=== PATIENT | male | born 1945 | race Caucasian/White ===

== ENCOUNTER → 2017-11-27 | Outpatient (CLI) | payer OTHER ==
[~2017-11-27] MED LIST: ATOR40TA71 PO; DOXA8TAB81 PO; HYDR12.54 PO; LISI10TA7 PO; POTA99TA4 PO; RIVA20TA PO; TRAM50TA4 PO; TURM500C9 PO; TYL3 PO
== END | disposition home or self-care (01) ==
LOC: SHCH 15:48
PROVIDERS: ATTEND Internal Medicine Cardiovascular Disease
DX: I87.2 Venous insufficiency (chronic) (peripheral) (principal)
CPT/HCPCS: 93970

== ENCOUNTER → 2018-01-30 | Outpatient (CLI) | payer OTHER | END | disposition home or self-care (01) | LOC: SHCH 09:05 | PROVIDERS: ATTEND Internal Medicine Cardiovascular Disease | DX: R60.9 Edema, unspecified (principal); I10 Essential (primary) hypertension; I48.91 Unspecified atrial fibrillation; E78.00 Pure hypercholesterolemia, unspecified | CPT/HCPCS: 93306 ==

== ENCOUNTER 2018-04-04 06:23 | Day surgery (SDC) | payer OTHER ==
[2018-04-03 15:43] VITALS: BP 153/56
[2018-04-03 15:47] LABS: BASOPHILS % (AUTO) 1.4 % (0.0-5.0); EOSINOPHILS % (AUTO) 1.7 % (0.0-8.0); HEMATOCRIT 38.2 % (42-54); LYMPHOCYTES % (AUTO) 15.9 % (21.0-51.0); MEAN CORPUSCULAR HEMOGLOBIN 30.3 pg (27.0-33.0); MEAN CORPUSCULAR HGB CONC 33.7 g/dL (32.0-36.0); MONOCYTES % (AUTO) 9.3 % (3.0-13.0); NEUTROPHILS % (AUTO) 71.7 % (40.0-77.0); NUCLEATED RED BLOOD CELLS 0.1 % (0.0-0.19); PLATELET COUNT (AUTO) 347 K/uL (130-400); RED BLOOD CELL COUNT(AUTO) 4.24 MIL/uL (4.50-6.20); RED CELL DISTRIBUTION WIDTH 13.5 % (11.0-15.5); WHITE BLOOD COUNT (AUTO) 8.9 K/uL (4.8-10.8)
[2018-04-03 15:56] LABS: CREATININE 1.3 mg/dL (0.5-1.5); POTASSIUM 4.2 mmol/L (3.5-5.1)
[2018-04-04] VITALS (13 sets, daily range): BP systolic 113–139; BP diastolic 40–67
[~2018-04-04] VITALS: Ht 177.8 cm; Wt 122.6 kg
[2018-04-04] MEDS: CEFAZOLIN SODIUM 1 GM VIAL IVP SCH ×2 (06:00→08:20)
[~2018-04-04 06:23] MED LIST changes: -POTA99TA4 PO; -TRAM50TA4 PO; -TYL3 PO
[2018-04-04] MEDS ORDERED: CEFAZOLIN SODIUM 1 GM VIAL ONE (07:17)
[2018-04-04] MEDS ORDERED: LACTATED RINGERS 1000ML 1,000 ML IV ONE (07:17)
[2018-04-04] MEDS ORDERED: DEXAMETHASONE SOD PHOSPHATE 10MG/ML 1ML VIAL ONE (08:10)
[2018-04-04] MEDS ORDERED: LIDOCAINE PF 2% 5ML ABBOJECT ONE (08:10)
[2018-04-04] MEDS ORDERED: ONDANSETRON HCL 4 MG/2 ML VIAL ONE (08:10)
[2018-04-04] MEDS ORDERED: GLYCOPYRROLATE 0.2 MG/ML 5 ML VIAL ONE (08:10)
[2018-04-04] MEDS ORDERED: MIDAZOLAM HCL 1 MG/ML 2ML VIAL ONE (08:11)
[2018-04-04] MEDS ORDERED: FENTANYL CITRATE PF 50 MCG/1 ML 2ML VIAL ONE (08:11)
[2018-04-04] MEDS ORDERED: PROPOFOL 10 MG/ML 20ML VIAL IV ONE (08:11)
[2018-04-04] MEDS ORDERED: POTA99TA4 PO (08:56)
[2018-04-04] MEDS ORDERED: TRAM50TA4 PO ×2 (08:56)
[2018-04-04] MEDS ORDERED: TYL3 PO (09:00)
[2018-04-04] MEDS ORDERED: MEPERIDINE-PF 25 MG/ML SYG ONE (09:21)
== END 2018-04-04 10:50 | disposition home or self-care (01) ==
LOC: DAH 06:23
PROVIDERS: ATTEND Orthopaedic Surgery
DX: S52.532A Colles' fracture of left radius, initial encounter for closed fracture (principal); X58.XXXA Exposure to other specified factors, initial encounter; Y93.9 Activity, unspecified; Y92.89 Other specified places as the place of occurrence of the external cause; Y99.9 Unspecified external cause status; I10 Essential (primary) hypertension; Z86.73 Personal history of transient ischemic attack (TIA), and cerebral infarction without residual deficits; Z98.890 Other specified postprocedural states; Z98.41 Cataract extraction status, right eye; Z68.42 Body mass index [BMI] 45.0-49.9, adult; Z68.37 Body mass index [BMI] 37.0-37.9, adult; E66.01 Morbid (severe) obesity due to excess calories; Z82.49 Family history of ischemic heart disease and other diseases of the circulatory system
CPT/HCPCS: 25606; 36415; 76000; 80048; 85025; 93005; A4218; A4649 ×2; A4930; A6223; C1713; J0690; J1100; J2001; J2175; J2250; J2405; J2704; J3010; J3490; J7120; Q4051

== ENCOUNTER → 2018-04-17 | Outpatient (CLI) | payer OTHER ==
[~2018-04-17] MED LIST changes: +POTA99TA4 PO; +TRAM50TA4 PO; +TYL3 PO
== END | disposition home or self-care (01) ==
LOC: SHCH 13:57
PROVIDERS: ATTEND Internal Medicine Cardiovascular Disease
DX: I87.2 Venous insufficiency (chronic) (peripheral) (principal)
CPT/HCPCS: 93970

== ENCOUNTER → 2019-12-10 | Outpatient (CLI) | payer OTHER | END | disposition home or self-care (01) | LOC: SHCH 11:10 | PROVIDERS: ATTEND Internal Medicine Cardiovascular Disease | DX: I87.2 Venous insufficiency (chronic) (peripheral) (principal) | CPT/HCPCS: 93970 ==

== ENCOUNTER → 2020-07-08 | Outpatient (CLI) | payer OTHER | END | disposition home or self-care (01) | LOC: SHCH 13:40 | PROVIDERS: ATTEND Internal Medicine Cardiovascular Disease | DX: I51.7 Cardiomegaly (principal); R07.9 Chest pain, unspecified; R06.09 Other forms of dyspnea; I73.9 Peripheral vascular disease, unspecified | CPT/HCPCS: 93306; 93356; 93925 ==

== ENCOUNTER → 2021-04-19 | Outpatient (CLI) | payer OTHER ==
[~2021-04-19] MED LIST changes: +LISI10TA24 PO; -LISI10TA7 PO
== END | disposition home or self-care (01) ==
LOC: SHCH 12:59
PROVIDERS: ATTEND Internal Medicine Cardiovascular Disease
DX: I87.2 Venous insufficiency (chronic) (peripheral) (principal); I83.893 Varicose veins of bilateral lower extremities with other complications
CPT/HCPCS: 93970

== ENCOUNTER → 2022-01-17 | Outpatient (CLI) | payer OTHER | END | disposition home or self-care (01) | LOC: SHCH 12:39 | PROVIDERS: ATTEND Internal Medicine Cardiovascular Disease | DX: I87.2 Venous insufficiency (chronic) (peripheral) (principal); Z95.828 Presence of other vascular implants and grafts | CPT/HCPCS: 93970 ==

== ENCOUNTER → 2022-02-21 | Outpatient (CLI) | payer OTHER ==
[2022-02-21 12:23] LABS: BASOPHILS % (AUTO) 0.9 % (0.0-5.0); EOSINOPHILS % (AUTO) 1.4 % (0.0-8.0); LYMPHOCYTES % (AUTO) 18.7 % (21.0-51.0); MEAN CORPUSCULAR HEMOGLOBIN 27.7 pg (27.0-33.0); MEAN CORPUSCULAR VOLUME 92.4 fL (79-99); MONOCYTES % (AUTO) 8.7 % (3.0-13.0); NEUTROPHILS % (AUTO) 69.7 % (40.0-77.0); PLATELET COUNT (AUTO) 532 K/uL (130-400); RED BLOOD CELL COUNT(AUTO) 3.68 MIL/uL (4.50-6.20); RED CELL DISTRIBUTION WIDTH 14.5 % (11.0-15.5); WHITE BLOOD COUNT (AUTO) 12.4 K/uL (4.8-10.8)
[2022-02-21 12:34] LABS: INR 1.38 (0.85-1.15); PROTHROMBIN TIME 14.6 SEC (9.6-11.6)
[2022-02-21 12:35] LABS: PARTIAL THROMBOPLASTIN TIME 40.4 SEC (26.3-35.5)
[2022-02-21 12:42] LABS: CREATININE 1.3 mg/dL (0.5-1.5); POTASSIUM 4.5 mmol/L (3.5-5.1)
== END | disposition home or self-care (01) ==
LOC: LAB 10:27
PROVIDERS: ATTEND Internal Medicine Cardiovascular Disease
DX: I48.91 Unspecified atrial fibrillation (principal); I87.1 Compression of vein; I87.2 Venous insufficiency (chronic) (peripheral)
CPT/HCPCS: 36415; 80048; 85025; 85610; 85730

== ENCOUNTER → 2022-05-09 | Outpatient (CLI) | payer OTHER | END | disposition home or self-care (01) | LOC: RAH 13:00 | PROVIDERS: ATTEND Family Medicine | DX: I82.601 Acute embolism and thrombosis of unspecified veins of right upper extremity (principal); R60.9 Edema, unspecified; G45.8 Other transient cerebral ischemic attacks and related syndromes | CPT/HCPCS: 93971 ==

== ENCOUNTER → 2022-08-08 | Outpatient (CLI) | payer OTHER | END | disposition home or self-care (01) | LOC: SHCH 14:28 | PROVIDERS: ATTEND Internal Medicine Cardiovascular Disease | DX: I48.0 Paroxysmal atrial fibrillation (principal); E78.5 Hyperlipidemia, unspecified; I48.20 Chronic atrial fibrillation, unspecified | CPT/HCPCS: 93306 ==

== ENCOUNTER → 2023-08-12 | Outpatient (CLI) | payer OTHER ==
[2023-08-12 16:14] LABS: BASOPHILS # (AUTO) 0.13 K/uL (0.00-0.20); BASOPHILS % (AUTO) 1.3 % (0.0-5.0); EOSINOPHILS # (AUTO) 0.38 K/uL (0.00-0.70); EOSINOPHILS % (AUTO) 3.9 % (0.0-8.0); HEMATOCRIT 35.2 % (42-54); IMMATURE GRANULOCYTE ABSOLUTE 0.03 K/uL (0-1); LYMPHOCYTES # (AUTO) 1.3 K/uL (1.0-4.8); LYMPHOCYTES % (AUTO) 13.9 % (21.0-51.0); MEAN CORPUSCULAR HGB CONC 30.7 g/dL (32.0-36.0); MEAN CORPUSCULAR VOLUME 94.4 fL (79-99); MONOCYTES # (AUTO) 0.9 K/uL (0.1-1.0); MONOCYTES % (AUTO) 8.8 % (3.0-13.0); NEUTROPHILS # (AUTO) 6.9 K/uL (1.8-7.7); NEUTROPHILS % (AUTO) 71.8 % (40.0-77.0); PLATELET COUNT (AUTO) 426 K/uL (130-400); RED BLOOD CELL COUNT(AUTO) 3.73 MIL/uL (4.50-6.20); RED CELL DISTRIBUTION WIDTH 16.3 % (11.0-15.5); WHITE BLOOD COUNT (AUTO) 9.7 K/uL (4.8-10.8)
[2023-08-12 16:21] LABS: CREATININE 1.6 mg/dL (0.5-1.5); POTASSIUM 4.4 mmol/L (3.5-5.1)
[2023-08-12 16:26] LABS: INR 1.14 (0.85-1.15); PROTHROMBIN TIME 13.1 SEC (9.6-11.6)
[2023-08-12 16:28] LABS: PARTIAL THROMBOPLASTIN TIME 38.6 SEC (26.3-35.5)
== END | disposition home or self-care (01) ==
LOC: LAB 14:27
PROVIDERS: ATTEND Internal Medicine Cardiovascular Disease
DX: I87.2 Venous insufficiency (chronic) (peripheral) (principal); I87.1 Compression of vein; I89.0 Lymphedema, not elsewhere classified; I10 Essential (primary) hypertension; E78.5 Hyperlipidemia, unspecified; M79.89 Other specified soft tissue disorders; E66.01 Morbid (severe) obesity due to excess calories; Z68.41 Body mass index [BMI] 40.0-44.9, adult; Z95.820 Peripheral vascular angioplasty status with implants and grafts; Z79.899 Other long term (current) drug therapy
CPT/HCPCS: 36415; 80048; 85025; 85610; 85730

== ENCOUNTER 2024-09-05 16:22 | Inpatient (IN) | payer OTHER ==
[~2024-09-05] VITALS: Ht 180.3 cm; Wt 135.6 kg
[2024-09-05] MEDS: ketOROlac 15MG/ML VIAL (15MG/ML) IV ONE (16:49)
[2024-09-05] MEDS: 0.9%NACL 1000ML 1,000 ML IV ONE (16:50)
--- NOTE | 2024-09-05 16:50 | ERN ---
General Chief Complaint: Weakness Stated Complaint: GBW Time Seen by MD: 16:24 History of Present Illness Initial Comments 79M BIB EMS from home for watery diarrhea & weakness x 2 days. Patient reports multiple episodes of watery diarrhea, non bloody, for past 2 days. Mild abdominal discomfort. No n/v. Decreased PO intake. No cough or congestion. Patient reports feeling quite weak. Hx: lymphedema to legs PCP: Yao Allergies: Coded Allergies: No Known Drug Allergies (Unverified Allergy, Unknown, 04/03/18) Home Meds Active Scripts Acetaminophen with Codeine (Tylenol with Codeine #3) 1 Tab Tab, 1-2 TAB PO Q6H for PAIN LEVEL 6-10, #60 TAB 1 Refill Prov:JAN JARRETT MD 04/04/18 Reported Medications Tramadol Hcl (Tramadol HCl) 50 Mg Tablet, 50 MG PO Q4H PRN for PAIN LEVEL 1 TO 5, TAB 04/04/18 Potassium (Potassium) 99 Mg Tablet, 99 MG PO AM, TAB 04/04/18 Doxazosin Mesylate (Doxazosin Mesylate) 8 Mg Tablet, 8 MG PO HS, TAB 04/03/18 Turmeric Root Extract (Turmeric) 500 Mg Capsule, 500 MG PO BID, CAP 04/03/18 Atorvastatin Calcium (Atorvastatin Calcium) 40 Mg Tablet, 20 MG PO DAILY, TAB 04/03/18 Hydrochlorothiazide (Hydrochlorothiazide) 12.5 Mg Tablet, 25 MG PO DAILY, TAB 04/03/18 Rivaroxaban (Xarelto) 20 Mg Tablet, 20 MG PO HS, TAB 04/03/18 Lisinopril (Lisinopril) 10 Mg Tablet, 10 MG PO DAILY, TAB 04/03/18 Past Medical History Past Medical History: Heart Disease Medical History Other: LYMPH EDEMA Past Surgical History: Other Surgical History Other: BILAT LEG STENTS ROS Dictation CONSTITUTIONAL: Weakness HEAD/FACE: No signs of trauma. EENT: No eye pain, no blurred vision, no tearing, no double vision, no ear pain, no ear discharge, no nose pain, no nasal congestion, no throat pain, no throat swelling, no mouth pain. RESPIRATORY: No cough, no orthopnea, no SOB, no stridor, no wheezing. CARDIOVASCULAR: No chest pain, no edema, no palpitations, no syncope. GASTROINTESTINAL/ABDOMINAL: Diarrhea GENITOURINARY: No abnormal discharge, no dysuria, no frequent urination, no hematuria. No complaints of pain in the genitals. MUSCULOSKELETAL: No back pain, no gout, no joint pain, no joint swelling, no muscle pain, no muscle stiffness, no neck pain. INTEGUMENTARY: No change in color, no change in hair/nails, no dryness, no lesion, no lumps, no rash. NEUROLOGICAL/PSYCH: No anxiety, not depressed, no emotional problem, no headache, no numbness, no pre-existing deficit, no history of seizures, no tremors, no weakness. HEMATOLOGIC/LYMPHATIC: Not anemic, no history of blood clots, no apparent bleeding, no bruising, glands not swollen. All Systems Negative, Except as Noted. Physical Exam Physical Exam Dictation VITAL SIGNS: Reviewed. GENERAL APPEARANCE: Alert, oriented x3, no acute distress, obese. HEAD AND FACE: Non-traumatic. EYES: PERRL, pink conjunctivas, eyelid no trauma, anterior chamber clear. EARS: Pinnas intact and no signs of trauma or erythema. Ear canals clear and no discharge. TMs no erythema. NOSE: No discharge, no bleeding. OROPHARYNX: Mouth normal, teeth no caries, tongue pink. Pharynx clear, no erythema. Tonsils no exudates, no abscesses noted. Mucous membrane moist. NECK: Supple, non-tender, no thyromegaly, no masses, no JVD, no bruits. BREAST: Deferred. CHEST: No tenderness, no crepitus, no paradoxical movement, no retractions. LUNGS: Clear, well-ventilated, symmetric, no rales, no wheezing, no rhonchi, no stridor, good breath sounds bilaterally. HEART: Regular rate, regular rhythm, no murmur, no gallops. VASCULAR: No peripheral edema. ABDOMEN: Soft, positive bowel sounds, nondistended, no guarding, nontender, no rebound, no masses no hepatomegaly, no splenomegaly, no Boyd's sign, no hernias. RECTAL: Deferred. GENITAL: Deferred. NEUROLOGICAL: Normal speech, gross motor function intact, gross sensory function intact. MUSCULOSKELETAL: Pedal edema bilateral legs chronic EXTREMITIES: Nontender, full range of motion. SKIN: Color pink, dry, no turgor, no rash, no lacerations, no abrasions, no contusions. LYMPHATICS: Deferred. Results Laboratory and Microbiology Lab and Micro Result Laboratory Tests Test 09/05/24 16:39 09/05/24 16:49 09/05/24 18:05 White Blood Count 18.1 K/uL (4.8-10.8) H Red Blood Count 3.61 MIL/uL (4.50-6.20) L Hemoglobin 9.3 g/dL (14.0-18.0) L Hematocrit 30.5 % (42-54) L Mean Corpuscular Volume 84.5 fL (79-99) Mean Corpuscular Hemoglobin 25.8 pg (27.0-33.0) L Mean Corpuscular Hemoglobin Concent 30.5 g/dL (32.0-36.0) L Red Cell Distribution Width 18.0 % (11.0-15.5) H Platelet Count 391 K/uL (130-400) Mean Platelet Volume 9.1 fL (7.5-10.5) Immature Granulocyte % (Auto) 1.7 % (0-1) H Neutrophils (%) (Auto) 91.0 % (40.0-77.0) H Lymphocytes (%) (Auto) 0.8 % (21.0-51.0) L Monocytes (%) (Auto) 5.5 % (3.0-13.0) Eosinophils (%) (Auto) 0.8 % (0.0-8.0) Basophils (%) (Auto) 0.2 % (0.0-5.0) Neutrophils # (Auto) 16.5 K/uL (1.8-7.7) H Lymphocytes # (Auto) 0.1 K/uL (1.0-4.8) L Monocytes # (Auto) 1.0 K/uL (0.1-1.0) Eosinophils # (Auto) 0.14 K/uL (0.00-0.70) Basophils # (Auto) 0.03 K/uL (0.00-0.20) Absolute Immature Granulocyte (auto 0.31 K/uL (0-1) Segmented Neutrophils % 77 % (40-70) H Band Neutrophils % 18 % (0-2) H Lymphocytes % (Manual) 1 % (22-44) L Monocytes % (Manual) 4 % (2-9) Nucleated Red Blood Cells 0.0 % (0.0-0.19) Differential Comment MANUAL DIFFERENTIAL White Cell Morphology Comment CONSISTENT W/DIFF Platelet Morphology Comment ADEQUATE Red Blood Cell Morphology See comments Sodium Level 133 mmol/L (136-145) L Potassium Level 3.8 mmol/L (3.5-5.1) Chloride Level 94 mmol/L (101-111) L Carbon Dioxide Level 35 mmol/L (21-32) H Blood Urea Nitrogen 43 mg/dL (7-18) H Creatinine 1.8 mg/dL (0.5-1.3) H Glomerular Filtration Rate Calc 38 mL/min (>90) Random Glucose 125 mg/dL (70-105) H Lactic Acid Level 3.3 mmol/L (0.8-2.5) H Total Calcium 8.0 mg/dL (8.5-10.1) L Total Bilirubin 1.1 mg/dL (0.2-1.0) H Direct Bilirubin 0.5 mg/dL (0.0-0.3) H Aspartate Amino Transf (AST/SGOT) 60 U/L (10-37) H Alanine Aminotransferase (ALT/SGPT) 18 U/L (12-78) Alkaline Phosphatase 90 U/L (50-136) Troponin I High Sensitivity 137 ng/L (4-75) *H Total Protein 5.9 g/dL (6.0-8.3) L Albumin 2.4 g/dL (3.5-5.0) L Lipase 8 U/L (16-77) L Procalcitonin 1.25 ng/mL (0.05-0.5) H Blood Gas Specimen Type Arterial Arterial Blood pH 7.450 (7.350-7.450) Arterial Blood Partial Pressure CO2 49 mmHg (35-48) H Arterial Blood Partial Pressure O2 45.7 mmHg (83.0-108.0) Arterial Blood HCO3 33.2 mmol/L (21.0-28.0) H Arterial Blood Oxygen Saturation 83.1 % (94.0-98.0) L Arterial Blood Base Excess 7.8 mmol/L (-2.0-3.0) H Blood Gas Temperature 37.0 CELSIUS (35.5-37.0) Blood Gas Vent Mode RA (ROOM AIR) FiO2 21.0 % Blood Gas Specimen Comment RBJUAN Urine Color YELLOW (YELLOW) Urine Appearance HAZY (CLEAR) Urine pH 5.0 (5.0-8.0) Urine Specific Jbphh 1.020 (1.001-1.031) Urine Protein 30 mg/dL (NEGATIVE) H Urine Glucose (UA) NEGATIVE mg/dL (NEGATIVE) Urine Ketones NEGATIVE mg/dL (NEGATIVE) Urine Occult Blood +- (TRACE) (NEGATIVE) H Urine Nitrate NEGATIVE (NEGATIVE) Urine Bilirubin NEGATIVE mg/dL (NEGATIVE) Urine Urobilinogen 3 mg/dL (0.2-1.0) H Urine Leukocyte Esterase 75 Haley/uL (NEGATIVE) H Urine RBC 6-10 /HPF (0-1) H Urine WBC 6-10 /HPF (0-1) H Urine Squamous Epithelial Cells RARE /HPF (0-2) Urine Bacteria FEW /HPF (None Seen) Urine Hyaline Casts 2-5 /LPF (0-1 /LPF) H MDM CC: Vomiting weakness diarrhea Historian: Patient Comorbidities: Lymphedema, obesity, advanced age Limitations by social determinants of health: None Differential diagnosis: Dehydration, gastroenteritis, electrolyte abnormality, sepsis, other. Vital signs: Afebrile, respiratory rate of 22, blood pressure stable. Patient did have episode of desaturation into the 80s, placed on 2 L nasal cannula. Labs show leukocytosis [id number] there is a left shift without bands. Normocytic anemia hemoglobin of 9.3. Blood gas shows normal pH, the pCO2 is 49 in the PaO2 his 45. Placed on 2 L oxygen. Chemistry shows dehydration sodium 133 chloride 94, the BUN is 43 and the creatinine is 1.8. Mild LY on CKD based on previous labs. Lactic acid is elevated 3.3. Patient's liver enzymes are relatively stable, lipase stable. Troponins mildly elevated 137, I suspect type 2 demand. Has not elevated pro count 1.25. Urinalysis shows some leuk esterase but is relatively unremarkable. CT abdomen and pelvis without contrast shows no free air or obvious abnormalities or surgical pathology per my independent interpretation. Radiology read the CT report which confirms no surgical pathology. Chest x-ray per my interpretation shows some vascular congestion and cardiomegaly. CT angio per my interpretation shows no obvious pulmonary embolism or saddle embolus. Lung chu are relatively clear. Here in the ER patient received IV Zosyn, Toradol, and 3 L of normal saline. On sepsis focused re-evaluation after the fluids and Zosyn, the patient has stable perfusion. We will admit for sepsis, respiratory failure with hypoxia, and others. ED Course Orders Procedure Category Date Status Time Cbc With Differential LAB 09/05/24 Complete 16:25 Troponin I High LAB 09/05/24 Complete Sensitivity 16:25 Urinalysis Profile LAB 09/05/24 Complete 16:25 0.9%Nacl 1000ml (Ns PHA 09/05/24 Complete 1000ml) 16:30 Ct Abdomen/Pelvis W/O CT 09/05/24 Resulted Contrast 16:25 Chest 1vw RAD 09/05/24 Resulted 16:25 Lipase LAB 09/05/24 Complete 16:25 Basic Metabolic Panel LAB 09/05/24 Complete 16:25 Hepatic Function Panel LAB 09/05/24 Complete 16:25 Procalcitonin LAB 09/05/24 Complete 16:25 Arterial Blood Gas RT 09/05/24 Transmitted 16:32 Lactic Acid LAB 09/05/24 Complete 16:39 Blood Cult MELONIE 09/05/24 In Process 16:39 Ketorolac PHA 09/05/24 Complete Tromethamine 15mg/Ml 17:00 Arterial Blood Gas LAB 09/05/24 Complete 16:49 Zosyn 3.375gm+Ns 50ml PHA 09/05/24 In Process (Zosyn 3.375gm+Ns 17:00 0.9%Nacl 1000ml (Ns PHA 09/05/24 Complete 1000ml) 17:00 Manual Differential LAB 09/05/24 Complete 16:39 Ct Chest Pe Protocol CT 09/05/24 Resulted Wwo Cont 17:32 Iohexol (Omnipaque) PHA 09/05/24 Complete 18:02 Culture Urine MELONIE 09/05/24 In Process 18:17 Current Medications Medications (Trade) Dose Ordered Sig/Coral Route PRN Reason Start Time Stop Time Status Last Admin Dose Admin Iohexol (Omnipaque) 35,000 mg STK-MED ONCE IV 09/05/24 18:02 09/05/24 18:05 DC Ketorolac Tromethamine (toRADol) 15 mg ONCE ONCE IV 09/05/24 17:00 09/05/24 17:01 DC 09/05/24 16:49 Piperacillin Sod/ Tazobactam Sod (Zosyn 3.375gm+NS 50ml) 3.375 gm Q8H IV 09/05/24 17:00 09/15/24 16:59 09/05/24 18:30 Sodium Chloride 1,000 ml @ 0 mls/hr ONCE ONCE IV 09/05/24 16:30 09/05/24 16:31 DC 09/05/24 16:50 Sodium Chloride 2,000 ml @ 0 mls/hr ONCE ONCE IV 09/05/24 17:00 09/05/24 17:02 DC 09/05/24 17:15 Vital Signs Date Time Temp Pulse Resp B/P (MAP) Pulse Ox O2 Delivery O2 Flow Rate FiO2 09/05/24 18:33 99.0 74 22 120/74 95 Nasal Cannula* 2 28 09/05/24 16:24 99.1 90 18 125/56 DX & DISP Disposition: Inpatient Departure Impression: Primary Impression: Sepsis Additional Impressions: Respiratory failure with hypoxia, Normocytic anemia, LY (acute kidney injury), Elevated troponin, UTI (urinary tract infection), Community acquired pneumonia Critical Time: 30 minutes (Critical Care Procedure NoteAuthorized and Performed by: meTotal critical care time: Approximately 36 minutesDue to a high probability of clinically significant, life threatening deterioration, the patient required my highest level of preparedness to intervene emergently and I personally spent this critical care time directly and personally managing the patient. This critical care time included obtaining a history; examining the patient; pulse oximetry; ordering and review of studies; arranging urgent treatment with development of a management plan; evaluation of patient's response to treatment; frequent reassessment; and, discussions with other providers.This critical care time was performed to assess and manage the high probability of imminent, life-threatening deterioration that could result in multi-organ failure. It was exclusive of separately billable procedures and treating other patients and teaching time.Please see MDM section and the rest of the note for further information on patient assessment and treatment.) Condition: Stable Referrals: KITTY NOVA MD (PCP) ALEXIS AZEVEDO DO Sep 05, 2024 16:50
[2024-09-05 16:51] LABS: ABG BASE EXCESS 7.8 mmol/L (-2.0-3.0); ABG HCO3 33.2 mmol/L (21.0-28.0); ABG OXYGEN SATURATION 83.1 % (94.0-98.0); ABG PCO2 49 mmHg (35-48); DEVICE COMMENT RBJUAN; PO2, ARTERIAL BG 45.7 mmHg (83.0-108.0); VENT MODE, BG RA (ROOM AIR)
[2024-09-05 16:55] LABS: BASOPHILS # (AUTO) 0.03 K/uL (0.00-0.20); BASOPHILS % (AUTO) 0.2 % (0.0-5.0); EOSINOPHILS # (AUTO) 0.14 K/uL (0.00-0.70); EOSINOPHILS % (AUTO) 0.8 % (0.0-8.0); HEMATOCRIT 30.5 % (42-54); IMMATURE GRANULOCYTE ABSOLUTE 0.31 K/uL (0-1); LYMPHOCYTES # (AUTO) 0.1 K/uL (1.0-4.8); LYMPHOCYTES % (AUTO) 0.8 % (21.0-51.0); MEAN CORPUSCULAR HEMOGLOBIN 25.8 pg (27.0-33.0); MEAN CORPUSCULAR HGB CONC 30.5 g/dL (32.0-36.0); MEAN CORPUSCULAR VOLUME 84.5 fL (79-99); MONOCYTES % (AUTO) 5.5 % (3.0-13.0); NEUTROPHILS # (AUTO) 16.5 K/uL (1.8-7.7); PLATELET COUNT (AUTO) 391 K/uL (130-400); RED BLOOD CELL COUNT(AUTO) 3.61 MIL/uL (4.50-6.20); WHITE BLOOD COUNT (AUTO) 18.1 K/uL (4.8-10.8)
[2024-09-05 17:06] LABS: CREATININE 1.8 mg/dL (0.5-1.3); POTASSIUM 3.8 mmol/L (3.5-5.1)
[2024-09-05 17:11] LABS: ALBUMIN 2.4 g/dL (3.5-5.0); BILIRUBIN,DIRECT 0.5 mg/dL (0.0-0.3); BILIRUBIN,TOTAL 1.1 mg/dL (0.2-1.0); TOTAL PROTEIN, SERUM 5.9 g/dL (6.0-8.3)
[2024-09-05] MEDS: 0.9%NACL 1000ML 2,000 ML IV ONE (17:15)
--- NOTE | 2024-09-05 17:27 | HMCIMG ---
INDICATION: vomiting TECHNIQUE: CHEST 1VW COMPARISON: 06/21/2015 FINDINGS/IMPRESSION: Bilateral airspace consolidation suggesting vascular congestion/edema versus pneumonia. Cardiomegaly is seen Mild degenerative changes of the spine. The visualized upper abdomen appears unremarkable.
--- NOTE | 2024-09-05 17:31 | HMCIMG ---
CT ABDOMEN/PELVIS W/O CONTRAST INDICATION: ABD PAIN TECHNIQUE: CT ABDOMEN/PELVIS W/O CONTRAST. Oral contrast was not given. Coronal and sagittal reformats were performed. CT was performed with one or more of the following dose reduction techniques: Automated exposure control, adjustment of the mA and/or kV according to the patient's size, or use of the iterative reconstruction technique. Comparison: None. FINDINGS: The noncontrast nature this study limits evaluation of abdominal viscera. Mild atelectatic changes are seen in the lung bases. Small right pleural effusion is seen. The heart is dilated. There is hepatic steatosis. Cholecystectomy changes are noted. The spleen, pancreas, and adrenal glands are within normal limits. No hydronephrosis. The urinary bladder is partially collapsed. Heterogeneous prostate. Study is degraded due to patient's large body habitus. Diverticulosis coli without evidence of acute diverticulitis. There is mild constipation. Normal appendix. No bowel obstruction is seen. Diffuse soft tissue anasarca is noted. Atherosclerotic changes of the aorta with calcified plaques. Degenerative changes of the spine are seen. Bilateral iliac vein stents are seen. IMPRESSION: 1. Study is degraded due to patient's large body habitus. Diverticulosis coli without evidence of acute diverticulitis. There is mild constipation. Normal appendix. No bowel obstruction is seen. 2. Diffuse soft tissue anasarca is noted.
[2024-09-05 17:35] LABS: BAND NEUTROPHILS % (MANUAL) 18 % (0-2); LYMPHOCYTES % (MANUAL) 1 % (22-44); MAN.DIFF COMMENT-IMPRESSION MANUAL DIFFERENTIAL; MONOCYTES % (MANUAL) 4 % (2-9); PLATELET MORPHOLOGY COMMENT ADEQUATE; SEGMENTED NEUTROPHILS % 77 % (40-70); TOTAL CELLS COUNTED 100; WBC MORPHOLOGY CONSISTENT W/DIFF
[2024-09-05] MEDS ORDERED: IOHEXOL 350 MG/ML 100ML INFUS..BTL IV ONE (18:02)
[2024-09-05 18:17] LABS: ADD UA MICROSCOPIC YES; APPEARANCE,URINE HAZY (CLEAR); BILIRUBIN,URINE NEGATIVE (NEGATIVE); COLOR,URINE YELLOW (YELLOW); GLUCOSE, URINE (UA) NEGATIVE (NEGATIVE); KETONES,URINE NEGATIVE (NEGATIVE); LEUKOCYTE ESTERASE ,URINE 75 Leu/uL (NEGATIVE); NITRATE,URINE NEGATIVE (NEGATIVE); PROTEIN,URINE 30 mg/dL (NEGATIVE); UROBILINOGEN,URINE 3 mg/dL (0.2-1.0)
[2024-09-05 18:24] LABS: BACTERIA,URINE FEW /HPF (None Seen); MUCUS,URINE RARE LPF (None Seen); SQUAMOUS EPITHELIAL CELL,UR RARE /HPF (0-2)
[2024-09-05] MEDS: ZOSYN 3.375GM +NS 50ML IV SCH (18:30)
--- NOTE | 2024-09-05 18:47 | HMCIMG ---
CT CHEST PE PROTOCOL O CONT HISTORY: dyspnea TECHNIQUE: CT CHEST PE PROTOCOL WWO CONT. Omnipaque contrast was given.. Coronal, sagittal and MIP reformats were obtained. CT was performed with one or more of the following dose reduction techniques: Automated exposure control, adjustment of the mA and/or kV according to the patient's size, or use of the iterative reconstruction technique. FINDINGS: Small right pleural effusion is seen. Mild bilateral groundglass opacities which may may represent hypoventilatory changes versus early edema/infection. Correlate clinically. The heart is dilated. No pulmonary embolus is identified. There is no pericardial effusion. Aorta is normal in caliber. There is no acute findings in the visualized upper abdomen. Degenerative changes of the spine are noted. IMPRESSION: 1. Small right pleural effusion is seen. Mild bilateral groundglass opacities which may may represent hypoventilatory changes versus early edema/infection. Correlate clinically. The heart is dilated. 2. No pulmonary embolus is identified.
[2024-09-05] MEDS ORDERED: acetaMINOPHEN 650 MG SUPPOSITORY RC PRN (20:30)
[2024-09-05] MEDS ORDERED: ondanSETRON 4MG INJ IVP PRN (20:30)
[2024-09-05] MEDS ORDERED: LAbetaLOL 20MG SYG IV PRN (20:30)
[2024-09-05] MEDS ORDERED: hydrALAZine 20MG/ML VIAL IV PRN (20:30)
[2024-09-05] MEDS ORDERED: ZOSYN 3.375GM +NS 50ML IV SCH (20:30)
[2024-09-05] MEDS: INSULIN humuLIN R 100 UNIT/ML 3ML SQ SCH (21:00)
[2024-09-05] MEDS: HEParin 5,000 UNIT VIAL SQ SCH (21:33)
--- NOTE | 2024-09-05 21:41 | HP ---
[facility] HISTORY & PHYSICAL Date Patient Seen: Sep 05, 2024 Time of Visit: 21:40 Supervising Physician: Dr Colby Thomas Primary Care Physician: Dr. Weinberg Outpatient Specialists: [ ] Inpatient Consults: [ ] PROBLEM LIST: Acute hypoxic respiratory failure, POA Possible community-acquired pneumonia, POA Acute kidney injury, initial creatinine level of 1.8, POA Chronic lymphedema, POA Severe sepsis, etiology unclear at this time Urinary tract infection, POA Bilateral lower extremity cellulitis, POA Hyponatremia, POA NSTEMI, POA Morbid obesity, POA Acute diarrhea, POA PLAN: Admit to medical-surgical floor with telemetry VS per unit protocol Wound care consult in a.m. Avoid nephrotoxic agents Renally dose all medications Insert Corona catheter Continue antibiotics Treat fever aggressively Monitor temperature curve Continue O2 therapy Keep head of bed above 30 Incentive spirometry DuoNeb q.6 hours Mucomyst b.i.d. We will obtain 2D echo CBC, CMP, magnesium level daily HPI: 79-year-old male with past medical history of chronic lymphedema, bilateral lower extremity venous insufficiency, morbid obesity who presented to ED via EMS with complaint of diarrhea x2 days with associated generalized body weakness and found to have NSTEMI, LY, possible community-acquired pneumonia, severe sepsis, urinary tract infection, and possible bilateral lower extremity cellulitis, with chronic lymphedema. Patient was seen and examined in ED with present at bedside. According to the patient has been having lots of diarrhea for the past days however today patient is unable to get up on his own that is why she activated EMS to bring patient here for medical evaluation. In ED CBC was done and showed WBC [place] [id number], hemoglobin of 9.3, hematocrit of 30.5, and platelet of 391. His chemistry is notable for creatinine level of 1.8, BUN 42, sodium of 133, initial lactic acid of 2.2 Up to 3.3. UA was obtain and showed positive leuko esterase and nitrites. Chest x-ray was obtained and showed small pleural effusion with ground-glass opacities bilaterally, CT of the chest was also done and showed no acute embolism, and redemonstration of ground-glass opacities. CT of the abdomen did not reveal any acute intra-abdominal process however there is mild constipation with anasarca. Initial evaluation in ED patient was found to be hypoxic requiring O2 therapy, currently on nasal cannula with 97% O2 saturation on the monitor. Patient was also initiated on sepsis protocol and started on Zosyn IV. At present patient is currently hemodynamically stable, not in acute respiratory distress, normal sinus rhythm on the monitor. Patient denies any confusion, headache, chest pain, however he is complaining of abdominal distention, generalized body weakness, and poor appetite. On initial evaluation there is bilateral lower extremity edema, with elastic bandage bilateral lower extremity with dried drainage. Patient denies any smoking, illicit drug use and drinks occasionally. Patient is vaccinated against COVID virus and his flu shot is up-to-date. PAST MEDICAL HX: see above PAST SURGICAL HX: noncontributory SOCIAL HISTORY: No tobacco, ETOH, or illicit drug use Coded Allergies: No Known Drug Allergies (Unverified Allergy, Unknown, 04/03/18) REVIEW OF SYSTEMS: 12 point ROS reviewed with patient. Pertinent positives mentioned above. Otherwise negative. PHYSICAL EXAM: GENERAL: alert, weak, awake oriented x 3 HEENT: EOMI, Sclera non icteric, moist mucosa NECK: Supple, no JVD, trachea midline LUNGS: Diminished bibasilar area HEART: Regular rate and rhythm. Normal S1 and S2, without murmurs ABD: Distended abdomen with audible bowel sounds EXT: Edematous bilateral lower extremity with elastic bandage on bilateral lower extremity with dry drainage noted NEURO: Alert and oriented to person, follows commands Vital Signs (last 8hr) Date Time Temp Pulse Resp B/P (MAP) Pulse Ox O2 Delivery O2 Flow Rate FiO2 09/05/24 20:00 76 18 118/48 9 Nasal Cannula* 2 28 09/05/24 18:33 99.0 74 22 120/74 95 Nasal Cannula* 2 28 09/05/24 16:24 99.1 90 18 125/56 LABS: Hematology Labs: Test 09/05/24 16:39 Range/Units White Blood Count 18.1 H 4.8-10.8 K/uL Red Blood Count 3.61 L 4.50-6.20 MIL/uL Hemoglobin 9.3 L 14.0-18.0 g/dL Hematocrit 30.5 L 42-54 % Mean Corpuscular Volume 84.5 79-99 fL Mean Corpuscular Hemoglobin 25.8 L 27.0-33.0 pg Mean Corpuscular Hemoglobin Concent 30.5 L 32.0-36.0 g/dL Red Cell Distribution Width 18.0 H 11.0-15.5 % Platelet Count 391 130-400 K/uL Mean Platelet Volume 9.1 7.5-10.5 fL Immature Granulocyte % (Auto) 1.7 H 0-1 % Neutrophils (%) (Auto) 91.0 H 40.0-77.0 % Lymphocytes (%) (Auto) 0.8 L 21.0-51.0 % Monocytes (%) (Auto) 5.5 3.0-13.0 % Eosinophils (%) (Auto) 0.8 0.0-8.0 % Basophils (%) (Auto) 0.2 0.0-5.0 % Neutrophils # (Auto) 16.5 H 1.8-7.7 K/uL Lymphocytes # (Auto) 0.1 L 1.0-4.8 K/uL Monocytes # (Auto) 1.0 0.1-1.0 K/uL Eosinophils # (Auto) 0.14 0.00-0.70 K/uL Basophils # (Auto) 0.03 0.00-0.20 K/uL Absolute Immature Granulocyte (auto 0.31 0-1 K/uL Segmented Neutrophils % 77 H 40-70 % Band Neutrophils % 18 H 0-2 % Lymphocytes % (Manual) 1 L 22-44 % Monocytes % (Manual) 4 2-9 % Nucleated Red Blood Cells 0.0 0.0-0.19 % Differential Comment MANUAL DIFFERENTIAL White Cell Morphology Comment CONSISTENT W/DIFF Platelet Morphology Comment ADEQUATE Red Blood Cell Morphology See comments Chemistry Labs: Test 09/05/24 20:50 09/05/24 16:39 Range/Units Lactic Acid Level 2.2 0.8-2.5 mmol/L Sodium Level 133 L 136-145 mmol/L Potassium Level 3.8 3.5-5.1 mmol/L Chloride Level 94 L 101-111 mmol/L Carbon Dioxide Level 35 H 21-32 mmol/L Blood Urea Nitrogen 43 H 7-18 mg/dL Creatinine 1.8 H 0.5-1.3 mg/dL Glomerular Filtration Rate Calc 38 >90 mL/min Random Glucose 125 H 70-105 mg/dL Total Calcium 8.0 L 8.5-10.1 mg/dL Total Bilirubin 1.1 H 0.2-1.0 mg/dL Direct Bilirubin 0.5 H 0.0-0.3 mg/dL Aspartate Amino Transf (AST/SGOT) 60 H 10-37 U/L Alanine Aminotransferase (ALT/SGPT) 18 12-78 U/L Alkaline Phosphatase 90 50-136 U/L Troponin I High Sensitivity 137 *H 4-75 ng/L Total Protein 5.9 L 6.0-8.3 g/dL Albumin 2.4 L 3.5-5.0 g/dL Lipase 8 L 16-77 U/L Procalcitonin 1.25 H 0.05-0.5 ng/mL DIAGNOSTICS / RADIOLOGY RESULTS: CT CHEST PE PROTOCOL WWO CONT HISTORY: dyspnea TECHNIQUE: CT CHEST PE PROTOCOL WWO CONT. Omnipaque contrast was given.. Coronal, sagittal and MIP reformats were obtained. CT was performed with one or more of the following dose reduction techniques: Automated exposure control, adjustment of the mA and/or kV according to the patient's size, or use of the iterative reconstruction technique. FINDINGS: Small right pleural effusion is seen. Mild bilateral groundglass opacities which may may represent hypoventilatory changes versus early edema/infection. Correlate clinically. The heart is dilated. No pulmonary embolus is identified. There is no pericardial effusion. Aorta is normal in caliber. There is no acute findings in the visualized upper abdomen. Degenerative changes of the spine are noted. IMPRESSION: 1. Small right pleural effusion is seen. Mild bilateral groundglass opacities which may may represent hypoventilatory changes versus early edema/infection. Correlate clinically. The heart is dilated. 2. No pulmonary embolus is identified. CT ABDOMEN/PELVIS W/O CONTRAST INDICATION: ABD PAIN TECHNIQUE: CT ABDOMEN/PELVIS W/O CONTRAST. Oral contrast was not given. Coronal and sagittal reformats were performed. CT was performed with one or more of the following dose reduction techniques: Automated exposure control, adjustment of the mA and/or kV according to the patient's size, or use of the iterative reconstruction technique. Comparison: None. FINDINGS: The noncontrast nature this study limits evaluation of abdominal viscera. Mild atelectatic changes are seen in the lung bases. Small right pleural effusion is seen. The heart is dilated. There is hepatic steatosis. Cholecystectomy changes are noted. The spleen, pancreas, and adrenal glands are within normal limits. No hydronephrosis. The urinary bladder is partially collapsed. Heterogeneous prostate. Study is degraded due to patient's large body habitus. Diverticulosis coli without evidence of acute diverticulitis. There is mild constipation. Normal appendix. No bowel obstruction is seen. Diffuse soft tissue anasarca is noted. Atherosclerotic changes of the aorta with calcified plaques. Degenerative changes of the spine are seen. Bilateral iliac vein stents are seen. IMPRESSION: 1. Study is degraded due to patient's large body habitus. Diverticulosis coli without evidence of acute diverticulitis. There is mild constipation. Normal appendix. No bowel obstruction is seen. 2. Diffuse soft tissue anasarca is noted. INDICATION: vomiting TECHNIQUE: CHEST 1VW COMPARISON: 06/21/2015 FINDINGS/IMPRESSION: Bilateral airspace consolidation suggesting vascular congestion/edema versus pneumonia. Cardiomegaly is seen Mild degenerative changes of the spine. The visualized upper abdomen appears unremarkable. PLAN NEURO: Minimize central acting medications as possible. Maintain fall precautions, adequate lighting during the day PULMONARY: Supplemental 02 as needed. Maintain aspiration precautions at all times CARDIOVASCULAR: Follow hemodynamics. Vital signs per facility protocol GI & NUTRITION: Continue with nutritional support. Continue stool softeners and laxatives as needed. KIDNEYS & ELECTROLYTES: Strict monitoring of intake, output and overall fluid balance. Avoid nephrotoxic medications to the extent possible. Medications to be dosed according to renal function. Monitor electrolytes and replace as needed ENDOCRINE: Maintain blood glucose between 100-180 at all times. Hypoglycemia protocol in place INFECTIOUS DISEASE: Trend temperature, WBC and procalcitonin level Follow cultures, deescalate antibiotics as soon as possible. Panculture if new onset fever ONCOLOGY/HEMATOLOGY/COAGULATION: Monitor for s/s of bleeding Monitor hemoglobin, coagulation studies as needed SKIN: Pressure ulcer prevention per facility protocol Specialty mattress ORTHO/REHAB: Continue PT/OT Prophylaxis: Continue GI and DVT prophylaxis Code Status: Full Resuscitation Disposition: TBD Other: Total patient care time exceeds 35 minutes excluding all procedures. Supervising Physician; NAVA Howe AGACNP Sep 05, 2024 21:41
[2024-09-05] MEDS ORDERED: VANCOMYCIN PROTOCOL PER PHARMACY IV SCH (23:00)
[2024-09-05] MEDS: ceFEPime HCL 1 GM VIAL IVPB SCH (23:20)
[2024-09-06] VITALS (8 sets, daily range): BP systolic 102–124; BP diastolic 48–85; PULSE 66–74; RESP 16–20; TEMP 98.3–99; O2SAT 99
[2024-09-06] MEDS: VANCOMYCIN 2GM/500 ML BAG 500 ML IV ONE (00:12)
[2024-09-06 00:17] LABS: SARS-CoV-2, RNA, NAAT NEGATIVE SARS CoV-2 (NEGATIVE)
[2024-09-06 00:20] LABS: INFLUENZA TYPE A Negative For Type A (NEGATIVE); INFLUENZA TYPE B Negative For Type B (NEGATIVE)
--- NOTE | 2024-09-06 01:05 | HMCIMG ---
US RENAL SONOGRAM HISTORY: Acute renal insufficiency COMPARISON: None TECHNIQUE: Renal and bladder ultrasound study was performed. FINDINGS: The right kidney measures 11 x 5.5 x 5.9 cm. The left kidney measures 11.3 x 6.3 x 5.5 cm. No evidence of hydronephrosis is seen of either kidney. Both kidneys are echogenic consistent with medical renal disease. Bladder is moderately distended. . The study is limited due to patient's underlying condition and overlying bowel gas. IMPRESSION: 1. No hydronephrosis is seen.
[2024-09-06] MEDS ORDERED: DIPH-1150 PO (03:30)
[2024-09-06] MEDS ORDERED: METO10TA8 PO (03:30)
[2024-09-06] MEDS ORDERED: LISI5TAB21 PO (03:30)
[2024-09-06] MEDS ORDERED: TORS20TA4 PO (03:30)
[2024-09-06] MEDS ORDERED: ACET-2743 PO (03:30)
[2024-09-06 06:02] LABS: BASOPHILS # (AUTO) 0.04 K/uL (0.00-0.20); BASOPHILS % (AUTO) 0.2 % (0.0-5.0); EOSINOPHILS # (AUTO) 0.01 K/uL (0.00-0.70); EOSINOPHILS % (AUTO) 0.1 % (0.0-8.0); HEMATOCRIT 31.7 % (42-54); IMMATURE GRANULOCYTE ABSOLUTE 0.18 K/uL (0-1); LYMPHOCYTES # (AUTO) 0.4 K/uL (1.0-4.8); LYMPHOCYTES % (AUTO) 2.3 % (21.0-51.0); MEAN CORPUSCULAR HEMOGLOBIN 25.9 pg (27.0-33.0); MEAN CORPUSCULAR HGB CONC 28.7 g/dL (32.0-36.0); MEAN CORPUSCULAR VOLUME 90.3 fL (79-99); MONOCYTES # (AUTO) 0.8 K/uL (0.1-1.0); MONOCYTES % (AUTO) 4.1 % (3.0-13.0); NEUTROPHILS # (AUTO) 16.9 K/uL (1.8-7.7); NEUTROPHILS % (AUTO) 92.3 % (40.0-77.0); PLATELET COUNT (AUTO) 331 K/uL (130-400); RED BLOOD CELL COUNT(AUTO) 3.51 MIL/uL (4.50-6.20); WHITE BLOOD COUNT (AUTO) 18.3 K/uL (4.8-10.8)
[2024-09-06 06:16] LABS: CREATININE 1.9 mg/dL (0.5-1.3); MAGNESIUM 2.4 mg/dL (1.80-2.40); PHOSPHORUS 4.6 mg/dL (2.5-4.9); POTASSIUM 4.3 mmol/L (3.5-5.1)
[2024-09-06] MEDS: polyETHYLene GLYCol 3350 17 GM POWD.PACK PO SCH (09:00)
[2024-09-06] MEDS: ASCORBIC ACID 500 MG TAB PO SCH (09:08)
[2024-09-06] MEDS: FERROUS SULFATE 325 MG TABLET.DR PO SCH (09:08)
[2024-09-06] MEDS: PANTOPrazole 40 MG TAB DR PO SCH (09:08)
--- NOTE | 2024-09-06 10:01 | PN ---
[facility] PROGRESS NOTE Date Patient Seen: Sep 06, 2024 Time of Visit: 09:45 Supervising Physician: [Dr. Tierney] Primary Care Physician: Dr. Weinberg Outpatient Specialists: [ ] Inpatient Consults: [ ] PROBLEM LIST: Severe sepsis without septic shock, POA Acute hypoxic respiratory failure, POA Community-acquired pneumonia, POA Gram positive bacteremia, pending final blood culture Acute gastroenteritis, POA Acute complicated cystitis, pending urine culture, POA Acute kidney injury, likely prerenal 2/2 hypovolemia, creatinine level of 1.8 on admission Chronic lymphedema, POA Bilateral lower extremity cellulitis, POA Hyponatremia, POA NSTEMI, POA Morbid obesity, POA PLAN: Start vancomycin per pharmacy protocol Obtain stool studies Repeat blood culture Follow final urine culture result Order TSH, BNP Repeat labs in AM Wound care consult Order venous doppler Pending echocardiogram Wound care consult in a.m. Avoid nephrotoxic agents Renally dose all medications Insert Corona catheter Continue antibiotics Treat fever aggressively Monitor temperature curve Continue O2 therapy Keep head of bed above 30 Incentive spirometry DuoNeb q.6 hours Mucomyst b.i.d. We will obtain 2D echo INTERVAL HISTORY: [This is a 79-year-old male with a history of chronic bilateral lymphedema who presented to the ED for evaluation of watery diarrhea and weakness associated with mild abdominal discomfort x2 days prior to arrival. Also reported decreased appetite, no nausea or vomiting on admission. He was treated with Zosyn, vancomycin, IV fluids with 3L NS, and Toradol. His labs on admission revealed leukocytosis with WBC of , hyponatremia at 133, elevated creatinine of 1.8 As well as elevated lactic acid at 3.3. Had mildly elevated liver enzymes, otherwise unremarkable with a bilirubin of 1.1. His CXR revealed bilateral pulmonary infiltrates. His CTA of the chest reveals mild bilateral ground-glass opacities with minimal right-sided pleural effusion as well as trivial left- sided pleural effusion. Negative for pulmonary embolism. His CT of the abdomen and pelvis revealed diverticulosis without diverticulitis, mild constipation and diffuse soft tissue anasarca. Blood pressure today is 115/85 with a heart rate of 74, afebrile. Patient continues with supplemental oxygen at 2 L NC. He did have low-grade temperature at 99 F last night, no fever. WBC today remain elevated at 18.3, electrolyte derangement improved, creatinine remains elevated at 1.1. Lactic acid is improved to 2.2. Patient also had mildly elevated troponin at 1:37 a.m., consistent with NSTEMI. His blood cultures are showing Gram-positive cocci in chains, pending final results. His urine cultures growing 10-50 K CFUs, pending final report. Procalcitonin was elevated at 1.25, ABG shows hypoxia with PO2 of 45. He is pending an echocardiogram.] REVIEW OF SYSTEMS: 12 point ROS reviewed with patient. Pertinent positives mentioned above. Otherwise negative. PHYSICAL EXAM: GENERAL: alert, weak, awake oriented x 3 HEENT: EOMI, Sclera non icteric, moist mucosa NECK: Supple, no JVD, trachea midline LUNGS: Diminished bibasilar area HEART: Regular rate and rhythm. Normal S1 and S2, without murmurs ABD: Distended abdomen with audible bowel sounds EXT: Edematous bilateral lower extremity with elastic bandage on bilateral lower extremity with dry drainage noted NEURO: Alert and oriented to person, follows commands Vital Signs (last 8hr) Date Time Temp Pulse Resp B/P (MAP) Pulse Ox O2 Delivery O2 Flow Rate FiO2 09/06/24 08:26 98.4 74 19 115/85 98 09/06/24 04:08 99 Nasal Cannula* 2 28 09/06/24 04:00 98.2 74 16 116/55 92 Nasal Cannula 3.5 09/06/24 04:00 98.2 74 16 116/55 92 Nasal Cannula 3.5 LABS: Hematology Labs: Test 09/06/24 05:59 09/05/24 16:39 Range/Units White Blood Count 18.3 H 4.8-10.8 K/uL Red Blood Count 3.51 L 4.50-6.20 MIL/uL Hemoglobin 9.1 L 14.0-18.0 g/dL Hematocrit 31.7 L 42-54 % Mean Corpuscular Volume 90.3 79-99 fL Mean Corpuscular Hemoglobin 25.9 L 27.0-33.0 pg Mean Corpuscular Hemoglobin Concent 28.7 L 32.0-36.0 g/dL Red Cell Distribution Width 18.0 H 11.0-15.5 % Platelet Count 331 130-400 K/uL Mean Platelet Volume 8.9 7.5-10.5 fL Immature Granulocyte % (Auto) 1.0 0-1 % Neutrophils (%) (Auto) 92.3 H 40.0-77.0 % Lymphocytes (%) (Auto) 2.3 L 21.0-51.0 % Monocytes (%) (Auto) 4.1 3.0-13.0 % Eosinophils (%) (Auto) 0.1 0.0-8.0 % Basophils (%) (Auto) 0.2 0.0-5.0 % Neutrophils # (Auto) 16.9 H 1.8-7.7 K/uL Lymphocytes # (Auto) 0.4 L 1.0-4.8 K/uL Monocytes # (Auto) 0.8 0.1-1.0 K/uL Eosinophils # (Auto) 0.01 0.00-0.70 K/uL Basophils # (Auto) 0.04 0.00-0.20 K/uL Absolute Immature Granulocyte (auto 0.18 0-1 K/uL Nucleated Red Blood Cells 0.0 0.0-0.19 % Segmented Neutrophils % 77 H 40-70 % Band Neutrophils % 18 H 0-2 % Lymphocytes % (Manual) 1 L 22-44 % Monocytes % (Manual) 4 2-9 % Differential Comment MANUAL DIFFERENTIAL White Cell Morphology Comment CONSISTENT W/DIFF Platelet Morphology Comment ADEQUATE Red Blood Cell Morphology See comments Chemistry Labs: Test 09/06/24 05:59 09/06/24 05:16 09/05/24 20:50 09/05/24 16:39 Range/Units Sodium Level 140 136-145 mmol/L Potassium Level 4.3 3.5-5.1 mmol/L Chloride Level 101 101-111 mmol/L Carbon Dioxide Level 35 H 21-32 mmol/L Blood Urea Nitrogen 45 H 7-18 mg/dL Creatinine 1.9 H 0.5-1.3 mg/dL Glomerular Filtration Rate Calc 35 >90 mL/min Random Glucose 146 H 70-105 mg/dL Total Calcium 7.8 L 8.5-10.1 mg/dL Phosphorus Level 4.6 2.5-4.9 mg/dL Magnesium Level 2.40 1.80-2.40 mg/dL Whole Blood Glucose 155 H 70-110 MG/DL Lactic Acid Level 2.2 0.8-2.5 mmol/L Total Bilirubin 1.1 H 0.2-1.0 mg/dL Direct Bilirubin 0.5 H 0.0-0.3 mg/dL Aspartate Amino Transf (AST/SGOT) 60 H 10-37 U/L Alanine Aminotransferase (ALT/SGPT) 18 12-78 U/L Alkaline Phosphatase 90 50-136 U/L Troponin I High Sensitivity 137 *H 4-75 ng/L Total Protein 5.9 L 6.0-8.3 g/dL Albumin 2.4 L 3.5-5.0 g/dL Lipase 8 L 16-77 U/L Procalcitonin 1.25 H 0.05-0.5 ng/mL DIAGNOSTICS / RADIOLOGY RESULTS: US RENAL SONOGRAM HISTORY: Acute renal insufficiency COMPARISON: None TECHNIQUE: Renal and bladder ultrasound study was performed. FINDINGS: The right kidney measures 11 x 5.5 x 5.9 cm. The left kidney measures 11.3 x 6.3 x 5.5 cm. No evidence of hydronephrosis is seen of either kidney. Both kidneys are echogenic consistent with medical renal disease. Bladder is moderately distended. . The study is limited due to patient's underlying condition and overlying bowel gas. IMPRESSION: 1. No hydronephrosis is seen. INDICATION: vomiting TECHNIQUE: CHEST 1VW COMPARISON: 06/21/2015 FINDINGS/IMPRESSION: Bilateral airspace consolidation suggesting vascular congestion/edema versus pneumonia. Cardiomegaly is seen Mild degenerative changes of the spine. The visualized upper abdomen appears unremarkable. CT CHEST PE PROTOCOL WWO CONT HISTORY: dyspnea TECHNIQUE: CT CHEST PE PROTOCOL WWO CONT. Omnipaque contrast was given.. Coronal, sagittal and MIP reformats were obtained. CT was performed with one or more of the following dose reduction techniques: Automated exposure control, adjustment of the mA and/or kV according to the patient's size, or use of the iterative reconstruction technique. FINDINGS: Small right pleural effusion is seen. Mild bilateral groundglass opacities which may may represent hypoventilatory changes versus early edema/infection. Correlate clinically. The heart is dilated. No pulmonary embolus is identified. There is no pericardial effusion. Aorta is normal in caliber. There is no acute findings in the visualized upper abdomen. Degenerative changes of the spine are noted. IMPRESSION: 1. Small right pleural effusion is seen. Mild bilateral groundglass opacities which may may represent hypoventilatory changes versus early edema/infection. Correlate clinically. The heart is dilated. 2. No pulmonary embolus is identified. US RENAL SONOGRAM HISTORY: Acute renal insufficiency COMPARISON: None TECHNIQUE: Renal and bladder ultrasound study was performed. FINDINGS: The right kidney measures 11 x 5.5 x 5.9 cm. The left kidney measures 11.3 x 6.3 x 5.5 cm. No evidence of hydronephrosis is seen of either kidney. Both kidneys are echogenic consistent with medical renal disease. Bladder is moderately distended. . The study is limited due to patient's underlying condition and overlying bowel gas. IMPRESSION: 1. No hydronephrosis is seen. PLAN NEURO: Minimize central acting medications as possible. Maintain fall precautions, adequate lighting during the day PULMONARY: Supplemental 02 as needed. Maintain aspiration precautions at all times CARDIOVASCULAR: Follow hemodynamics. Vital signs per facility protocol GI & NUTRITION: Continue with nutritional support. Continue stool softeners and laxatives as needed. KIDNEYS & ELECTROLYTES: Strict monitoring of intake, output and overall fluid balance. Avoid nephrotoxic medications to the extent possible. Medications to be dosed according to renal function. Monitor electrolytes and replace as needed ENDOCRINE: Maintain blood glucose between 100-180 at all times. Hypoglycemia protocol in place INFECTIOUS DISEASE: Trend temperature, WBC and procalcitonin level Follow cultures, deescalate antibiotics as soon as possible. Panculture if new onset fever ONCOLOGY/HEMATOLOGY/COAGULATION: Monitor for s/s of bleeding Monitor hemoglobin, coagulation studies as needed SKIN: Pressure ulcer prevention per facility protocol Specialty mattress ORTHO/REHAB: Continue PT/OT Prophylaxis: Continue GI and DVT prophylaxis Code Status: Full Resuscitation Disposition: TBD Other: Total patient care time exceeds 35 minutes excluding all procedures. MACRINA CHANDLER Sep 06, 2024 10:01
[2024-09-06] MEDS: RENAL DOSE IV ONE (10:17)
--- NOTE | 2024-09-06 14:34 | HMCSR ---
APPROVED REPORT EXAM: Two-dimensional and M-mode echocardiogram with Doppler and color Doppler. Study Details: Hx: Heart Disease INDICATION ICD: Cardiomegaly I51.7 2D Dimensions RVDd5.5 cmLVEF(%)43.8 (>50%)LVED Vol(simp.)160.0 mL IVSd0.8 (0.7-1.1cm)FS(%)22 %LVES Vol(simp.)67.1 mL LVDd5.9 (3.8-5.6cm)LA (2D)6.0 (1.6-4.0cm)LVEF(%, simp.)58 % PWd1.2 (0.7-1.1cm)Ao Root(2D)3.3 (2.0-3.7cm)LA ESV INDEX (4CH)50.40 mL/m2 IVSs1.3 cmLVOT diam2.3 (1.8-2.4cm)LA ESV INDEX (2CH)50.00 mL/m2 LVDs4.6 (2.5-4.0cm)LA ESV INDEX (BP)51.60 mL/m2 PWs1.5 cm Deformation Strain Apical 416.0 % Apical 216.0 % Apical 317.0 % Global Yjtzty70.0 % M-Mode Dimensions EPSS1.2 cm LA (MM)5.0 (1.6-4.0cm) Ao Root(MM)3.7 (2.0-3.7cm) Aortic Valve AoV VTI0.6 mAo Mean GR21.0 mmHgLVOT VTI0.23 m JELLY (VMAX)1.6 cm2Al P1/2T347 msAVA (VTI) 1.6 cm2 Mitral Valve MV E Dicl061.5 cm/sDECEL Scpc277 ms MR Max PG92 mmHgP 1/2 T85 ms MVA (PHT)2.6 cm2 TDI E/E' Pwsdcx24.4E/E' Zjigmde24.1 Medial E' Peak V6.00 cm/sLateral E' Peak V9.10 cm/s Pulmonary Valve PV VTI0.25 mPV Mean GR3 mmHg Tricuspid Valve TR Vmax2.7 m/sRAP (EST) 15 pkBfVMOR57.9 mmHg TR Peak GR29.9 mmHg Left Ventricle The left ventricle is borderline dilated. GLS -16.0%. There is normal left ventricular wall thickness . LVEF is 55-60%. Stage II, diastolic dysfunction. Right Ventricle The right ventricle is severely dilated. Right ventricular systolic function is borderline reduced. Atria The left atrium is severely dilated. LASVI 52mL/m. The right atrium is severely dilated. Aortic Valve Aortic valve is trileaflet and sclerotic. Mild aortic regurgitation is present. There is no aortic va lvular stenosis. Mitral Valve Mitral valve leaflets appear normal. There is mild mitral valve regurgitation noted. There is no mitr al valve stenosis. Tricuspid Valve The tricuspid valve leaflets appear normal. There is trace of tricuspid valve regurgitation noted. Pulmonic Valve The pulmonary valve is normal in structure and function. There is no pulmonic valvular regurgitation. Great Vessels The aortic root is normal in size. IVC is dilated and collapses <50% with inspiration. Pericardium No pericardial effusion. Other Information Quality : Good Conclusion LVEF is 55-60%. Stage II, diastolic dysfunction. GLS -16.0%. Mild aortic regurgitation is present. There is mild mitral valve regurgitation noted.
--- NOTE | 2024-09-06 17:19 | NUR ---
Discharge Planning: Pt. states he lives with his spouse Monik Estrella. Contact number is . PCP is Dr. Brary Weinberg, an [facility]. Pt. states he is independent with ADL's. No home health or provider services. Uses a walker to ambulate. DCP is for home. No d/c needs at present time. Addendum: 09/06/24 at 1722 by LOYDA CHEEMA RN CM Amended: Links added.
[2024-09-06] MEDS: acetaMINOPHEN 325 MG TAB PO PRN (18:14)
--- NOTE | 2024-09-06 19:03 | HMCIMG ---
US VENOUS DOPPLER BILATERAL HISTORY: DVT COMPARISON: None TECHNIQUE: Bilateral lower extremity venous Doppler ultrasound study was performed. FINDINGS: Bandages are seen in the bilateral lower extremities limiting evaluation. Posterior tibial veins, anterior tibial veins and peroneal veins are not seen. Right superficial femoral vein is not seen and cannot be evaluated. The common femoral, femoral, popliteal veins are visualized. Normal flow with compressibilities are demonstrated the visualized portion. The greater saphenous veins are also seen and grossly patent. IMPRESSION: 1. Very limited study due to overlying bandages. No evidence of deep venous thrombosis is seen in the visualized portion in this limited study.
--- NOTE | 2024-09-06 19:39 | NUR ---
NOTE TELEMETRY MONITORING REPORTED O THIS WRITTER @[id number] THAT PATIENT RHYTHM ABNORMAL ATRIAL FIBRILLATION 75 BPM, PAGED LINE CONSTRUCTION ENGINEER BENCHMARK TO REPORT FINDING, 12 LEAD EKG WAS ORDERED, REPORTED EKG FINDINGS TO LINE CONSTRUCTION ENGINEER BENCHMARK COMMERCIAL HVAC TECHNICIAN, NO NEW ORDERS
[2024-09-06] MEDS: RIVAROXABAN 20 MG TABLET PO SCH (21:24)
[2024-09-06] MEDS: metoLAZONE 2.5 MG TABLET PO SCH (21:25)
[2024-09-06] MEDS: DOXAZOSIN MESYLATE 2 MG TABLET PO SCH (21:25)
[2024-09-06] MEDS: ceFEPime HCL 1 GM VIAL IVPB SCH (22:39)
[2024-09-06] MEDS: VANCOMYCIN 1.25 GM/250 ML BAG 250 ML IV SCH (23:32)
[2024-09-07] VITALS (9 sets, daily range): BP systolic 117–152; BP diastolic 52–71; PULSE 70–76; RESP 17–24; TEMP 97.5–98.9; O2SAT 99
[2024-09-07 05:15] LABS: BASOPHILS # (AUTO) 0.02 K/uL (0.00-0.20); BASOPHILS % (AUTO) 0.2 % (0.0-5.0); EOSINOPHILS # (AUTO) 0.08 K/uL (0.00-0.70); EOSINOPHILS % (AUTO) 0.6 % (0.0-8.0); IMMATURE GRANULOCYTE ABSOLUTE 0.08 K/uL (0-1); LYMPHOCYTES # (AUTO) 0.5 K/uL (1.0-4.8); LYMPHOCYTES % (AUTO) 3.9 % (21.0-51.0); MEAN CORPUSCULAR HEMOGLOBIN 25.8 pg (27.0-33.0); MEAN CORPUSCULAR HGB CONC 29.7 g/dL (32.0-36.0); MEAN CORPUSCULAR VOLUME 87.1 fL (79-99); MONOCYTES # (AUTO) 1.1 K/uL (0.1-1.0); MONOCYTES % (AUTO) 8.5 % (3.0-13.0); NEUTROPHILS # (AUTO) 11.4 K/uL (1.8-7.7); NEUTROPHILS % (AUTO) 86.2 % (40.0-77.0); PLATELET COUNT (AUTO) 374 K/uL (130-400); RED BLOOD CELL COUNT(AUTO) 3.33 MIL/uL (4.50-6.20); RED CELL DISTRIBUTION WIDTH 17.8 % (11.0-15.5); WHITE BLOOD COUNT (AUTO) 13.2 K/uL (4.8-10.8)
[2024-09-07 05:41] LABS: ALBUMIN 2.1 g/dL (3.5-5.0); BILIRUBIN,TOTAL 0.7 mg/dL (0.2-1.0); CREATININE 1.9 mg/dL (0.5-1.3); POTASSIUM 3.7 mmol/L (3.5-5.1); TOTAL PROTEIN, SERUM 5.6 g/dL (6.0-8.3)
--- NOTE | 2024-09-07 08:38 | EKG ---
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: jamal masters : [id number] Requested By: DISHA RIVAS Order Number: [id number] Reading MD: Mayito Longoria Measurements Intervals [place] Rate: 75 P: 0 HI: 0 QRS: -18 QRSD: 134 T: -4 QT: 402 QTc: 448 Interpretive Statements Atrial fibrillation with premature ventricular or aberrantly conducted complexes Right bundle branch block Compared to ECG 04/03/2018 15:37:43 Ventricular premature complex(es) now present Right bundle-branch block now present Sinus rhythm no longer present Left ventricular hypertrophy no longer present Electronically Signed On 09-10-2024 18:37:30 CLINICAL TRAINING SPECIALIST by Mayito Longoria Please click the below link to view image of tracing.
[2024-09-07] MEDS: TORSEMIDE 20 MG TAB PO SCH (08:49)
--- NOTE | 2024-09-07 11:59 | PN ---
[facility] PROGRESS NOTE Date Patient Seen: Sep 07, 2024 Time of Visit: 11:49 Supervising Physician: [Dr. Austin] Primary Care Physician: Dr. Weinberg Outpatient Specialists: [ ] Inpatient Consults: [ ] PROBLEM LIST: Severe sepsis without septic shock, POA Acute hypoxic respiratory failure, POA Community-acquired pneumonia, POA Acute on chronic diastolic heart failure, EF of 55-60% Gram positive bacteremia, pending final blood culture Acute gastroenteritis, pending stool studies POA Acute complicated cystitis, pending urine culture, POA Acute kidney injury, likely prerenal 2/2 hypovolemia, creatinine level of 1.8 on admission Chronic lymphedema, POA Bilateral lower extremity cellulitis, POA Hyponatremia, POA NSTEMI, POA Morbid obesity, POA PLAN: Continue vancomycin per pharmacy protocol Pending stool studies One time dose of lasix 40mg IV Monitor volume status and creatinine Repeat blood culture negative Follow final urine culture result Repeat labs in AM Wound care consult Venous doppler negative Echocardiogram reviewed Avoid nephrotoxic agents Renally dose all medications Monitor I&O Continue O2 therapy as needed, wean off as tolerated Keep head of bed above 30 Incentive spirometry DuoNeb q.6 hours Mucomyst b.i.d. INTERVAL HISTORY: [This is a 79-year-old male with a history of chronic bilateral lymphedema who presented to the ED for evaluation of watery diarrhea and weakness associated with mild abdominal discomfort x2 days prior to arrival. Also reported decreased appetite, no nausea or vomiting on admission. He was treated with Zosyn, vancomycin, IV fluids with 3L NS, and Toradol. His labs on admission revealed leukocytosis with WBC of , hyponatremia at 133, elevated creatinine of 1.8 As well as elevated lactic acid at 3.3. Had mildly elevated liver enzymes, otherwise unremarkable with a bilirubin of 1.1. His CXR revealed bilateral pulmonary infiltrates. His CTA of the chest reveals mild bilateral ground-glass opacities with minimal right-sided pleural effusion as well as trivial left- sided pleural effusion. Negative for pulmonary embolism. His CT of the abdomen and pelvis revealed diverticulosis without diverticulitis, mild constipation and diffuse soft tissue anasarca. Blood pressure today is 115/85 with a heart rate of 74, afebrile. Patient continues with supplemental oxygen at 2 L NC. He did have low-grade temperature at 99 F last night, no fever. WBC today remain elevated at 18.3, electrolyte derangement improved, creatinine remains elevated at 1.1. Lactic acid is improved to 2.2. Patient also had mildly elevated troponin at 1:37 a.m., consistent with NSTEMI. His blood cultures are showing Gram-positive cocci in chains, pending final results. His urine cultures growing 10-50 K CFUs, pending final report. Procalcitonin was elevated at 1.25, ABG shows hypoxia with PO2 of 45. He is pending an echocardiogram.] 09/07 blood pressure is 152/65 with a heart rate of 72, afebrile. Patient remains hypoxic on 3 L NC. He has 500 mL documented urine output overnight. Continues on torsemide and metolazone. CBC shows improved WBC to 13, hemoglobin 8.6, platelets 374. BNP shows hyponatremia at 133, persistently elevated creatinine of 1.9, has not worsened. COVID and flu were negative. Initial blood cultures are positive 2/2 Gram-positive cocci in chains, pending susceptibility. Repeat blood cultures are negative. His urine culture is positive for Gram-negative rods, pending sensitivity. BNP is 526 and TSH is 1.96. He had an episode of atrial fibrillation with a heart rate of 75 overnight. An EKG was ordered, and confirmed atrial fibrillation with PVCs versus aberrancy, and a right bundle-branch block. No prior EKG available for comparison. His echocardiogram shows an EF of 55-60%, stage II diastolic dy sfunction and mild aortic and mitral valve regurgitation. Venous Doppler was negative for DVT bilaterally. Pending wound care eval. His diarrhea has resolved, no bowel movement today. REVIEW OF SYSTEMS: 12 point ROS reviewed with patient. Pertinent positives mentioned above. Otherwise negative. PHYSICAL EXAM: GENERAL: alert, weak, awake oriented x 3 HEENT: EOMI, Sclera non icteric, moist mucosa NECK: Supple, no JVD, trachea midline LUNGS: Diminished bibasilar area HEART: Regular rate and rhythm. Normal S1 and S2, without murmurs ABD: Distended abdomen with audible bowel sounds EXT: Edematous bilateral lower extremity with elastic bandage on bilateral lower extremity with dry drainage noted NEURO: Alert and oriented to person, follows commands Vital Signs (last 8hr) Date Time Temp Pulse Resp B/P (MAP) Pulse Ox O2 Delivery O2 Flow Rate FiO2 09/07/24 08:21 98.1 72 20 152/65 98 Nasal Cannula 3.0 09/07/24 04:00 99.0 75 20 125/58 99 Nasal Cannula 3.5 LABS: Hematology Labs: Test 09/07/24 04:56 09/05/24 16:39 Range/Units White Blood Count 13.2 #H 4.8-10.8 K/uL Red Blood Count 3.33 L 4.50-6.20 MIL/uL Hemoglobin 8.6 L 14.0-18.0 g/dL Hematocrit 29.0 L 42-54 % Mean Corpuscular Volume 87.1 79-99 fL Mean Corpuscular Hemoglobin 25.8 L 27.0-33.0 pg Mean Corpuscular Hemoglobin Concent 29.7 L 32.0-36.0 g/dL Red Cell Distribution Width 17.8 H 11.0-15.5 % Platelet Count 374 130-400 K/uL Mean Platelet Volume 9.2 7.5-10.5 fL Immature Granulocyte % (Auto) 0.6 0-1 % Neutrophils (%) (Auto) 86.2 H 40.0-77.0 % Lymphocytes (%) (Auto) 3.9 L 21.0-51.0 % Monocytes (%) (Auto) 8.5 3.0-13.0 % Eosinophils (%) (Auto) 0.6 0.0-8.0 % Basophils (%) (Auto) 0.2 0.0-5.0 % Neutrophils # (Auto) 11.4 H 1.8-7.7 K/uL Lymphocytes # (Auto) 0.5 L 1.0-4.8 K/uL Monocytes # (Auto) 1.1 H 0.1-1.0 K/uL Eosinophils # (Auto) 0.08 0.00-0.70 K/uL Basophils # (Auto) 0.02 0.00-0.20 K/uL Absolute Immature Granulocyte (auto 0.08 0-1 K/uL Nucleated Red Blood Cells 0.0 0.0-0.19 % Segmented Neutrophils % 77 H 40-70 % Band Neutrophils % 18 H 0-2 % Lymphocytes % (Manual) 1 L 22-44 % Monocytes % (Manual) 4 2-9 % Differential Comment MANUAL DIFFERENTIAL White Cell Morphology Comment CONSISTENT W/DIFF Platelet Morphology Comment ADEQUATE Red Blood Cell Morphology See comments Chemistry Labs: Test 09/07/24 11:10 09/07/24 04:56 09/06/24 05:59 09/05/24 20:50 Range/Units Whole Blood Glucose 122 H 70-110 MG/DL Sodium Level 133 L 136-145 mmol/L Potassium Level 3.7 3.5-5.1 mmol/L Chloride Level 94 L 101-111 mmol/L Carbon Dioxide Level 35 H 21-32 mmol/L Blood Urea Nitrogen 54 H 7-18 mg/dL Creatinine 1.9 H 0.5-1.3 mg/dL Glomerular Filtration Rate Calc 35 >90 mL/min Random Glucose 113 H 70-105 mg/dL Total Calcium 7.8 L 8.5-10.1 mg/dL Total Bilirubin 0.7 0.2-1.0 mg/dL Aspartate Amino Transf (AST/SGOT) 34 10-37 U/L Alanine Aminotransferase (ALT/SGPT) 23 12-78 U/L Alkaline Phosphatase 93 50-136 U/L Total Protein 5.6 L 6.0-8.3 g/dL Albumin 2.1 L 3.5-5.0 g/dL Phosphorus Level 4.6 2.5-4.9 mg/dL Magnesium Level 2.40 1.80-2.40 mg/dL B-Type Natriuretic Peptide 526 H 0-100 pg/mL Thyroid Stimulating Hormone (TSH) 1.96 0.36-3.74 uIU/mL Lactic Acid Level 2.2 0.8-2.5 mmol/L Test 09/05/24 16:39 Range/Units Direct Bilirubin 0.5 H 0.0-0.3 mg/dL Troponin I High Sensitivity 137 *H 4-75 ng/L Lipase 8 L 16-77 U/L Procalcitonin 1.25 H 0.05-0.5 ng/mL DIAGNOSTICS / RADIOLOGY RESULTS: Echo Conclusion LVEF is 55-60%. Stage II, diastolic dysfunction. GLS -16.0%. Mild aortic regurgitation is present. There is mild mitral valve regurgitation noted. US VENOUS DOPPLER BILATERAL HISTORY: DVT COMPARISON: None TECHNIQUE: Bilateral lower extremity venous Doppler ultrasound study was performed. FINDINGS: Bandages are seen in the bilateral lower extremities limiting evaluation. Posterior tibial veins, anterior tibial veins and peroneal veins are not seen. Right superficial femoral vein is not seen and cannot be evaluated. The common femoral, femoral, popliteal veins are visualized. Normal flow with compressibilities are demonstrated the visualized portion. The greater saphenous veins are also seen and grossly patent. IMPRESSION: 1. Very limited study due to overlying bandages. No evidence of deep venous thrombosis is seen in the visualized portion in this limited study. PLAN NEURO: Minimize central acting medications as possible. Maintain fall precautions, adequate lighting during the day PULMONARY: Supplemental 02 as needed. Maintain aspiration precautions at all times CARDIOVASCULAR: Follow hemodynamics. Vital signs per facility protocol GI & NUTRITION: Continue with nutritional support. Continue stool softeners and laxatives as needed. KIDNEYS & ELECTROLYTES: Strict monitoring of intake, output and overall fluid balance. Avoid nephrotoxic medications to the extent possible. Medications to be dosed according to renal function. Monitor electrolytes and replace as needed ENDOCRINE: Maintain blood glucose between 100-180 at all times. Hypoglycemia protocol in place INFECTIOUS DISEASE: Trend temperature, WBC and procalcitonin level Follow cultures, deescalate antibiotics as soon as possible. Panculture if new onset fever ONCOLOGY/HEMATOLOGY/COAGULATION: Monitor for s/s of bleeding Monitor hemoglobin, coagulation studies as needed SKIN: Pressure ulcer prevention per facility protocol Specialty mattress ORTHO/REHAB: Continue PT/OT Prophylaxis: Continue GI and DVT prophylaxis Code Status: Full Resuscitation Disposition: TBD Other: Total patient care time exceeds 55 minutes excluding all procedures. MACRINA CHANDLER Sep 07, 2024 11:59
[2024-09-07] MEDS: furoSEMIDE 40MG VIAL IV ONE (14:53)
[2024-09-07] MEDS: HYDROcodone/acetaMINOPHEN 10/325 MG TAB PO PRN (15:02)
--- NOTE | 2024-09-07 16:23 | NUR ---
[facility] Consult: Patient assessed by wound healing team. See wound assessment. Assessment and recommendations provided to primary nurse. Education provided. Wound care done. Addendum: 09/08/24 at 1532 by PAUL COHEN RN RN/ Amended: Links added.
[2024-09-08 04:00] VITALS: BP 109/48; PULSE 80; RESP 17; TEMP 98.7
[2024-09-08 05:29] LABS: BASOPHILS # (AUTO) 0.02 K/uL (0.00-0.20); BASOPHILS % (AUTO) 0.1 % (0.0-5.0); EOSINOPHILS # (AUTO) 0.05 K/uL (0.00-0.70); EOSINOPHILS % (AUTO) 0.4 % (0.0-8.0); HEMATOCRIT 29.2 % (42-54); IMMATURE GRANULOCYTE ABSOLUTE 0.13 K/uL (0-1); LYMPHOCYTES # (AUTO) 0.5 K/uL (1.0-4.8); LYMPHOCYTES % (AUTO) 3.8 % (21.0-51.0); MEAN CORPUSCULAR HEMOGLOBIN 25.6 pg (27.0-33.0); MEAN CORPUSCULAR HGB CONC 29.5 g/dL (32.0-36.0); MEAN CORPUSCULAR VOLUME 86.9 fL (79-99); MONOCYTES % (AUTO) 6.9 % (3.0-13.0); NEUTROPHILS # (AUTO) 12.3 K/uL (1.8-7.7); NEUTROPHILS % (AUTO) 87.9 % (40.0-77.0); NUCLEATED RED BLOOD CELLS 0.1 % (0.0-0.19); PLATELET COUNT (AUTO) 403 K/uL (130-400); RED BLOOD CELL COUNT(AUTO) 3.36 MIL/uL (4.50-6.20); RED CELL DISTRIBUTION WIDTH 17.8 % (11.0-15.5)
[2024-09-08 05:33] LABS: CREATININE 1.9 mg/dL (0.5-1.3)
[2024-09-08 08:00] VITALS: BP 111/50; PULSE 75; RESP 20; TEMP 97.6; O2SAT 98
--- NOTE | 2024-09-08 09:54 | HMCIMG ---
CHEST 1VW REASON: CHF COMPARISON: 09/05/2024 FINDINGS: There is myocardial megaly. There is no pulmonary vascular congestion. Lungs are clear. The Steinmann and bony thorax appear unremarkable. IMPRESSION: 1. Mild cardiac megaly, no acute finding.
[2024-09-08 12:00] VITALS: BP 135/56; PULSE 72; RESP 20; TEMP 97.6
--- NOTE | 2024-09-08 15:30 | PN ---
[facility] PROGRESS NOTE Date Patient Seen: Sep 08, 2024 Time of Visit: 15:07 Supervising Physician: [Dr. Austin] Primary Care Physician: Dr. Weinberg Outpatient Specialists: [ ] Inpatient Consults: [ ] PROBLEM LIST: Severe sepsis without septic shock, POA Acute hypoxic respiratory failure, POA Community-acquired pneumonia, POA Acute on chronic diastolic heart failure, EF of 55-60% Gram positive bacteremia, pending final blood culture Acute gastroenteritis, pending stool studies POA Acute complicated cystitis, pending urine culture, POA Acute kidney injury, likely prerenal 2/2 hypovolemia, creatinine level of 1.8 on admission Chronic lymphedema, POA Bilateral lower extremity cellulitis, POA Hyponatremia, POA NSTEMI, POA Morbid obesity, POA PLAN: DC vanco and cefepime Start Zyvox and complete X 14 days Pending stool studies Monitor volume status and creatinine Repeat blood culture negative Follow final urine culture result Repeat labs in AM Wound care consult Venous doppler negative Echocardiogram reviewed Avoid nephrotoxic agents Renally dose all medications Monitor I&O Continue O2 therapy as needed, wean off as tolerated Keep head of bed above 30 Incentive spirometry DuoNeb q.6 hours Mucomyst b.i.d. Start PT Start CPAP INTERVAL HISTORY: [This is a 79-year-old male with a history of chronic bilateral lymphedema who presented to the ED for evaluation of watery diarrhea and weakness associated with mild abdominal discomfort x2 days prior to arrival. Also reported decreased appetite, no nausea or vomiting on admission. He was treated with Zosyn, vancomycin, IV fluids with 3L NS, and Toradol. His labs on admission revealed leukocytosis with WBC of , hyponatremia at 133, elevated creatinine of 1.8 As well as elevated lactic acid at 3.3. Had mildly elevated liver enzymes, otherwise unremarkable with a bilirubin of 1.1. His CXR revealed bilateral pulmonary infiltrates. His CTA of the chest reveals mild bilateral ground-glass opacities with minimal right-sided pleural effusion as well as trivial left-si ded pleural effusion. Negative for pulmonary embolism. His CT of the abdomen and pelvis revealed diverticulosis without diverticulitis, mild constipation and diffuse soft tissue anasarca. Blood pressure today is 115/85 with a heart rate of 74, afebrile. Patient continues with supplemental oxygen at 2 L NC. He did have low-grade temperature at 99 F last night, no fever. WBC today remain elevated at 18.3, electrolyte derangement improved, creatinine remains elevated at 1.1. Lactic acid is improved to 2.2. Patient also had mildly elevated troponin at 1:37 a.m., consistent with NSTEMI. His blood cultures are showing Gram-positive cocci in chains, pending final results. His urine cultures growing 10-50 K CFUs, pending final report. Procalcitonin was elevated at 1.25, ABG shows hypoxia with PO2 of 45. He is pending an echocardiogram.] 09/07 blood pressure is 152/65 with a heart rate of 72, afebrile. Patient remains hypoxic on 3 L NC. He has 500 mL documented urine output overnight. Continues on torsemide and metolazone. CBC shows improved WBC to 13, hemoglobin 8.6, platelets 374. BNP shows hyponatremia at 133, persistently elevated creatinine of 1.9, has not worsened. COVID and flu were negative. Initial blood cultures are positive 2/2 Gram-positive cocci in chains, pending susceptibility. Repeat blood cultures are negative. His urine culture is positive for Gram-negative rods, pending sensitivity. BNP is 526 and TSH is 1.96. He had an episode of atrial fibrillation with a heart rate of 75 overnight. An EKG was ordered, and confirmed atrial fibrillation with PVCs versus aberrancy, and a right bundle-branch block. No prior EKG available for comparison. His echocardiogram shows an EF of 55-60%, stage II diastolic dysfunction and mild aortic and mitral valve regurgitation. Venous Doppler was negative for DVT bilaterally. Pending wound care eval. His diarrhea has resolved, no bowel movement today. 09/08 Patient is growing strep agalactiae group B on blood culture. Repeat blood culture is negative. He has about 700ml of urine output overnight. Creatinine stable at 1.9. Patient is recommended for home health for continued IV antibiotics. He is weak and continues with mild respiratory distress. Will order PT for ambulation and CPAP at night. CXR today is unremarkable. REVIEW OF SYSTEMS: 12 point ROS reviewed with patient. Pertinent positives mentioned above. Otherwise negative. PHYSICAL EXAM: GENERAL: alert, weak, awake oriented x 3 HEENT: EOMI, Sclera non icteric, moist mucosa NECK: Supple, no JVD, trachea midline LUNGS: Diminished bibasilar area HEART: Regular rate and rhythm. Normal S1 and S2, without murmurs ABD: Distended abdomen with audible bowel sounds EXT: Edematous bilateral lower extremity with elastic bandage on bilateral lower extremity with dry drainage noted NEURO: Alert and oriented to person, follows commands Vital Signs (last 8hr) Date Time Temp Pulse Resp B/P (MAP) Pulse Ox O2 Delivery O2 Flow Rate FiO2 09/08/24 12:00 97.5 72 20 135/56 97 Room Air 21 09/08/24 08:00 97.5 75 20 111/50 98 Room Air 98 LABS: Hematology Labs: Test 09/08/24 04:40 Range/Units White Blood Count 14.0 H 4.8-10.8 K/uL Red Blood Count 3.36 L 4.50-6.20 MIL/uL Hemoglobin 8.6 L 14.0-18.0 g/dL Hematocrit 29.2 L 42-54 % Mean Corpuscular Volume 86.9 79-99 fL Mean Corpuscular Hemoglobin 25.6 L 27.0-33.0 pg Mean Corpuscular Hemoglobin Concent 29.5 L 32.0-36.0 g/dL Red Cell Distribution Width 17.8 H 11.0-15.5 % Platelet Count 403 H 130-400 K/uL Mean Platelet Volume 9.6 7.5-10.5 fL Immature Granulocyte % (Auto) 0.9 0-1 % Neutrophils (%) (Auto) 87.9 H 40.0-77.0 % Lymphocytes (%) (Auto) 3.8 L 21.0-51.0 % Monocytes (%) (Auto) 6.9 3.0-13.0 % Eosinophils (%) (Auto) 0.4 0.0-8.0 % Basophils (%) (Auto) 0.1 0.0-5.0 % Neutrophils # (Auto) 12.3 H 1.8-7.7 K/uL Lymphocytes # (Auto) 0.5 L 1.0-4.8 K/uL Monocytes # (Auto) 1.0 0.1-1.0 K/uL Eosinophils # (Auto) 0.05 0.00-0.70 K/uL Basophils # (Auto) 0.02 0.00-0.20 K/uL Absolute Immature Granulocyte (auto 0.13 0-1 K/uL Nucleated Red Blood Cells 0.1 0.0-0.19 % Chemistry Labs: Test 09/08/24 11:31 09/08/24 04:40 09/07/24 04:56 Range/Units Whole Blood Glucose 136 H 70-110 MG/DL Sodium Level 138 136-145 mmol/L Potassium Level 4.0 3.5-5.1 mmol/L Chloride Level 99 L 101-111 mmol/L Carbon Dioxide Level 33 H 21-32 mmol/L Blood Urea Nitrogen 61 H 7-18 mg/dL Creatinine 1.9 H 0.5-1.3 mg/dL Glomerular Filtration Rate Calc 35 >90 mL/min Random Glucose 138 H 70-105 mg/dL Total Calcium 7.8 L 8.5-10.1 mg/dL Total Bilirubin 0.7 0.2-1.0 mg/dL Aspartate Amino Transf (AST/SGOT) 34 10-37 U/L Alanine Aminotransferase (ALT/SGPT) 23 12-78 U/L Alkaline Phosphatase 93 50-136 U/L Total Protein 5.6 L 6.0-8.3 g/dL Albumin 2.1 L 3.5-5.0 g/dL DIAGNOSTICS / RADIOLOGY RESULTS: CHEST 1VW REASON: CHF COMPARISON: 09/05/2024 FINDINGS: There is myocardial megaly. There is no pulmonary vascular congestion. Lungs are clear. The Steinmann and bony thorax appear unremarkable. IMPRESSION: 1. Mild cardiac megaly, no acute finding. PLAN NEURO: Minimize central acting medications as possible. Maintain fall precautions, adequate lighting during the day PULMONARY: Supplemental 02 as needed. Maintain aspiration precautions at all times CARDIOVASCULAR: Follow hemodynamics. Vital signs per facility protocol GI & NUTRITION: Continue with nutritional support. Continue stool softeners and laxatives as needed. KIDNEYS & ELECTROLYTES: Strict monitoring of intake, output and overall fluid balance. Avoid nephrotoxic medications to the extent possible. Medications to be dosed according to renal function. Monitor electrolytes and replace as needed ENDOCRINE: Maintain blood glucose between 100-180 at all times. Hypoglycemia protocol in place INFECTIOUS DISEASE: Trend temperature, WBC and procalcitonin level Follow cultures, deescalate antibiotics as soon as possible. Panculture if new onset fever ONCOLOGY/HEMATOLOGY/COAGULATION: Monitor for s/s of bleeding Monitor hemoglobin, coagulation studies as needed SKIN: Pressure ulcer prevention per facility protocol Specialty mattress ORTHO/REHAB: Continue PT/OT Prophylaxis: Continue GI and DVT prophylaxis Code Status: Full Resuscitation Disposition: TBD Other: Total patient care time exceeds 55 minutes excluding all procedures. MACRINA CHANDLER Sep 08, 2024 15:30
[2024-09-08] MEDS: LINEZOLID 600 MG/ISO-OSM 300 ML IV SCH (15:48)
[2024-09-08 16:00] VITALS: BP 123/62; PULSE 72; RESP 18; TEMP 98.5
--- NOTE | 2024-09-08 16:27 | NUR ---
Discharge Update: As per KEY Faye, disregard the prompt for home health for iv abx. Still pending culture results and possible iv abx adjustment.
[2024-09-08 19:55] VITALS: O2SAT 97
[2024-09-08 20:00] VITALS: BP 127/58; PULSE 76; RESP 18; TEMP 97.8
--- NOTE | 2024-09-08 20:10 | NUR ---
SACRAL ULCER ASSESSED PATIENTS SACRUM AND FOUND STAGE 3 OPEN ULCER, I TOOK PICTURES OF IT ON IPAD AND APPLIED PADS THAT AT BEDSIDE BROUGHT FROM HOME,SHE STATED THAT SHE WOULD APPLY THESE WHEN HE WOULD CHANGE THE DRESSINGS AT HOME AND APPLIED PUREWICK ON PATIENT WELL AND GOT 250 ML PATIENT RESTING IN BED, CALL LIGHT IN REACH
[2024-09-09] VITALS (7 sets, daily range): BP systolic 118–138; BP diastolic 45–70; PULSE 69–85; RESP 16–22; TEMP 97.4–98.5; O2SAT 92–97
[2024-09-09] MEDS: CEFTRIAXONE 2GM VIAL IVPB SCH (00:10)
[2024-09-09] MEDS: BACITRACIN 28.4 GM OINT TP ONE (08:54)
--- NOTE | 2024-09-09 12:00 | NUR ---
Order received and patient seen. Patient noted to be 313# with less than 3/5 strength, unable to assist with rolling or offloading. Recommend bariatric bed as patient already has sacra ulcers. Informed AMINA Martinez.
--- NOTE | 2024-09-09 12:50 | NUR ---
note wound care done by this writter as per recommendations, venalex ointment, alieve foam to sacrum, bratricin ointment and kerlex to right medial leg
--- NOTE | 2024-09-09 15:21 | PN ---
[facility] PROGRESS NOTE Date Patient Seen: Sep 09, 2024 Time of Visit: 15:14 Supervising Physician: [Dr. Vergara] Primary Care Physician: Dr. Weinberg Outpatient Specialists: [ ] Inpatient Consults: [ ] PROBLEM LIST: Severe sepsis without septic shock, POA Acute hypoxic respiratory failure, POA Community-acquired pneumonia, POA Acute on chronic diastolic heart failure, EF of 55-60% Gram positive bacteremia, pending final blood culture Acute gastroenteritis, pending stool studies POA Acute complicated cystitis, pending urine culture, POA Acute kidney injury, likely prerenal 2/2 hypovolemia, creatinine level of 1.8 on admission Chronic lymphedema, POA Bilateral lower extremity cellulitis, POA Hyponatremia, POA NSTEMI, POA Morbid obesity, POA PLAN: DC vanco and cefepime Continue rocephin to complete X 14 days Pending stool studies Monitor volume status and creatinine Repeat blood culture negative Follow final urine culture result Repeat labs in AM Wound care consult Venous doppler negative Echocardiogram reviewed Avoid nephrotoxic agents Renally dose all medications Monitor I&O Continue O2 therapy as needed, wean off as tolerated Keep head of bed above 30 Incentive spirometry DuoNeb q.6 hours Mucomyst b.i.d. Start PT Start CPAP INTERVAL HISTORY: [This is a 79-year-old male with a history of chronic bilateral lymphedema who presented to the ED for evaluation of watery diarrhea and weakness associated with mild abdominal discomfort x2 days prior to arrival. Also reported decreased appetite, no nausea or vomiting on admission. He was treated with Zosyn, vancomycin, IV fluids with 3L NS, and Toradol. His labs on admission revealed leukocytosis with WBC of , hyponatremia at 133, elevated creatinine of 1.8 As well as elevated lactic acid at 3.3. Had mildly elevated liver enzymes, otherwise unremarkable with a bilirubin of 1.1. His CXR revealed bilateral pulmonary infiltrates. His CTA of the chest reveals mild bilateral ground-glass opacities with minimal right-sided pleural effusion as well as trivial left- sided pleural effusion. Negative for pulmonary embolism. His CT of the abdomen and pelvis revealed diverticulosis without diverticulitis, mild constipation and diffuse soft tissue anasarca. Blood pressure today is 115/85 with a heart rate of 74, afebrile. Patient continues with supplemental oxygen at 2 L NC. He did have low-grade temperature at 99 F last night, no fever. WBC today remain elevated at 18.3, electrolyte derangement improved, creatinine remains elevated at 1.1. Lactic acid is improved to 2.2. Patient also had mildly elevated troponin at 1:37 a.m., consistent with NSTEMI. His blood cultures are showing Gram-positive cocci in chains, pending final results. His urine cultures growing 10-50 K CFUs, pending final report. Procalcitonin was elevated at 1.25, ABG shows hypoxia with PO2 of 45. He is pending an echocardiogram.] 09/07 blood pressure is 152/65 with a heart rate of 72, afebrile. Patient remains hypoxic on 3 L NC. He has 500 mL documented urine output overnight. Co ntinues on torsemide and metolazone. CBC shows improved WBC to 13, hemoglobin 8.6, platelets 374. BNP shows hyponatremia at 133, persistently elevated creatinine of 1.9, has not worsened. COVID and flu were negative. Initial blood cultures are positive 2/2 Gram-positive cocci in chains, pending susceptibility. Repeat blood cultures are negative. His urine culture is positive for Gram-negative rods, pending sensitivity. BNP is 526 and TSH is 1.96. He had an episode of atrial fibrillation with a heart rate of 75 overnight. An EKG was ordered, and confirmed atrial fibrillation with PVCs versus aberrancy, and a right bundle-branch block. No prior EKG available for comparison. His echocardiogram shows an EF of 55-60%, stage II diastolic dysfunction and mild aortic and mitral valve regurgitation. Venous Doppler was negative for DVT bilaterally. Pending wound care eval. His diarrhea has resolved, no bowel movement today. 09/08 Patient is growing strep agalactiae group B on blood culture. Repeat blood culture is negative. He has about 700ml of urine output overnight. Creatinine stable at 1.9. Patient is recommended for home health for continued IV antibiotics. He is weak and continues with mild respiratory distress. Will order PT for ambulation and CPAP at night. CXR today is unremarkable. 09/09 blood pressure is 123/70 with a heart rate of 75, afebrile. Patient continues on supplemental oxygen at 3 L NC. Has diuresed very little with 250 mL overnight. Continues with significant bilateral lower extremity swelling which is chronic lymphedema. Patient will need outpatient IV antibiotics to treat bacteremia and UTI. He has a sacral ulcer, pending wound care for eval as well as wound to bilateral lower extremities. He continues on metolazone 10 mg b.i.d. and torsemide 20 mg daily. Patient is growing Proteus vulgaris on urine culture which is sensitive to Rocephin. Repeat CXR is unremarkable. Patient and are agreeable to SNF. He refused to use CPAP at night. REVIEW OF SYSTEMS: 12 point ROS reviewed with patient. Pertinent positives mentioned above. Otherwise negative. PHYSICAL EXAM: GENERAL: alert, weak, awake oriented x 3 HEENT: EOMI, Sclera non icteric, moist mucosa NECK: Supple, no JVD, trachea midline LUNGS: Diminished bibasilar area HEART: Regular rate and rhythm. Normal S1 and S2, without murmurs ABD: Distended abdomen with audible bowel sounds EXT: Edematous bilateral lower extremity with elastic bandage on bilateral lower extremity with dry drainage noted NEURO: Alert and oriented to person, follows commands LABS: Hematology Labs: Test 09/08/24 04:40 Range/Units White Blood Count 14.0 H 4.8-10.8 K/uL Red Blood Count 3.36 L 4.50-6.20 MIL/uL Hemoglobin 8.6 L 14.0-18.0 g/dL Hematocrit 29.2 L 42-54 % Mean Corpuscular Volume 86.9 79-99 fL Mean Corpuscular Hemoglobin 25.6 L 27.0-33.0 pg Mean Corpuscular Hemoglobin Concent 29.5 L 32.0-36.0 g/dL Red Cell Distribution Width 17.8 H 11.0-15.5 % Platelet Count 403 H 130-400 K/uL Mean Platelet Volume 9.6 7.5-10.5 fL Immature Granulocyte % (Auto) 0.9 0-1 % Neutrophils (%) (Auto) 87.9 H 40.0-77.0 % Lymphocytes (%) (Auto) 3.8 L 21.0-51.0 % Monocytes (%) (Auto) 6.9 3.0-13.0 % Eosinophils (%) (Auto) 0.4 0.0-8.0 % Basophils (%) (Auto) 0.1 0.0-5.0 % Neutrophils # (Auto) 12.3 H 1.8-7.7 K/uL Lymphocytes # (Auto) 0.5 L 1.0-4.8 K/uL Monocytes # (Auto) 1.0 0.1-1.0 K/uL Eosinophils # (Auto) 0.05 0.00-0.70 K/uL Basophils # (Auto) 0.02 0.00-0.20 K/uL Absolute Immature Granulocyte (auto 0.13 0-1 K/uL Nucleated Red Blood Cells 0.1 0.0-0.19 % Chemistry Labs: Test 09/09/24 05:36 09/08/24 04:40 Range/Units Whole Blood Glucose 156 H 70-110 MG/DL Sodium Level 138 136-145 mmol/L Potassium Level 4.0 3.5-5.1 mmol/L Chloride Level 99 L 101-111 mmol/L Carbon Dioxide Level 33 H 21-32 mmol/L Blood Urea Nitrogen 61 H 7-18 mg/dL Creatinine 1.9 H 0.5-1.3 mg/dL Glomerular Filtration Rate Calc 35 >90 mL/min Random Glucose 138 H 70-105 mg/dL Total Calcium 7.8 L 8.5-10.1 mg/dL DIAGNOSTICS / RADIOLOGY RESULTS: CHEST 1VW REASON: CHF COMPARISON: 09/05/2024 FINDINGS: There is myocardial megaly. There is no pulmonary vascular congestion. Lungs are clear. The Steinmann and bony thorax appear unremarkable. IMPRESSION: 1. Mild cardiac megaly, no acute finding. PLAN NEURO: Minimize central acting medications as possible. Maintain fall precautions, adequate lighting during the day PULMONARY: Supplemental 02 as needed. Maintain aspiration precautions at all times CARDIOVASCULAR: Follow hemodynamics. Vital signs per facility protocol GI & NUTRITION: Continue with nutritional support. Continue stool softeners and laxatives as needed. KIDNEYS & ELECTROLYTES: Strict monitoring of intake, output and overall fluid balance. Avoid nephrotoxic medications to the extent possible. Medications to be dosed according to renal function. Monitor electrolytes and replace as needed ENDOCRINE: Maintain blood glucose between 100-180 at all times. Hypoglycemia protocol in place INFECTIOUS DISEASE: Trend temperature, WBC and procalcitonin level Follow cultures, deescalate antibiotics as soon as possible. Panculture if new onset fever ONCOLOGY/HEMATOLOGY/COAGULATION: Monitor for s/s of bleeding Monitor hemoglobin, coagulation studies as needed SKIN: Pressure ulcer prevention per facility protocol Specialty mattress ORTHO/REHAB: Continue PT/OT Prophylaxis: Continue GI and DVT prophylaxis Code Status: Full Resuscitation Disposition: TBD Other: Total patient care time exceeds 55 minutes excluding all procedures. MACRINA CHANDLER Sep 09, 2024 15:21
[2024-09-09] MEDS: HYDROcodone/APAP 5/325 1 TAB TABLET PO PRN (15:49)
[2024-09-09] MEDS: BALSAM PERU/CASTOR OIL 60 GM TUBE TP SCH (21:39)
[2024-09-10 03:36] VITALS: BP 139/50; PULSE 81; RESP 18; TEMP 98.5
[2024-09-10 05:08] LABS: HEMATOCRIT 26.2 % (42-54); MEAN CORPUSCULAR HEMOGLOBIN 25.3 pg (27.0-33.0); MEAN CORPUSCULAR HGB CONC 30.9 g/dL (32.0-36.0); MEAN CORPUSCULAR VOLUME 81.9 fL (79-99); NUCLEATED RED BLOOD CELLS 0.2 % (0.0-0.19); RED BLOOD CELL COUNT(AUTO) 3.2 MIL/uL (4.50-6.20); RED CELL DISTRIBUTION WIDTH 17.5 % (11.0-15.5); WHITE BLOOD COUNT (AUTO) 14.6 K/uL (4.8-10.8)
[2024-09-10 05:19] LABS: ALBUMIN 1.6 g/dL (3.5-5.0); BILIRUBIN,TOTAL 0.7 mg/dL (0.2-1.0); CREATININE 1.8 mg/dL (0.5-1.3); POTASSIUM 3.5 mmol/L (3.5-5.1); TOTAL PROTEIN, SERUM 5.3 g/dL (6.0-8.3)
[2024-09-10 08:00] VITALS: BP 139/53; PULSE 79; RESP 20; TEMP 98.2; O2SAT 97
--- NOTE | 2024-09-10 14:50 | NUR ---
note requested bariatric bed for patient, spoke to clinical supervisor lead burning Lele, bed was ordered
[2024-09-10 16:00] VITALS: BP 128/49; PULSE 73; RESP 22; TEMP 99
--- NOTE | 2024-09-10 16:51 | NUR ---
note 09/10/24 @3506 wound care performed using aseptic technique, sacral wound clensed with ns, venelex applied as per wound care recommendations, alieve foam pad applied, dressing clean and dry
--- NOTE | 2024-09-10 19:27 | PN ---
[facility] PROGRESS NOTE Date Patient Seen: Sep 10, 2024 Time of Visit: 19:14 Supervising Physician: [Dr. Vergara] Primary Care Physician: Dr. Weinberg Outpatient Specialists: [ ] Inpatient Consults: [ ] PROBLEM LIST: Severe sepsis without septic shock, improved POA Acute hypoxic respiratory failure, secondary to below POA Acute on chronic diastolic heart failure, EF of 55-60% Gram positive bacteremia, strep agalactiae group B positive on blood culture Acute gastroenteritis, pending stool studies POA Acute complicated cystitis, proteus vulgaris, POA Acute kidney injury, likely prerenal 2/2 hypovolemia, creatinine level of 1.8 on admission Chronic lymphedema, POA Bilateral lower extremity cellulitis, wound care following POA Hyponatremia, POA NSTEMI, POA Morbid obesity, POA PLAN: DC zyvox and rocephin Continue cefazolin to complete X 14 days Pending stool studies Monitor volume status and creatinine Repeat blood culture negative Repeat labs in AM Wound care consult Venous doppler negative Echocardiogram reviewed Avoid nephrotoxic agents Renally dose all medications Monitor I&O Continue O2 therapy as needed, wean off as tolerated Keep head of bed above 30 Incentive spirometry DuoNeb q.6 hours Mucomyst b.i.d. Start PT Start CPAP, patient refused INTERVAL HISTORY: [This is a 79-year-old male with a history of chronic bilateral lymphedema who presented to the ED for evaluation of watery diarrhea and weakness associated with mild abdominal discomfort x2 days prior to arrival. Also reported decreased appetite, no nausea or vomiting on admission. He was treated with Zosyn, vancomycin, IV fluids with 3L NS, and Toradol. His labs on admission revealed leukocytosis with WBC of , hyponatremia at 133, elevated creatinine of 1.8 As well as elevated lactic acid at 3.3. Had mildly elevated liver enzymes, otherwise unremarkable with a bilirubin of 1.1. His CXR revealed bilateral pulmonary infiltrates. His CTA of the chest reveals mild bilateral ground-glass opacities with minimal right-sided pleural effusion as well as trivial left- sided pleural effusion. Negative for pulmonary embolism. His CT of the abdomen and pelvis revealed diverticulosis without diverticulitis, mild constipation and diffuse soft tissue anasarca. Blood pressure today is 115/85 with a heart rate of 74, afebrile. Patient continues with supplemental oxygen at 2 L NC. He did have low-grade temperature at 99 F last night, no fever. WBC today remain elevated at 18.3, electrolyte derangement improved, creatinine remains elevated at 1.1. Lactic acid is improved to 2.2. Patient also had mildly elevated troponin at 1:37 a.m., consistent with NSTEMI. His blood cultures are showing Gram-positive cocci in chains, pending final results. His urine cultures growing 10-50 K CFUs, pending final report. Procalcitonin was elevated at 1.25, ABG shows hypoxia with PO2 of 45. He is pending an echocardiogram.] 09/07 blood pressure is 152/65 with a heart rate of 72, afebrile. Patient remains hypoxic on 3 L NC. He has 500 mL documented urine output overnight. Continues on torsemide and metolazone. CBC shows improved WBC to 13, hemoglobin 8.6, platelets 374. BNP shows hyponatremia at 133, persistently elevated creatinine of 1.9, has not worsened. COVID and flu were negative. Initial blood cultures are positive 2/2 Gram-positive cocci in chains, pending susceptibility. Repeat blood cultures are negative. His urine culture is positive for Gram-negative rods, pending sensitivity. BNP is 526 and TSH is 1.96. He had an episode of atrial fibrillation with a heart rate of 75 overnight. An EKG was ordered, and confirmed atrial fibrillation with PVCs versus aberrancy, and a right bundle-branch block. No prior EKG available for comparison. His echocardiogram shows an EF of 55-60%, stage II diastolic dysfunction and mild aortic and mitral valve regurgitation. Venous Doppler was negative for DVT bilaterally. Pending wound care eval. His diarrhea has resolved, no bowel movement today. 09/08 Patient is growing strep agalactiae group B on blood culture. Repeat blood culture is negative. He has about 700ml of urine output overnight. Creatinine stable at 1.9. Patient is recommended for home health for continued IV antibiotics. He is weak and continues with mild respiratory distress. Will order PT for ambulation and CPAP at night. CXR today is unremarkable. 09/09 blood pressure is 123/70 with a heart rate of 75, afebrile. Patient continues on supplemental oxygen at 3 L NC. Has diuresed very little with 250 mL overnight. Continues with significant bilateral lower extremity swelling which is chronic lymphedema. Patient will need outpatient IV antibiotics to treat bacteremia and UTI. He has a sacral ulcer, pending wound care for eval as well as wound to bilateral lower extremities. He continues on metolazone 10 mg b.i.d. and torsemide 20 mg daily. Patient is growing Proteus vulgaris on urine culture which is sensitive to Rocephin. Repeat CXR is unremarkable. Patient and are agreeable to SNF. He refused to use CPAP at night. 09/10 Patient has diuresed significantly with 3350ml of urine output overnight. He is documented on room air but is still using supplemental oxygen upon visit. He states his breathing is improved. He has been working with PT. Stool studies not resulted yet. WBCs remain elevated at 14. Will adjust antibiotics. Patient is pending SNF for IV antibiotics. REVIEW OF SYSTEMS: 12 point ROS reviewed with patient. Pertinent positives mentioned above. Otherwise negative. PHYSICAL EXAM: GENERAL: alert, weak, awake oriented x 3 HEENT: EOMI, Sclera non icteric, moist mucosa NECK: Supple, no JVD, trachea midline LUNGS: Diminished bibasilar area HEART: Regular rate and rhythm. Normal S1 and S2, without murmurs ABD: Distended abdomen with audible bowel sounds EXT: Edematous bilateral lower extremity with elastic bandage on bilateral lower extremity with dry drainage noted NEURO: Alert and oriented to person, follows commands Vital Signs (last 8hr) Date Time Temp Pulse Resp B/P (MAP) Pulse Ox O2 Delivery O2 Flow Rate FiO2 09/10/24 16:00 99.0 73 22 128/49 97 Room Air 21 LABS: Hematology Labs: Test 09/10/24 04:57 Range/Units White Blood Count 14.6 H 4.8-10.8 K/uL Red Blood Count 3.20 L 4.50-6.20 MIL/uL Hemoglobin 8.1 L 14.0-18.0 g/dL Hematocrit 26.2 L 42-54 % Mean Corpuscular Volume 81.9 79-99 fL Mean Corpuscular Hemoglobin 25.3 L 27.0-33.0 pg Mean Corpuscular Hemoglobin Concent 30.9 L 32.0-36.0 g/dL Red Cell Distribution Width 17.5 H 11.0-15.5 % Platelet Count 484 H 130-400 K/uL Mean Platelet Volume 9.4 7.5-10.5 fL Nucleated Red Blood Cells 0.2 H 0.0-0.19 % Chemistry Labs: Test 09/10/24 16:04 09/10/24 04:57 Range/Units Whole Blood Glucose 151 H 70-110 MG/DL Sodium Level 134 L 136-145 mmol/L Potassium Level 3.5 3.5-5.1 mmol/L Chloride Level 94 L 101-111 mmol/L Carbon Dioxide Level 34 H 21-32 mmol/L Blood Urea Nitrogen 68 H 7-18 mg/dL Creatinine 1.8 H 0.5-1.3 mg/dL Glomerular Filtration Rate Calc 38 >90 mL/min Random Glucose 142 H 70-105 mg/dL Total Calcium 7.8 L 8.5-10.1 mg/dL Total Bilirubin 0.7 0.2-1.0 mg/dL Aspartate Amino Transf (AST/SGOT) 21 10-37 U/L Alanine Aminotransferase (ALT/SGPT) 18 12-78 U/L Alkaline Phosphatase 138 H 50-136 U/L Total Protein 5.3 L 6.0-8.3 g/dL Albumin 1.6 L 3.5-5.0 g/dL DIAGNOSTICS / RADIOLOGY RESULTS: [Reviewed] PLAN NEURO: Minimize central acting medications as possible. Maintain fall precautions, adequate lighting during the day PULMONARY: Supplemental 02 as needed. Maintain aspiration precautions at all times CARDIOVASCULAR: Follow hemodynamics. Vital signs per facility protocol GI & NUTRITION: Continue with nutritional support. Continue stool softeners and laxatives as needed. KIDNEYS & ELECTROLYTES: Strict monitoring of intake, output and overall fluid balance. Avoid nephrotoxic medications to the extent possible. Medications to be dosed according to renal function. Monitor electrolytes and replace as needed ENDOCRINE: Maintain blood glucose between 100-180 at all times. Hypoglycemia protocol in place INFECTIOUS DISEASE: Trend temperature, WBC and procalcitonin level Follow cultures, deescalate antibiotics as soon as possible. Panculture if new onset fever ONCOLOGY/HEMATOLOGY/COAGULATION: Monitor for s/s of bleeding Monitor hemoglobin, coagulation studies as needed SKIN: Pressure ulcer prevention per facility protocol Specialty mattress ORTHO/REHAB: Continue PT/OT Prophylaxis: Continue GI and DVT prophylaxis Code Status: Full Resuscitation Disposition: TBD Other: Total patient care time exceeds 55 minutes excluding all procedures. MACRINA CHANDLER Sep 10, 2024 19:27
[2024-09-10 20:00] VITALS: BP 124/57; PULSE 70; RESP 18; TEMP 98
[2024-09-10] MEDS: ceFAZolin SODIUM 1 GM VIAL IVPB SCH (20:12)
[2024-09-10 20:15] VITALS: BP 134/87; PULSE 92; RESP 20; TEMP 98.3
[2024-09-11 05:44] LABS: BASOPHILS # (AUTO) 0.02 K/uL (0.00-0.20); BASOPHILS % (AUTO) 0.2 % (0.0-5.0); EOSINOPHILS # (AUTO) 0.14 K/uL (0.00-0.70); EOSINOPHILS % (AUTO) 1.1 % (0.0-8.0); HEMATOCRIT 27.5 % (42-54); LYMPHOCYTES # (AUTO) 0.6 K/uL (1.0-4.8); LYMPHOCYTES % (AUTO) 4.5 % (21.0-51.0); MEAN CORPUSCULAR HEMOGLOBIN 26.1 pg (27.0-33.0); MEAN CORPUSCULAR HGB CONC 31.3 g/dL (32.0-36.0); MEAN CORPUSCULAR VOLUME 83.6 fL (79-99); MONOCYTES # (AUTO) 1.1 K/uL (0.1-1.0); MONOCYTES % (AUTO) 8.7 % (3.0-13.0); NEUTROPHILS # (AUTO) 10.6 K/uL (1.8-7.7); NEUTROPHILS % (AUTO) 83.9 % (40.0-77.0); NUCLEATED RED BLOOD CELLS 0.2 % (0.0-0.19); PLATELET COUNT (AUTO) 524 K/uL (130-400); RED BLOOD CELL COUNT(AUTO) 3.29 MIL/uL (4.50-6.20); RED CELL DISTRIBUTION WIDTH 17.6 % (11.0-15.5); WHITE BLOOD COUNT (AUTO) 12.6 K/uL (4.8-10.8)
[2024-09-11 06:19] LABS: ALBUMIN 1.6 g/dL (3.5-5.0); BILIRUBIN,TOTAL 0.6 mg/dL (0.2-1.0); CREATININE 1.7 mg/dL (0.5-1.3); POTASSIUM 3.4 mmol/L (3.5-5.1); TOTAL PROTEIN, SERUM 5.4 g/dL (6.0-8.3)
[2024-09-11 08:00] VITALS: BP 125/42; PULSE 71; RESP 18; TEMP 97.6
[2024-09-11 08:53] VITALS: O2SAT 98
--- NOTE | 2024-09-11 10:56 | HMCIMG ---
ABD 1VW REASON: ABD PAIN FINDINGS: Single image of the abdomen was obtained. Exam is suboptimal due to patient's body habitus. Bowel gas pattern is normal. Bones and soft tissues appear unremarkable. There are no abnormal calcifications. There is no evidence of foreign body. IMPRESSION: 1. No acute finding.
[2024-09-11] MEDS: HYDROcodone/APAP 5/325 1 TAB TABLET PO PRN (13:21)
[2024-09-11] MEDS ORDERED: HYDROcodone/APAP 5/325 1 TAB TABLET PO PRN (15:30)
[2024-09-11 20:00] VITALS: BP 148/61; PULSE 71; RESP 18; TEMP 97.8; O2SAT 100
--- NOTE | 2024-09-11 20:04 | NUR ---
CM NOTE MET WITH PTS' AND discussed snf level of care orders for rehab and iv antibiotics, choice letter obtained for snf [facility]. referral sent to [facility] . pending evaluation.
[2024-09-11] MEDS: SPIRONOLACTONE 25 MG TAB PO SCH (20:11)
--- NOTE | 2024-09-11 20:11 | NUR ---
Pt. refused wound care to lower extremities @ this time, states is having pain and would like to get some rest.
--- NOTE | 2024-09-11 20:35 | PN ---
[facility] PROGRESS NOTE Date Patient Seen: Sep 11, 2024 Time of Visit: 20:35 Supervising Physician: [Dr. Vergara] Primary Care Physician: Dr. Weinberg Outpatient Specialists: [ ] Inpatient Consults: [ ] PROBLEM LIST: Severe sepsis without septic shock, improved POA Acute hypoxic respiratory failure, secondary to below POA Acute on chronic diastolic heart failure, EF of 55-60% Gram positive bacteremia, strep agalactiae group B positive on blood culture Acute gastroenteritis, pending stool studies POA Acute complicated cystitis, proteus vulgaris, POA Acute kidney injury, likely prerenal 2/2 hypovolemia, creatinine level of 1.8 on admission Chronic lymphedema, POA Bilateral lower extremity cellulitis, wound care following POA Hyponatremia, POA NSTEMI, POA Morbid obesity, POA PLAN: DC zyvox and rocephin Continue cefazolin to complete X 14 days Pending stool studies Monitor volume status and creatinine Repeat blood culture negative Repeat labs in AM Wound care consult Venous doppler negative Echocardiogram reviewed Avoid nephrotoxic agents Renally dose all medications Monitor I&O Continue O2 therapy as needed, wean off as tolerated Keep head of bed above 30 Incentive spirometry DuoNeb q.6 hours Mucomyst b.i.d. Start PT Start CPAP, patient refused INTERVAL HISTORY: [This is a 79-year-old male with a history of chronic bilateral lymphedema who presented to the ED for evaluation of watery diarrhea and weakness associated with mild abdominal discomfort x2 days prior to arrival. Also reported decreased appetite, no nausea or vomiting on admission. He was treated with Zosyn, vancomycin, IV fluids with 3L NS, and Toradol. His labs on admission revealed leukocytosis with WBC of , hyponatremia at 133, elevated creatinine of 1.8 As well as elevated lactic acid at 3.3. Had mildly elevated liver enzymes, otherwise unremarkable with a bilirubin of 1.1. His CXR revealed bilateral pulmonary infiltrates. His CTA of the chest reveals mild bilateral ground-glass opacities with minimal right-sided pleural effusion as well as trivial left- sided pleural effusion. Negative for pulmonary embolism. His CT of the abdomen and pelvis revealed diverticulosis without diverticulitis, mild constipation and diffuse soft tissue anasarca. Blood pressure today is 115/85 with a heart rate of 74, afebrile. Patient continues with supplemental oxygen at 2 L NC. He did have low-grade temperature at 99 F last night, no fever. WBC today remain elevated at 18.3, electrolyte derangement improved, creatinine remains elevated at 1.1. Lactic acid is improved to 2.2. Patient also had mildly elevated troponin at 1:37 a.m., consistent with NSTEMI. His blood cultures are showing Gram-positive cocci in chains, pending final results. His urine cultures growing 10-50 K CFUs, pending final report. Procalcitonin was elevated at 1.25, ABG shows hypoxia with PO2 of 45. He is pending an echocardiogram.] 09/07 blood pressure is 152/65 with a heart rate of 72, afebrile. Patient remains hypoxic on 3 L NC. He has 500 mL documented urine output overnight. Continues on torsemide and metolazone. CBC shows improved WBC to 13, hemoglobin 8.6, platelets 374. BNP shows hyponatremia at 133, persistently elevated creatinine of 1.9, has not worsened. COVID and flu were negative. Initial blood cultures are positive 2/2 Gram-positive cocci in chains, pending susceptibility. Repeat blood cultures are negative. His urine culture is positive for Gram-negative rods, pending sensitivity. BNP is 526 and TSH is 1.96. He had an episode of atrial fibrillation with a heart rate of 75 overnight. An EKG was ordered, and confirmed atrial fibrillation with PVCs versus aberrancy, and a right bundle-branch block. No prior EKG available for comparison. His echocardiogram shows an EF of 55-60%, stage II diastolic dysfunction and mild aortic and mitral valve regurgitation. Venous Doppler was negative for DVT bilaterally. Pending wound care eval. His diarrhea has resolved, no bowel movement today. 09/08 Patient is growing strep agalactiae group B on blood culture. Repeat blood culture is negative. He has about 700ml of urine output overnight. Creatinine stable at 1.9. Patient is recommended for home health for continued IV antibiotics. He is weak and continues with mild respiratory distress. Will order PT for ambulation and CPAP at night. CXR today is unremarkable. 09/09 blood pressure is 123/70 with a heart rate of 75, afebrile. Patient continues on supplemental oxygen at 3 L NC. Has diuresed very little with 250 mL overnight. Continues with significant bilateral lower extremity swelling which is chronic lymphedema. Patient will need outpatient IV antibiotics to treat bacteremia and UTI. He has a sacral ulcer, pending wound care for eval as well as wound to bilateral lower extremities. He continues on metolazone 10 mg b.i.d. and torsemide 20 mg daily. Patient is growing Proteus vulgaris on urine culture which is sensitive to Rocephin. Repeat CXR is unremarkable. Patient and are agreeable to SNF. He refused to use CPAP at night. 09/10 Patient has diuresed significantly with 3350ml of urine output overnight. He is documented on room air but is still using supplemental oxygen upon visit. He states his breathing is improved. He has been working with PT. Stool studies not resulted yet. WBCs remain elevated at 14. Will adjust antibiotics. Patient is pending SNF for IV antibiotics. 09/11 Patient continues with weakness. His KUB is unremarkable, has had a bowel movement. He has diuresed 500ml overnight. Creatinine is 1.7 today. He continues on supplemental oxygen with 3L. No fever. Has been working with physical therapy. Continues with wound care. Pending SNF for continued IV antibiotics. REVIEW OF SYSTEMS: 12 point ROS reviewed with patient. Pertinent positives mentioned above. Otherwise negative. PHYSICAL EXAM: GENERAL: alert, weak, awake oriented x 3 HEENT: EOMI, Sclera non icteric, moist mucosa NECK: Supple, no JVD, trachea midline LUNGS: Diminished bibasilar area HEART: Regular rate and rhythm. Normal S1 and S2, without murmurs ABD: Distended abdomen with audible bowel sounds EXT: Edematous bilateral lower extremity with elastic bandage on bilateral lower extremity with dry drainage noted NEURO: Alert and oriented to person, follows commands Vital Signs (last 8hr) Date Time Temp Pulse Resp B/P (MAP) Pulse Ox O2 Delivery O2 Flow Rate FiO2 09/11/24 20:00 97.9 71 18 148/61 100 Nasal Cannula 3.0 LABS: Hematology Labs: Test 09/11/24 05:20 Range/Units White Blood Count 12.6 H 4.8-10.8 K/uL Red Blood Count 3.29 L 4.50-6.20 MIL/uL Hemoglobin 8.6 L 14.0-18.0 g/dL Hematocrit 27.5 L 42-54 % Mean Corpuscular Volume 83.6 79-99 fL Mean Corpuscular Hemoglobin 26.1 L 27.0-33.0 pg Mean Corpuscular Hemoglobin Concent 31.3 L 32.0-36.0 g/dL Red Cell Distribution Width 17.6 H 11.0-15.5 % Platelet Count 524 H 130-400 K/uL Mean Platelet Volume 9.3 7.5-10.5 fL Immature Granulocyte % (Auto) 1.6 H 0-1 % Neutrophils (%) (Auto) 83.9 H 40.0-77.0 % Lymphocytes (%) (Auto) 4.5 L 21.0-51.0 % Monocytes (%) (Auto) 8.7 3.0-13.0 % Eosinophils (%) (Auto) 1.1 0.0-8.0 % Basophils (%) (Auto) 0.2 0.0-5.0 % Neutrophils # (Auto) 10.6 H 1.8-7.7 K/uL Lymphocytes # (Auto) 0.6 L 1.0-4.8 K/uL Monocytes # (Auto) 1.1 H 0.1-1.0 K/uL Eosinophils # (Auto) 0.14 0.00-0.70 K/uL Basophils # (Auto) 0.02 0.00-0.20 K/uL Absolute Immature Granulocyte (auto 0.20 0-1 K/uL Nucleated Red Blood Cells 0.2 H 0.0-0.19 % Chemistry Labs: Test 09/11/24 20:01 09/11/24 05:20 Range/Units Whole Blood Glucose 129 H 70-110 MG/DL Sodium Level 134 L 136-145 mmol/L Potassium Level 3.4 L 3.5-5.1 mmol/L Chloride Level 95 L 101-111 mmol/L Carbon Dioxide Level 34 H 21-32 mmol/L Blood Urea Nitrogen 70 H 7-18 mg/dL Creatinine 1.7 H 0.5-1.3 mg/dL Glomerular Filtration Rate Calc 41 >90 mL/min Random Glucose 121 H 70-105 mg/dL Total Calcium 8.0 L 8.5-10.1 mg/dL Total Bilirubin 0.6 0.2-1.0 mg/dL Aspartate Amino Transf (AST/SGOT) 20 10-37 U/L Alanine Aminotransferase (ALT/SGPT) 15 12-78 U/L Alkaline Phosphatase 141 H 50-136 U/L Total Protein 5.4 L 6.0-8.3 g/dL Albumin 1.6 L 3.5-5.0 g/dL DIAGNOSTICS / RADIOLOGY RESULTS: ABD 1VW REASON: ABD PAIN FINDINGS: Single image of the abdomen was obtained. Exam is suboptimal due to patient's body habitus. Bowel gas pattern is normal. Bones and soft tissues appear unremarkable. There are no abnormal calcifications. There is no evidence of foreign body. IMPRESSION: 1. No acute finding. PLAN NEURO: Minimize central acting medications as possible. Maintain fall precautions, adequate lighting during the day PULMONARY: Supplemental 02 as needed. Maintain aspiration precautions at all times CARDIOVASCULAR: Follow hemodynamics. Vital signs per facility protocol GI & NUTRITION: Continue with nutritional support. Continue stool softeners and laxatives as needed. KIDNEYS & ELECTROLYTES: Strict monitoring of intake, output and overall fluid balance. Avoid nephrotoxic medications to the extent possible. Medications to be dosed according to renal function. Monitor electrolytes and replace as needed ENDOCRINE: Maintain blood glucose between 100-180 at all times. Hypoglycemia protocol in place INFECTIOUS DISEASE: Trend temperature, WBC and procalcitonin level Follow cultures, deescalate antibiotics as soon as possible. Panculture if new onset fever ONCOLOGY/HEMATOLOGY/COAGULATION: Monitor for s/s of bleeding Monitor hemoglobin, coagulation studies as needed SKIN: Pressure ulcer prevention per facility protocol Specialty mattress ORTHO/REHAB: Continue PT/OT Prophylaxis: Continue GI and DVT prophylaxis Code Status: Full Resuscitation Disposition: TBD Other: Total patient care time exceeds 35 minutes excluding all procedures. MACRINA CHANDLER Sep 11, 2024 20:35
[2024-09-12] VITALS (7 sets, daily range): BP systolic 122–140; BP diastolic 59–62; PULSE 66–72; RESP 18–25; TEMP 97.8; O2SAT 95–98
--- NOTE | 2024-09-12 06:22 | NUR ---
Pt. refuses wound care @ this time; states is very tired and wants to keep on resting.
--- NOTE | 2024-09-12 09:27 | PN ---
[facility] PROGRESS NOTE Date Patient Seen: Sep 12, 2024 Time of Visit: 09:24 Supervising Physician: [Dr. Rosas] Primary Care Physician: Dr. Weinberg Outpatient Specialists: [ ] Inpatient Consults: [ ] PROBLEM LIST: Severe sepsis without septic shock, improved POA Acute hypoxic respiratory failure, secondary to below POA Acute on chronic diastolic heart failure, EF of 55-60% Gram positive bacteremia, strep agalactiae group B positive on blood culture Acute gastroenteritis, pending stool studies POA Acute complicated cystitis, proteus vulgaris, POA Acute kidney injury, likely prerenal 2/2 hypovolemia, creatinine level of 1.8 on admission Chronic lymphedema, POA Bilateral lower extremity cellulitis, wound care following POA Hyponatremia, POA NSTEMI, POA Morbid obesity, POA PLAN: DC zyvox and rocephin Continue cefazolin to complete X 14 days Pending stool studies Monitor volume status and creatinine Repeat blood culture negative Repeat labs in AM Wound care consult Venous doppler negative Echocardiogram reviewed Avoid nephrotoxic agents Renally dose all medications Monitor I&O Continue O2 therapy as needed, wean off as tolerated Keep head of bed above 30 Incentive spirometry DuoNeb q.6 hours Mucomyst b.i.d. Start PT Start CPAP, patient refused INTERVAL HISTORY: [This is a 79-year-old male with a history of chronic bilateral lymphedema who presented to the ED for evaluation of watery diarrhea and weakness associated with mild abdominal discomfort x2 days prior to arrival. Also reported decreased appetite, no nausea or vomiting on admission. He was treated with Zosyn, vancomycin, IV fluids with 3L NS, and Toradol. His labs on admission revealed leukocytosis with WBC of , hyponatremia at 133, elevated creatinine of 1.8 As well as elevated lactic acid at 3.3. Had mildly elevated liver enzymes, otherwise unremarkable with a bilirubin of 1.1. His CXR revealed bilateral pulmonary infiltrates. His CTA of the chest reveals mild bilateral ground-glass opacities with minimal right-sided pleural effusion as well as trivial left- sided pleural effusion. Negative for pulmonary embolism. His CT of the abdomen and pelvis revealed diverticulosis without diverticulitis, mild constipation and diffuse soft tissue anasarca. Blood pressure today is 115/85 with a heart rate of 74, afebrile. Patient continues with supplemental oxygen at 2 L NC. He did have low-grade temperature at 99 F last night, no fever. WBC today remain elevated at 18.3, electrolyte derangement improved, creatinine remains elevated at 1.1. Lactic acid is improved to 2.2. Patient also had mildly elevated troponin at 1:37 a.m., consistent with NSTEMI. His blood cultures are showing Gram-positive cocci in chains, pending final results. His urine cultures growing 10-50 K CFUs, pending final report. Procalcitonin was elevated at 1.25, ABG shows hypoxia with PO2 of 45. He is pending an echocardiogram.] 09/07 blood pressure is 152/65 with a heart rate of 72, afebrile. Patient remains hypoxic on 3 L NC. He has 500 mL documented urine output overnight. Continues on torsemide and metolazone. CBC shows improved WBC to 13, hemoglobin 8.6, platelets 374. BNP shows hyponatremia at 133, persistently elevated creatinine of 1.9, has not worsened. COVID and flu were negative. Initial blood cultures are positive 2/2 Gram-positive cocci in chains, pending susceptibility. Repeat blood cultures are negative. His urine culture is positive for Gram-negative rods, pending sensitivity. BNP is 526 and TSH is 1.96. He had an episode of atrial fibrillation with a heart rate of 75 overnight. An EKG was ordered, and confirmed atrial fibrillation with PVCs versus aberrancy, and a right bundle-branch block. No prior EKG available for comparison. His echocardiogram shows an EF of 55-60%, stage II diastolic dysfunction and mild aortic and mitral valve regurgitation. Venous Doppler was negative for DVT bilaterally. Pending wound care eval. His diarrhea has resolved, no bowel movement today. 09/08 Patient is growing strep agalactiae group B on blood culture. Repeat blood culture is negative. He has about 700ml of urine output overnight. Creatinine stable at 1.9. Patient is recommended for home health for continued IV antibiotics. He is weak and continues with mild respiratory distress. Will order PT for ambulation and CPAP at night. CXR today is unremarkable. 09/09 blood pressure is 123/70 with a heart rate of 75, afebrile. Patient continues on supplemental oxygen at 3 L NC. Has diuresed very little with 250 mL overnight. Continues with significant bilateral lower extremity swelling which is chronic lymphedema. Patient will need outpatient IV antibiotics to treat bacteremia and UTI. He has a sacral ulcer, pending wound care for eval as well as wound to bilateral lower extremities. He continues on metolazone 10 mg b.i.d. and torsemide 20 mg daily. Patient is growing Proteus vulgaris on urine culture which is sensitive to Rocephin. Repeat CXR is unremarkable. Patient and are agreeable to SNF. He refused to use CPAP at night. 09/10 Patient has diuresed significantly with 3350ml of urine output overnight. He is documented on room air but is still using supplemental oxygen upon visit. He states his breathing is improved. He has been working with PT. Stool studies not resulted yet. WBCs remain elevated at 14. Will adjust antibiotics. Patient is pending SNF for IV antibiotics. 09/11 Patient continues with weakness. His KUB is unremarkable, has had a bowel movement. He has diuresed 500ml overnight. Creatinine is 1.7 today. He continues on supplemental oxygen with 3L. No fever. Has been working with physical therapy. Continues with wound care. Pending SNF for continued IV antibiotics. 09/12 patient was initiated on spironolactone 25 mg b.i.d. yesterday, has diures ed about 2000 mL of urine output overnight. Per nursing note, patient has been refusing wound care due to feeling tired. WBCs most recently at two, creatinine at 1.7. Patient continues on cefazolin for bacteremia and acute complicated cystitis. Pending SNF for physical therapy and continued IV antibiotics. HE did work with physical therapy today as tolerated. An ABG was ordered and abnormal. His swelling to bilateral lower extremities is significantly decreased. REVIEW OF SYSTEMS: 12 point ROS reviewed with patient. Pertinent positives mentioned above. Otherwise negative. PHYSICAL EXAM: GENERAL: alert, weak, awake oriented x 3 HEENT: EOMI, Sclera non icteric, moist mucosa NECK: Supple, no JVD, trachea midline LUNGS: Diminished bibasilar area HEART: Regular rate and rhythm. Normal S1 and S2, without murmurs ABD: Distended abdomen with audible bowel sounds EXT: Edematous bilateral lower extremity with elastic bandage on bilateral lower extremity with dry drainage noted NEURO: Alert and oriented to person, follows commands LABS: Hematology Labs: Test 09/11/24 05:20 Range/Units White Blood Count 12.6 H 4.8-10.8 K/uL Red Blood Count 3.29 L 4.50-6.20 MIL/uL Hemoglobin 8.6 L 14.0-18.0 g/dL Hematocrit 27.5 L 42-54 % Mean Corpuscular Volume 83.6 79-99 fL Mean Corpuscular Hemoglobin 26.1 L 27.0-33.0 pg Mean Corpuscular Hemoglobin Concent 31.3 L 32.0-36.0 g/dL Red Cell Distribution Width 17.6 H 11.0-15.5 % Platelet Count 524 H 130-400 K/uL Mean Platelet Volume 9.3 7.5-10.5 fL Immature Granulocyte % (Auto) 1.6 H 0-1 % Neutrophils (%) (Auto) 83.9 H 40.0-77.0 % Lymphocytes (%) (Auto) 4.5 L 21.0-51.0 % Monocytes (%) (Auto) 8.7 3.0-13.0 % Eosinophils (%) (Auto) 1.1 0.0-8.0 % Basophils (%) (Auto) 0.2 0.0-5.0 % Neutrophils # (Auto) 10.6 H 1.8-7.7 K/uL Lymphocytes # (Auto) 0.6 L 1.0-4.8 K/uL Monocytes # (Auto) 1.1 H 0.1-1.0 K/uL Eosinophils # (Auto) 0.14 0.00-0.70 K/uL Basophils # (Auto) 0.02 0.00-0.20 K/uL Absolute Immature Granulocyte (auto 0.20 0-1 K/uL Nucleated Red Blood Cells 0.2 H 0.0-0.19 % Chemistry Labs: Test 09/12/24 07:41 09/11/24 05:20 Range/Units Whole Blood Glucose 114 H 70-110 MG/DL Sodium Level 134 L 136-145 mmol/L Potassium Level 3.4 L 3.5-5.1 mmol/L Chloride Level 95 L 101-111 mmol/L Carbon Dioxide Level 34 H 21-32 mmol/L Blood Urea Nitrogen 70 H 7-18 mg/dL Creatinine 1.7 H 0.5-1.3 mg/dL Glomerular Filtration Rate Calc 41 >90 mL/min Random Glucose 121 H 70-105 mg/dL Total Calcium 8.0 L 8.5-10.1 mg/dL Total Bilirubin 0.6 0.2-1.0 mg/dL Aspartate Amino Transf (AST/SGOT) 20 10-37 U/L Alanine Aminotransferase (ALT/SGPT) 15 12-78 U/L Alkaline Phosphatase 141 H 50-136 U/L Total Protein 5.4 L 6.0-8.3 g/dL Albumin 1.6 L 3.5-5.0 g/dL DIAGNOSTICS / RADIOLOGY RESULTS: [ ] PLAN NEURO: Minimize central acting medications as possible. Maintain fall precautions, adequate lighting during the day PULMONARY: Supplemental 02 as needed. Maintain aspiration precautions at all times CARDIOVASCULAR: Follow hemodynamics. Vital signs per facility protocol GI & NUTRITION: Continue with nutritional support. Continue stool softeners and laxatives as needed. KIDNEYS & ELECTROLYTES: Strict monitoring of intake, output and overall fluid balance. Avoid nephrotoxic medications to the extent possible. Medications to be dosed according to renal function. Monitor electrolytes and replace as needed ENDOCRINE: Maintain blood glucose between 100-180 at all times. Hypoglycemia protocol in place INFECTIOUS DISEASE: Trend temperature, WBC and procalcitonin level Follow cultures, deescalate antibiotics as soon as possible. Panculture if new onset fever ONCOLOGY/HEMATOLOGY/COAGULATION: Monitor for s/s of bleeding Monitor hemoglobin, coagulation studies as needed SKIN: Pressure ulcer prevention per facility protocol Specialty mattress ORTHO/REHAB: Continue PT/OT Prophylaxis: Continue GI and DVT prophylaxis Code Status: Full Resuscitation Disposition: TBD Other: Total patient care time exceeds 35 minutes excluding all procedures. MACRINA CHANDLER Sep 12, 2024 09:27
[2024-09-12 10:08] LABS: ABG BASE EXCESS 9.4 mmol/L (-2.0-3.0); ABG HCO3 36.8 mmol/L (21.0-28.0); ABG OXYGEN SATURATION 95.8 % (94.0-98.0); ABG PCO2 68 mmHg (35-48); ABG PH 7.351 (7.350-7.450); CARBON MONOXIDE 0.4 % (0.5-1.5); DEVICE COMMENT RR, MARY,RN; HHb 4.1; PO2, ARTERIAL BG 86.8 mmHg (83.0-108.0); VENT MODE, BG NC 3L (ROOM AIR)
[2024-09-12 12:51] LABS: INR 1.7 (0.85-1.15); PROTHROMBIN TIME 17.7 SEC (9.6-11.6)
--- NOTE | 2024-09-12 18:31 | NUR ---
WOUND CARE PATIENT REFUSED WOUND CARE TO HIS RIGHT CALF. I DID PERFORM WOUND CARE TO HIS LEFT CALF. WOUND CARE WAS PERFORMED TO THE SACRUM TWICE TODAY. PATIENT WAS TURNED TODAY USING THE WEDGE. SPECIALTY AIR MATTRESS WAS PLACED YESTERDAY.
--- NOTE | 2024-09-12 20:18 | NUR ---
Attempted to perform wound care to (R) Lower Extremity @ this time; both pt. & spouse refusing
[2024-09-13 01:10] VITALS: RESP 26; O2SAT 98
--- NOTE | 2024-09-13 03:00 | NUR ---
Pt. requesting for CPAP Machine to be turned off @ this time, refusing CPAP;states cannot sleep & would like to speak with M.D. regarding the need for CPAP.
[2024-09-13 03:11] VITALS: PULSE 86; RESP 22; O2SAT 98
[2024-09-13 04:16] LABS: BASOPHILS # (AUTO) 0.02 K/uL (0.00-0.20); BASOPHILS % (AUTO) 0.2 % (0.0-5.0); EOSINOPHILS # (AUTO) 0.18 K/uL (0.00-0.70); EOSINOPHILS % (AUTO) 1.6 % (0.0-8.0); HEMATOCRIT 28.4 % (42-54); IMMATURE GRANULOCYTE ABSOLUTE 0.12 K/uL (0-1); LYMPHOCYTES # (AUTO) 0.6 K/uL (1.0-4.8); LYMPHOCYTES % (AUTO) 5.1 % (21.0-51.0); MEAN CORPUSCULAR HEMOGLOBIN 25.4 pg (27.0-33.0); MEAN CORPUSCULAR HGB CONC 30.6 g/dL (32.0-36.0); MONOCYTES # (AUTO) 0.9 K/uL (0.1-1.0); MONOCYTES % (AUTO) 7.7 % (3.0-13.0); NEUTROPHILS # (AUTO) 9.7 K/uL (1.8-7.7); NEUTROPHILS % (AUTO) 84.4 % (40.0-77.0); NUCLEATED RED BLOOD CELLS 0.2 % (0.0-0.19); PLATELET COUNT (AUTO) 551 K/uL (130-400); RED BLOOD CELL COUNT(AUTO) 3.42 MIL/uL (4.50-6.20); RED CELL DISTRIBUTION WIDTH 17.9 % (11.0-15.5); WHITE BLOOD COUNT (AUTO) 11.5 K/uL (4.8-10.8)
[2024-09-13 04:26] LABS: CREATININE 1.5 mg/dL (0.5-1.3); POTASSIUM 3.2 mmol/L (3.5-5.1)
[2024-09-13 06:51] VITALS: PULSE 70; RESP 20; O2SAT 98
[2024-09-13 08:08] VITALS: BP 146/52; PULSE 70; RESP 22; TEMP 97.6
[2024-09-13 09:29] VITALS: O2SAT 98
--- NOTE | 2024-09-13 10:05 | PN ---
[facility] PROGRESS NOTE Date Patient Seen: Sep 13, 2024 Time of Visit: 10:01 Supervising Physician: [Dr. Rosas] Primary Care Physician: Dr. Weinberg Outpatient Specialists: [ ] Inpatient Consults: [ ] PROBLEM LIST: Severe sepsis without septic shock, improved POA Acute hypoxic respiratory failure, secondary to below POA Acute on chronic diastolic heart failure, EF of 55-60% Gram positive bacteremia, strep agalactiae group B positive on blood culture Acute gastroenteritis, pending stool studies POA Acute complicated cystitis, proteus vulgaris, POA Acute kidney injury, likely prerenal 2/2 hypovolemia, creatinine level of 1.8 on admission Metabolic alkalosis, likely contraction alkalosis Chronic lymphedema, POA Bilateral lower extremity cellulitis, wound care following POA Hyponatremia, POA NSTEMI, POA Morbid obesity, POA PLAN: DC zyvox and rocephin Continue cefazolin to complete X 14 days Pending stool studies Monitor volume status and creatinine Repeat blood culture negative Repeat labs in AM Wound care consult Venous doppler negative Echocardiogram reviewed Avoid nephrotoxic agents Renally dose all medications Monitor I&O Continue O2 therapy as needed, wean off as tolerated Keep head of bed above 30 Incentive spirometry DuoNeb q.6 hours Mucomyst b.i.d. Start PT Start CPAP, patient refused INTERVAL HISTORY: [This is a 79-year-old male with a history of chronic bilateral lymphedema who presented to the ED for evaluation of watery diarrhea and weakness associated with mild abdominal discomfort x2 days prior to arrival. Also reported decreased appetite, no nausea or vomiting on admission. He was treated with Zosyn, vancomycin, IV fluids with 3L NS, and Toradol. His labs on admission revealed leukocytosis with WBC of , hyponatremia at 133, elevated creatinine of 1.8 As well as elevated lactic acid at 3.3. Had mildly elevated liver enzymes, otherwise unremarkable with a bilirubin of 1.1. His CXR revealed bilateral pulmonary infiltrates. His CTA of the chest reveals mild bilateral ground-glass opacities with minimal right-sided pleural effusion as well as trivial left- sided pleural effusion. Negative for pulmonary embolism. His CT of the abdomen and pelvis revealed diverticulosis without diverticulitis, mild constipation and diffuse soft tissue anasarca. Blood pressure today is 115/85 with a heart rate of 74, afebrile. Patient continues with supplemental oxygen at 2 L NC. He did have low-grade temperature at 99 F last night, no fever. WBC today remain elevated at 18.3, electrolyte derangement improved, creatinine remains elevated at 1.1. Lactic acid is improved to 2.2. Patient also had mildly elevated troponin at 1:37 a.m., consistent with NSTEMI. His blood cultures are showing Gram-positive cocci in chains, pending final results. His urine cultures growing 10-50 K CFUs, pending final report. Procalcitonin was elevated at 1.25, ABG shows hypoxia with PO2 of 45. He is pending an echocardiogram.] 09/07 blood pressure is 152/65 with a heart rate of 72, afebrile. Patient remains hypoxic on 3 L NC. He has 500 mL documented urine output overnight. Continues on torsemide and metolazone. CBC shows improved WBC to 13, hemoglobin 8.6, platelets 374. BNP shows hyponatremia at 133, persistently elevated creatinine of 1.9, has not worsened. COVID and flu were negative. Initial blood cultures are positive 2/2 Gram-positive cocci in chains, pending susceptibility. Repeat blood cultures are negative. His urine culture is positive for Gram-negative rods, pending sensitivity. BNP is 526 and TSH is 1.96. He had an episode of atrial fibrillation with a heart rate of 75 overnight. An EKG was ordered, and confirmed atrial fibrillation with PVCs versus aberrancy, and a right bundle-branch block. No prior EKG available for comparison. His echocardiogram shows an EF of 55-60%, stage II diastolic dysfunction and mild aortic and mitral valve regurgitation. Venous Doppler was negative for DVT bilaterally. Pending wound care eval. His diarrhea has resolved, no bowel movement today. 09/08 Patient is growing strep agalactiae group B on blood culture. Repeat blood culture is negative. He has about 700ml of urine output overnight. Creatinine stable at 1.9. Patient is recommended for home health for continued IV antibiotics. He is weak and continues with mild respiratory distress. Will order PT for ambulation and CPAP at night. CXR today is unremarkable. 09/09 blood pressure is 123/70 with a heart rate of 75, afebrile. Patient continues on supplemental oxygen at 3 L NC. Has diuresed very little with 250 mL overnight. Continues with significant bilateral lower extremity swelling which is chronic lymphedema. Patient will need outpatient IV antibiotics to treat bacteremia and UTI. He has a sacral ulcer, pending wound care for eval as well as wound to bilateral lower extremities. He continues on metolazone 10 mg b.i.d. and torsemide 20 mg daily. Patient is growing Proteus vulgaris on urine culture which is sensitive to Rocephin. Repeat CXR is unremarkable. Patient and are agreeable to SNF. He refused to use CPAP at night. 09/10 Patient has diuresed significantly with 3350ml of urine output overnight. He is documented on room air but is still using supplemental oxygen upon visit. He states his breathing is improved. He has been working with PT. Stool studies not resulted yet. WBCs remain elevated at 14. Will adjust antibiotics. Patient is pending SNF for IV antibiotics. 09/11 Patient continues with weakness. His KUB is unremarkable, has had a bowel movement. He has diuresed 500ml overnight. Creatinine is 1.7 today. He continues on supplemental oxygen with 3L. No fever. Has been working with physical therapy. Continues with wound care. Pending SNF for continued IV antibiotics. 09/12 patient was initiated on spironolactone 25 mg b.i.d. yesterday, has diuresed about 2000 mL of urine output overnight. Per nursing note, patient has been refusing wound care due to feeling tired. WBCs most recently at two, creatinine at 1.7. Patient continues on cefazolin for bacteremia and acute complicated cystitis. Pending SNF for physical therapy and continued IV antibiotics. HE did work with physical therapy today as tolerated. An ABG was ordered and abnormal. His swelling to bilateral lower extremities is significantly decreased. 09/13 patient has significantly decreased swelling to bilateral lower extremities. Continues with diuresis with 3100 mL of urine output overnight. Labs today show a bicarb of43 and a serum, consistent with contraction alkalosis. Per nursing report, patient has been refusing wound care and CPAP. His CBC shows persistent leukocytosis currently at 11. His ABG yesterday shows hypercapnia with a CO2 of 68, patient has refused BiPAP. He continues on antibiotics for bacteremia and complicated cystitis. REVIEW OF SYSTEMS: 12 point ROS reviewed with patient. Pertinent positives mentioned above. Oth erwise negative. PHYSICAL EXAM: GENERAL: alert, weak, awake oriented x 3 HEENT: EOMI, Sclera non icteric, moist mucosa NECK: Supple, no JVD, trachea midline LUNGS: Diminished bibasilar area HEART: Regular rate and rhythm. Normal S1 and S2, without murmurs ABD: Distended abdomen with audible bowel sounds EXT: Edematous bilateral lower extremity with elastic bandage on bilateral lower extremity with dry drainage noted NEURO: Alert and oriented to person, follows commands Vital Signs (last 8hr) Date Time Temp Pulse Resp B/P (MAP) Pulse Ox O2 Delivery O2 Flow Rate FiO2 09/13/24 08:08 97.5 70 22 146/52 98 3.0 09/13/24 06:51 70 20 N/Cannula Low lpm 3.0 32 09/13/24 03:11 86 22 LABS: Hematology Labs: Test 09/13/24 04:07 Range/Units White Blood Count 11.5 H 4.8-10.8 K/uL Red Blood Count 3.42 L 4.50-6.20 MIL/uL Hemoglobin 8.7 L 14.0-18.0 g/dL Hematocrit 28.4 L 42-54 % Mean Corpuscular Volume 83.0 79-99 fL Mean Corpuscular Hemoglobin 25.4 L 27.0-33.0 pg Mean Corpuscular Hemoglobin Concent 30.6 L 32.0-36.0 g/dL Red Cell Distribution Width 17.9 H 11.0-15.5 % Platelet Count 551 H 130-400 K/uL Mean Platelet Volume 8.8 7.5-10.5 fL Immature Granulocyte % (Auto) 1.0 0-1 % Neutrophils (%) (Auto) 84.4 H 40.0-77.0 % Lymphocytes (%) (Auto) 5.1 L 21.0-51.0 % Monocytes (%) (Auto) 7.7 3.0-13.0 % Eosinophils (%) (Auto) 1.6 0.0-8.0 % Basophils (%) (Auto) 0.2 0.0-5.0 % Neutrophils # (Auto) 9.7 H 1.8-7.7 K/uL Lymphocytes # (Auto) 0.6 L 1.0-4.8 K/uL Monocytes # (Auto) 0.9 0.1-1.0 K/uL Eosinophils # (Auto) 0.18 0.00-0.70 K/uL Basophils # (Auto) 0.02 0.00-0.20 K/uL Absolute Immature Granulocyte (auto 0.12 0-1 K/uL Nucleated Red Blood Cells 0.2 H 0.0-0.19 % White Cell Morphology Comment See comments Red Blood Cell Morphology See comments Chemistry Labs: Test 09/13/24 08:00 09/13/24 04:07 Range/Units Whole Blood Glucose 113 H 70-110 MG/DL Sodium Level 139 136-145 mmol/L Potassium Level 3.2 L 3.5-5.1 mmol/L Chloride Level 94 L 101-111 mmol/L Carbon Dioxide Level 43 *H 21-32 mmol/L Blood Urea Nitrogen 67 H 7-18 mg/dL Creatinine 1.5 H 0.5-1.3 mg/dL Glomerular Filtration Rate Calc 47 >90 mL/min Random Glucose 107 H 70-105 mg/dL Total Calcium 8.1 L 8.5-10.1 mg/dL Coagulation Labs: Test 09/12/24 12:33 Range/Units Prothrombin Time 17.7 H 9.6-11.6 SEC Prothromb Time International Ratio 1.70 H 0.85-1.15 DIAGNOSTICS / RADIOLOGY RESULTS: [Reviewed] PLAN NEURO: Minimize central acting medications as possible. Maintain fall precautions, adequate lighting during the day PULMONARY: Supplemental 02 as needed. Maintain aspiration precautions at all times CARDIOVASCULAR: Follow hemodynamics. Vital signs per facility protocol GI & NUTRITION: Continue with nutritional support. Continue stool softeners and laxatives as needed. KIDNEYS & ELECTROLYTES: Strict monitoring of intake, output and overall fluid balance. Avoid nephrotoxic medications to the extent possible. Medications to be dosed according to renal function. Monitor electrolytes and replace as needed ENDOCRINE: Maintain blood glucose between 100-180 at all times. Hypoglycemia protocol in place INFECTIOUS DISEASE: Trend temperature, WBC and procalcitonin level Follow cultures, deescalate antibiotics as soon as possible. Panculture if new onset fever ONCOLOGY/HEMATOLOGY/COAGULATION: Monitor for s/s of bleeding Monitor hemoglobin, coagulation studies as needed SKIN: Pressure ulcer prevention per facility protocol Specialty mattress ORTHO/REHAB: Continue PT/OT Prophylaxis: Continue GI and DVT prophylaxis Code Status: Full Resuscitation Disposition: TBD Other: Total patient care time exceeds 35 minutes excluding all procedures. MACRINA CHANDLER Sep 13, 2024 10:05
[2024-09-13 20:00] VITALS: BP 149/50; PULSE 66; RESP 20; TEMP 97.6; O2SAT 95
[2024-09-14 06:29] LABS: CREATININE 1.4 mg/dL (0.5-1.3); POTASSIUM 3.1 mmol/L (3.5-5.1)
[2024-09-14 07:19] VITALS: RESP 20; O2SAT 98
[2024-09-14 08:45] VITALS: BP_SYST 127; BP_DIAS 60; BP_DIAS 90; PULSE 71; RESP 16; TEMP 97.9
[2024-09-14 10:31] VITALS: O2SAT 95
--- NOTE | 2024-09-14 11:18 | NUR ---
Discharge Planning: Pt. is still pending acceptance at [facility].
--- NOTE | 2024-09-14 11:30 | NUR ---
PATIENT REFUSES BLOOD GLUCOSE MONITORING. STATED HE DOES NOT WANT TO BE POKED. EDUCATED PATIENT ON THE IMPORTANCE OF MONITORING BLOOD GLUCOSE, SIGNS AND SYMPTOMS OF HYPOGLYCEMIA AND HYPERGLYCEMIA. PATIENT AND VERBALIZED UNDERSTANDING.
--- NOTE | 2024-09-14 13:17 | NUR ---
HOSPICE EDUCATION SW met with p and his and educated on hospice at home, hospice house and private [facility]. Pt not sure if he is wanting to follow thru with MD recommendation for SNF- 2wk or more of ABX or hospice. states she can not care for pt at, if he is not walking. Discussed private care givers to help her. Pt wants to think about it. Explained that hospice referral can be made at SNF or from home by contact PCP or Hospice directly. MADHURI Roque updated.
--- NOTE | 2024-09-14 15:00 | NUR ---
PERFORMED WOUND CARE TO SACRAL AREA AND BOTH LEGS FOLLOWING PHYSICIANS ORDERS. PATIENT TOLERATED WELL.
--- NOTE | 2024-09-14 15:45 | PN ---
[facility] PROGRESS NOTE Date Patient Seen: Sep 14, 2024 Time of Visit: 15:44 Supervising Physician: [Dr. Rosas] Primary Care Physician: Dr. Weinberg Outpatient Specialists: [ ] Inpatient Consults: [ ] PROBLEM LIST: Severe sepsis without septic shock, improved POA Acute hypoxic respiratory failure, secondary to below POA Acute on chronic diastolic heart failure, EF of 55-60% Gram positive bacteremia, strep agalactiae group B positive on blood culture Acute gastroenteritis, pending stool studies POA Acute complicated cystitis, proteus vulgaris, POA Acute kidney injury, likely prerenal 2/2 hypovolemia, creatinine level of 1.8 on admission Metabolic alkalosis, likely contraction alkalosis Chronic lymphedema, POA Bilateral lower extremity cellulitis, wound care following POA Hyponatremia, POA NSTEMI, POA Morbid obesity, POA PLAN: DC zyvox and rocephin Continue cefazolin to complete X 14 days Pending stool studies Monitor volume status and creatinine Repeat blood culture negative Repeat labs in AM Wound care consult Venous doppler negative Echocardiogram reviewed Avoid nephrotoxic agents Renally dose all medications Monitor I&O Continue O2 therapy as needed, wean off as tolerated Keep head of bed above 30 Incentive spirometry DuoNeb q.6 hours Mucomyst b.i.d. Start PT Start CPAP, patient refused INTERVAL HISTORY: [This is a 79-year-old male with a history of chronic bilateral lymphedema who presented to the ED for evaluation of watery diarrhea and weakness associated with mild abdominal discomfort x2 days prior to arrival. Also reported decreased appetite, no nausea or vomiting on admission. He was treated with Zosyn, vancomycin, IV fluids with 3L NS, and Toradol. His labs on admission revealed leukocytosis with WBC of , hyponatremia at 133, elevated creatinine of 1.8 As well as elevated lactic acid at 3.3. Had mildly elevated liver enzymes, otherwise unremarkable with a bilirubin of 1.1. His CXR revealed bilateral pulmonary infiltrates. His CTA of the chest reveals mild bilateral ground-glass opacities with minimal right-sided pleural effusion as well as trivial left- sided pleural effusion. Negative for pulmonary embolism. His CT of the abdomen and pelvis revealed diverticulosis without diverticulitis, mild constipation and diffuse soft tissue anasarca. Blood pressure today is 115/85 with a heart rate of 74, afebrile. Patient continues with supplemental oxygen at 2 L NC. He did have low-grade temperature at 99 F last night, no fever. WBC today remain elevated at 18.3, electrolyte derangement improved, creatinine remains elevated at 1.1. Lactic acid is improved to 2.2. Patient also had mildly elevated troponin at 1:37 a.m., consistent with NSTEMI. His blood cultures are showing Gram-positive cocci in chains, pending final results. His urine cultures growing 10-50 K CFUs, pending final report. Procalcitonin was elevated at 1.25, ABG shows hypoxia with PO2 of 45. He is pending an echocardiogram.] 09/07 blood pressure is 152/65 with a heart rate of 72, afebrile. Patient remains hypoxic on 3 L NC. He has 500 mL documented urine output overnight. Continues on torsemide and metolazone. CBC shows improved WBC to 13, hemoglobin 8.6, platelets 374. BNP shows hyponatremia at 133, persistently elevated creatinine of 1.9, has not worsened. COVID and flu were negative. Initial blood cultures are positive 2/2 Gram-positive cocci in chains, pending susceptibility. Repeat blood cultures are negative. His urine culture is positive for Gram-negative rods, pending sensitivity. BNP is 526 and TSH is 1.96. He had an episode of atrial fibrillation with a heart rate of 75 overnight. An EKG was ordered, and confirmed atrial fibrillation with PVCs versus aberrancy, and a right bundle-branch block. No prior EKG available for comparison. His echocardiogram shows an EF of 55-60%, stage II diastolic dysfunction and mild aortic and mitral valve regurgitation. Venous Doppler was negative for DVT bilaterally. Pending wound care eval. His diarrhea has resolved, no bowel movement today. 09/08 Patient is growing strep agalactiae group B on blood culture. Repeat blood culture is negative. He has about 700ml of urine output overnight. Creatinine stable at 1.9. Patient is recommended for home health for continued IV antibiotics. He is weak and continues with mild respiratory distress. Will order PT for ambulation and CPAP at night. CXR today is unremarkable. 09/09 blood pressure is 123/70 with a heart rate of 75, afebrile. Patient continues on supplemental oxygen at 3 L NC. Has diuresed very little with 250 mL overnight. Continues with significant bilateral lower extremity swelling which is chronic lymphedema. Patient will need outpatient IV antibiotics to treat bacteremia and UTI. He has a sacral ulcer, pending wound care for eval as well as wound to bilateral lower extremities. He continues on metolazone 10 mg b.i.d. and torsemide 20 mg daily. Patient is growing Proteus vulgaris on urine culture which is sensitive to Rocephin. Repeat CXR is unremarkable. Patient and are agreeable to SNF. He refused to use CPAP at night. 09/10 Patient has diuresed significantly with 3350ml of urine output overnight. He is documented on room air but is still using supplemental oxygen upon visit. He states his breathing is improved. He has been working with PT. Stool studies not resulted yet. WBCs remain elevated at 14. Will adjust antibiotics. Patient is pending SNF for IV antibiotics. 09/11 Patient continues with weakness. His KUB is unremarkable, has had a bowel movement. He has diuresed 500ml overnight. Creatinine is 1.7 today. He continues on supplemental oxygen with 3L. No fever. Has been working with physical therapy. Continues with wound care. Pending SNF for continued IV antibiotics. 09/12 patient was initiated on spironolactone 25 mg b.i.d. yesterday, has diuresed about 2000 mL of urine output overnight. Per nursing note, patient has been refusing wound care due to feeling tired. WBCs most recently at two, creatinine at 1.7. Patient continues on cefazolin for bacteremia and acute complicated cystitis. Pending SNF for physical therapy and continued IV antibiotics. HE did work with physical therapy today as tolerated. An ABG was ordered and abnormal. His swelling to bilateral lower extremities is significantly decreased. 09/13 patient has significantly decreased swelling to bilateral lower extremities. Continues with diuresis with 3100 mL of urine output overnight. Labs today show a bicarb of43 and a serum, consistent with contraction alkalosis. Per nursing report, patient has been refusing wound care and CPAP. His CBC shows persistent leukocytosis currently at 11. His ABG yesterday shows hypercapnia with a CO2 of 68, patient has refused BiPAP. He continues on antibiotics for bacteremia and complicated cystitis. 09/14 blood pressure is 127/60 with a heart rate of 71, afebrile. Patient continues on 3 L NC. He had about 1100 mL of urine output overnight with a net fluid balance of -934 mL. He continues on torsemide, metolazone and spironolactone. Patient continues with significant swelling to lower extremities but has improved remarkably since admission. His CBC is unremarkable, BNP shows improved creatinine to 1.4. Continues on IV antibiotics for UTI and bacteremia, pending SNF. Per discussion with patient at bedside, he states he is worn out and is now considering hospice. We will consult hospice nurse for evaluation. REVIEW OF SYSTEMS: 12 point ROS reviewed with patient. Pertinent positives mentioned above. Otherwise negative. PHYSICAL EXAM: GENERAL: alert, weak, awake oriented x 3 HEENT: EOMI, Sclera non icteric, moist mucosa NECK: Supple, no JVD, trachea midline LUNGS: Diminished bibasilar area HEART: Regular rate and rhythm. Normal S1 and S2, without murmurs ABD: Distended abdomen with audible bowel sounds EXT: Edematous bilateral lower extremity with elastic bandage on bilateral lower extremity with dry drainage noted NEURO: Alert and oriented to person, follows commands Vital Signs (last 8hr) Date Time Temp Pulse Resp B/P (MAP) Pulse Ox O2 Delivery O2 Flow Rate FiO2 09/14/24 10:31 95 Nasal Cannula* 3 32 09/14/24 08:45 97.9 71 16 127/60 96 Nasal Cannula 3.0 LABS: Hematology Labs: Test 09/13/24 04:07 Range/Units White Blood Count 11.5 H 4.8-10.8 K/uL Red Blood Count 3.42 L 4.50-6.20 MIL/uL Hemoglobin 8.7 L 14.0-18.0 g/dL Hematocrit 28.4 L 42-54 % Mean Corpuscular Volume 83.0 79-99 fL Mean Corpuscular Hemoglobin 25.4 L 27.0-33.0 pg Mean Corpuscular Hemoglobin Concent 30.6 L 32.0-36.0 g/dL Red Cell Distribution Width 17.9 H 11.0-15.5 % Platelet Count 551 H 130-400 K/uL Mean Platelet Volume 8.8 7.5-10.5 fL Immature Granulocyte % (Auto) 1.0 0-1 % Neutrophils (%) (Auto) 84.4 H 40.0-77.0 % Lymphocytes (%) (Auto) 5.1 L 21.0-51.0 % Monocytes (%) (Auto) 7.7 3.0-13.0 % Eosinophils (%) (Auto) 1.6 0.0-8.0 % Basophils (%) (Auto) 0.2 0.0-5.0 % Neutrophils # (Auto) 9.7 H 1.8-7.7 K/uL Lymphocytes # (Auto) 0.6 L 1.0-4.8 K/uL Monocytes # (Auto) 0.9 0.1-1.0 K/uL Eosinophils # (Auto) 0.18 0.00-0.70 K/uL Basophils # (Auto) 0.02 0.00-0.20 K/uL Absolute Immature Granulocyte (auto 0.12 0-1 K/uL Nucleated Red Blood Cells 0.2 H 0.0-0.19 % White Cell Morphology Comment See comments Red Blood Cell Morphology See comments Chemistry Labs: Test 09/14/24 05:47 09/13/24 08:00 Range/Units Sodium Level 139 136-145 mmol/L Potassium Level 3.1 L 3.5-5.1 mmol/L Chloride Level 93 L 101-111 mmol/L Carbon Dioxide Level 43 *H 21-32 mmol/L Blood Urea Nitrogen 65 H 7-18 mg/dL Creatinine 1.4 H 0.5-1.3 mg/dL Glomerular Filtration Rate Calc 51 >90 mL/min Random Glucose 121 H 70-105 mg/dL Total Calcium 8.1 L 8.5-10.1 mg/dL Whole Blood Glucose 113 H 70-110 MG/DL DIAGNOSTICS / RADIOLOGY RESULTS: [Reviewed] PLAN NEURO: Minimize central acting medications as possible. Maintain fall precautions, adequate lighting during the day PULMONARY: Supplemental 02 as needed. Maintain aspiration precautions at all times CARDIOVASCULAR: Follow hemodynamics. Vital signs per facility protocol GI & NUTRITION: Continue with nutritional support. Continue stool softeners and laxatives as needed. KIDNEYS & ELECTROLYTES: Strict monitoring of intake, output and overall fluid balance. Avoid nephrotoxic medications to the extent possible. Medications to be dosed according to renal function. Monitor electrolytes and replace as needed ENDOCRINE: Maintain blood glucose between 100-180 at all times. Hypoglycemia protocol in place INFECTIOUS DISEASE: Trend temperature, WBC and procalcitonin level Follow cultures, deescalate antibiotics as soon as possible. Panculture if new onset fever ONCOLOGY/HEMATOLOGY/COAGULATION: Monitor for s/s of bleeding Monitor hemoglobin, coagulation studies as needed SKIN: Pressure ulcer prevention per facility protocol Specialty mattress ORTHO/REHAB: Continue PT/OT Prophylaxis: Continue GI and DVT prophylaxis Code Status: Full Resuscitation Disposition: TBD Other: Total patient care time exceeds 35 minutes excluding all procedures. MACRINA CHANDLER Sep 14, 2024 15:45
--- NOTE | 2024-09-14 16:36 | NUR ---
Discharge Planning: As per Jacquelyn at [facility], unable to accept patient because "it is not cost effective." Referral sent to [facility]. Pending insurance authorization.
[2024-09-14 18:45] VITALS: RESP 19; O2SAT 97
[2024-09-14 20:00] VITALS: BP 132/61; PULSE 76; RESP 16; TEMP 98.2
[2024-09-14 21:01] VITALS: O2SAT 98
[2024-09-15 06:24] VITALS: PULSE 75; RESP 20; O2SAT 98
[2024-09-15 08:00] VITALS: BP 138/50; PULSE 74; RESP 22; TEMP 97.5; O2SAT 95
--- NOTE | 2024-09-15 12:24 | NUR ---
Discharge Planning: [facility] unable to accept patient d/t his weight, 326 lbs.
--- NOTE | 2024-09-15 12:27 | NUR ---
Discharge Planning: Correction, patient's weight is 426 lbs.
--- NOTE | 2024-09-15 15:07 | PN ---
[facility] PROGRESS NOTE Date Patient Seen: Sep 15, 2024 Time of Visit: 15:07 Supervising Physician: Dr. Colby Tierney Primary Care Physician: Dr. Weinberg Outpatient Specialists: [ ] Inpatient Consults: [ ] PROBLEM LIST: Severe sepsis without septic shock, improved POA Acute hypoxic respiratory failure, secondary to below POA Acute on chronic diastolic heart failure, EF of 55-60% Gram positive bacteremia, strep agalactiae group B positive on blood culture Acute gastroenteritis, pending stool studies POA Acute complicated cystitis, proteus vulgaris, POA Acute kidney injury, likely prerenal 2/2 hypovolemia, creatinine level of 1.8 on admission Metabolic alkalosis, likely contraction alkalosis Chronic lymphedema, POA Bilateral lower extremity cellulitis, wound care following POA Hyponatremia, POA NSTEMI, POA Morbid obesity, POA PLAN: DC zyvox and rocephin Continue cefazolin to complete X 14 days Pending stool studies Monitor volume status and creatinine Repeat blood culture negative Repeat labs in AM Wound care consult Venous doppler negative Echocardiogram reviewed Avoid nephrotoxic agents Renally dose all medications Monitor I&O Continue O2 therapy as needed, wean off as tolerated Keep head of bed above 30 Incentive spirometry DuoNeb q.6 hours Mucomyst b.i.d. Start PT Start CPAP, patient refused INTERVAL HISTORY: [This is a 79-year-old male with a history of chronic bilateral lymphedema who presented to the ED for evaluation of watery diarrhea and weakness associated with mild abdominal discomfort x2 days prior to arrival. Also reported decreased appetite, no nausea or vomiting on admission. He was treated with Zosyn, vancomycin, IV fluids with 3L NS, and Toradol. His labs on admission revealed leukocytosis with WBC of , hyponatremia at 133, elevated creatinine of 1.8 As well as elevated lactic acid at 3.3. Had mildly elevated liver enzymes, otherwise unremarkable with a bilirubin of 1.1. His CXR revealed bilateral pulmonary infiltrates. His CTA of the chest reveals mild bilateral ground-glass opacities with minimal right-sided pleural effusion as well as trivial left- sided pleural effusion. Negative for pulmonary embolism. His CT of the abdomen and pelvis revealed diverticulosis without diverticulitis, mild constipation and diffuse soft tissue anasarca. Blood pressure today is 115/85 with a heart rate of 74, afebrile. Patient continues with supplemental oxygen at 2 L NC. He did have low-grade temperature at 99 F last night, no fever. WBC today remain elevated at 18.3, electrolyte derangement improved, creatinine remains elevated at 1.1. Lactic acid is improved to 2.2. Patient also had mildly elevated troponin at 1:37 a.m., consistent with NSTEMI. His blood cultures are showing Gram-positive cocci in chains, pending final results. His urine cultures growing 10-50 K CFUs, pending final report. Procalcitonin was elevated at 1.25, ABG shows hypoxia with PO2 of 45. He is pending an echocardiogram.] 09/07 blood pressure is 152/65 with a heart rate of 72, afebrile. Patient remains hypoxic on 3 L NC. He has 500 mL documented urine output overnight. Continues on torsemide and metolazone. CBC shows improved WBC to 13, hemoglobin 8.6, platelets 374. BNP shows hyponatremia at 133, persistently elevated creatinine of 1.9, has not worsened. COVID and flu were negative. Initial blood cultures are positive 2/2 Gram-positive cocci in chains, pending susceptibility. Repeat blood cultures are negative. His urine culture is positive for Gram-negative rods, pending sensitivity. BNP is 526 and TSH is 1.96. He had an episode of atrial fibrillation with a heart rate of 75 overnight. An EKG was ordered, and confirmed atrial fibrillation with PVCs versus aberrancy, and a right bundle-branch block. No prior EKG available for comparison. His echocardiogram shows an EF of 55-60%, stage II diastolic dysfunction and mild aortic and mitral valve regurgitation. Venous Doppler was negative for DVT bilaterally. Pending wound care eval. His diarrhea has resolved, no bowel movement today. 09/08 Patient is growing strep agalactiae group B on blood culture. Repeat blood culture is negative. He has about 700ml of urine output overnight. Creatinine stable at 1.9. Patient is recommended for home health for continued IV antibiotics. He is weak and continues with mild respiratory distress. Will order PT for ambulation and CPAP at night. CXR today is unremarkable. 09/09 blood pressure is 123/70 with a heart rate of 75, afebrile. Patient continues on supplemental oxygen at 3 L NC. Has diuresed very little with 250 mL overnight. Continues with significant bilateral lower extremity swelling which is chronic lymphedema. Patient will need outpatient IV antibiotics to treat bacteremia and UTI. He has a sacral ulcer, pending wound care for eval as well as wound to bilateral lower extremities. He continues on metolazone 10 mg b.i.d. and torsemide 20 mg daily. Patient is growing Proteus vulgaris on urine culture which is sensitive to Rocephin. Repeat CXR is unremarkable. Patient and are agreeable to SNF. He refused to use CPAP at night. 09/10 Patient has diuresed significantly with 3350ml of urine output overnight. He is documented on room air but is still using supplemental oxygen upon visit. He states his breathing is improved. He has been working with PT. Stool studies not resulted yet. WBCs remain elevated at 14. Will adjust antibiotics. Patient is pending SNF for IV antibiotics. 09/11 Patient continues with weakness. His KUB is unremarkable, has had a bowel movement. He has diuresed 500ml overnight. Creatinine is 1.7 today. He continues on supplemental oxygen with 3L. No fever. Has been working with physical therapy. Continues with wound care. Pending SNF for continued IV antibiotics. 09/12 patient was initiated on spironolactone 25 mg b.i.d. yesterday, has diuresed about 2000 mL of urine output overnight. Per nursing note, patient has been refusing wound care due to feeling tired. WBCs most recently at two, creatinine at 1.7. Patient continues on cefazolin for bacteremia and acute complicated cystitis. Pending SNF for physical therapy and continued IV antibiotics. HE did work with physical therapy today as tolerated. An ABG was ordered and abnormal. His swelling to bilateral lower extremities is sig nificantly decreased. 09/13 patient has significantly decreased swelling to bilateral lower extremities. Continues with diuresis with 3100 mL of urine output overnight. Labs today show a bicarb of43 and a serum, consistent with contraction alkalosis. Per nursing report, patient has been refusing wound care and CPAP. His CBC shows persistent leukocytosis currently at 11. His ABG yesterday shows hypercapnia with a CO2 of 68, patient has refused BiPAP. He continues on antibiotics for bacteremia and complicated cystitis. 09/14 blood pressure is 127/60 with a heart rate of 71, afebrile. Patient continues on 3 L NC. He had about 1100 mL of urine output overnight with a net fluid balance of -934 mL. He continues on torsemide, metolazone and spironolactone. Patient continues with significant swelling to lower extremities but has improved remarkably since admission. His CBC is unremarkable, BNP shows improved creatinine to 1.4. Continues on IV antibiotics for UTI and bacteremia, pending SNF. Per discussion with patient at bedside, he states he is worn out and is now considering hospice. We will consult hospice nurse for evaluation. 09/15 patient was evaluated at bedside, was present for the evaluation. Patient continues on antibiotic therapy today with cefazolin, most recent white count was 11.8 on the . Pending further lab studies in the morning. Patient continues with diuresis at this time, states that the fluid overload is improving. Patient had requested hospice services yesterday, however in conversation today with him in his the patient will comply with two week of IV antibiotic therapy at a sniff facility prior to making his final determination for hospice. We are in agreement with this plan, no changes made to medical management at this time, continue antibiotic therapy pending authorization for sniff acceptance. REVIEW OF SYSTEMS: 12 point ROS reviewed with patient. Pertinent positives mentioned above. Otherwise negative. PHYSICAL EXAM: GENERAL: alert, weak, awake oriented x 3 HEENT: EOMI, Sclera non icteric, moist mucosa NECK: Supple, no JVD, trachea midline LUNGS: Diminished bibasilar area HEART: Regular rate and rhythm. Normal S1 and S2, without murmurs ABD: Distended abdomen with audible bowel sounds EXT: Edematous bilateral lower extremity with elastic bandage on bilateral lower extremity with dry drainage noted NEURO: Alert and oriented to person, follows commands Vital Signs (last 8hr) Date Time Temp Pulse Resp B/P (MAP) Pulse Ox O2 Delivery O2 Flow Rate FiO2 09/15/24 08:00 95 Nasal Cannula* 3 32 09/15/24 08:00 97.5 74 22 138/50 95 Nasal Cannula 3.0 LABS: Chemistry Labs: Test 09/14/24 05:47 Range/Units Sodium Level 139 136-145 mmol/L Potassium Level 3.1 L 3.5-5.1 mmol/L Chloride Level 93 L 101-111 mmol/L Carbon Dioxide Level 43 *H 21-32 mmol/L Blood Urea Nitrogen 65 H 7-18 mg/dL Creatinine 1.4 H 0.5-1.3 mg/dL Glomerular Filtration Rate Calc 51 >90 mL/min Random Glucose 121 H 70-105 mg/dL Total Calcium 8.1 L 8.5-10.1 mg/dL DIAGNOSTICS / RADIOLOGY RESULTS: [ ] PLAN NEURO: Minimize central acting medications as possible. Maintain fall precautions, adequate lighting during the day PULMONARY: Supplemental 02 as needed. Maintain aspiration precautions at all times CARDIOVASCULAR: Follow hemodynamics. Vital signs per facility protocol GI & NUTRITION: Continue with nutritional support. Continue stool softeners and laxatives as needed. KIDNEYS & ELECTROLYTES: Strict monitoring of intake, output and overall fluid balance. Avoid nephrotoxic medications to the extent possible. Medications to be dosed according to renal function. Monitor electrolytes and replace as needed ENDOCRINE: Maintain blood glucose between 100-180 at all times. Hypoglycemia protocol in place INFECTIOUS DISEASE: Trend temperature, WBC and procalcitonin level Follow cultures, deescalate antibiotics as soon as possible. Panculture if new onset fever ONCOLOGY/HEMATOLOGY/COAGULATION: Monitor for s/s of bleeding Monitor hemoglobin, coagulation studies as needed SKIN: Pressure ulcer prevention per facility protocol Specialty mattress ORTHO/REHAB: Continue PT/OT Prophylaxis: Continue GI and DVT prophylaxis Code Status: Full Resuscitation Disposition: TBD Other: Total patient care time exceeds 35 minutes excluding all procedures. ISRA GUERRERO Sep 15, 2024 15:07
--- NOTE | 2024-09-15 16:30 | NUR ---
PATIENT REFUSED BLOOD GLUCOSE CHECK.
[2024-09-15 18:56] VITALS: PULSE 64; RESP 18; O2SAT 99
[2024-09-15 20:00] VITALS: BP_SYST 104; BP_SYST 121; BP_DIAS 47; BP_DIAS 50; PULSE 65; RESP 18; TEMP 98.6
[2024-09-15 21:27] VITALS: O2SAT 97
[2024-09-16 05:55] LABS: BASOPHILS # (AUTO) 0.05 K/uL (0.00-0.20); BASOPHILS % (AUTO) 0.4 % (0.0-5.0); EOSINOPHILS # (AUTO) 0.33 K/uL (0.00-0.70); EOSINOPHILS % (AUTO) 2.7 % (0.0-8.0); HEMATOCRIT 29.5 % (42-54); IMMATURE GRANULOCYTE ABSOLUTE 0.08 K/uL (0-1); LYMPHOCYTES # (AUTO) 0.7 K/uL (1.0-4.8); LYMPHOCYTES % (AUTO) 5.5 % (21.0-51.0); MEAN CORPUSCULAR HEMOGLOBIN 25.7 pg (27.0-33.0); MEAN CORPUSCULAR HGB CONC 29.8 g/dL (32.0-36.0); MONOCYTES # (AUTO) 1.2 K/uL (0.1-1.0); MONOCYTES % (AUTO) 9.5 % (3.0-13.0); NEUTROPHILS # (AUTO) 9.9 K/uL (1.8-7.7); NEUTROPHILS % (AUTO) 81.2 % (40.0-77.0); PLATELET COUNT (AUTO) 431 K/uL (130-400); RED BLOOD CELL COUNT(AUTO) 3.43 MIL/uL (4.50-6.20); RED CELL DISTRIBUTION WIDTH 18.6 % (11.0-15.5); WHITE BLOOD COUNT (AUTO) 12.1 K/uL (4.8-10.8)
[2024-09-16 06:02] LABS: CREATININE 1.2 mg/dL (0.5-1.3); POTASSIUM 3.4 mmol/L (3.5-5.1)
[2024-09-16 06:24] LABS: B-TYPE NATRIURETIC PEPTIDE 436 pg/mL (0-100)
[2024-09-16 06:45] VITALS: PULSE 66; RESP 18; O2SAT 99
[2024-09-16] MEDS: PoTASSium chloRIDE 10MEQ SR 10 MEQ/TAB TAB.SR.24H PO ONE (07:19)
[2024-09-16 08:00] VITALS: BP 136/57; PULSE 64; RESP 19; TEMP 98.3
[2024-09-16 09:26] VITALS: O2SAT 96
--- NOTE | 2024-09-16 09:39 | NUR ---
REFUSED ISRA MACKEY NOTIFIED THAT PATIENT REFUSED TO HAVE ABGS DRAWN.
[2024-09-16 12:00] VITALS: TEMP 98.3
--- NOTE | 2024-09-16 12:27 | NUR ---
REFUSED PT. REFUSED TO HAVE HIS GLUCOSE AND VS CHECKED. PT. REFUSED TO HAVE ME CHANGE THE DRESSING TO HIS [facility]CRUM.
--- NOTE | 2024-09-16 13:00 | NUR ---
Discharge Update: Patient was referred to [facility]. Pending insurance authorization. Patient has been re-weighed and current weight is 299 lbs.
--- NOTE | 2024-09-16 13:20 | NUR ---
MIDLINE INSERTION 5FR 2LUMEN MIDLINE INSERTED TO RIGHT UPPER ARM BASILIC VEIN USING STERILE TECHNIQUE ULTRASOUND GUIDED USING MST. INTERNAL CATHETER LENGTH 15CM. EXTERNAL CATHETER LENGTH 0CM. MIDLINE CARE: -PERFORM HAND HYGIENE, WEAR GLOVES, SCRUB THE HUB FOR 15 SECONDS BEFORE EVERY ACCESS. -FLUSH BOTH LUMENS WITH 10ML NS FLUSH EVERY 12 HOURS IF LINE IS NOT IN USE AND CLAMP AFTER EVERY ACCESS. -CHANGE DRESSING, STATLOCK, AND PORT CAPS EVERY 7 DAYS AND PRN IF SOILED OR PEELING OFF.
--- NOTE | 2024-09-16 15:23 | NUR ---
WOUND CARE/PHOTO WOUND CARE TO SACRUM DONE. PHOTO OF WOUND TAKEN. DRESSINGS TO BLE WERE CHANGED LAST NIGHT, PER THE PATIENTS' SPOUSE SHE'D LIKE THEM CHANGED TONIGHT VERSUS AT THIS TIME.
--- NOTE | 2024-09-16 15:47 | PN ---
[facility] PROGRESS NOTE Date Patient Seen: Sep 16, 2024 Time of Visit: 15:44 Supervising Physician: Otto Tierney Primary Care Physician: Dr. Weinberg Outpatient Specialists: [ ] Inpatient Consults: [ ] PROBLEM LIST: Severe sepsis without septic shock, improved POA Acute hypoxic respiratory failure, secondary to below POA Acute on chronic diastolic heart failure, EF of 55-60% Gram positive bacteremia, strep agalactiae group B positive on blood culture Acute gastroenteritis, pending stool studies POA Acute complicated cystitis, proteus vulgaris, POA Acute kidney injury, likely prerenal 2/2 hypovolemia, creatinine level of 1.8 on admission Metabolic alkalosis, likely contraction alkalosis Chronic lymphedema, POA Bilateral lower extremity cellulitis, wound care following POA Hyponatremia, POA NSTEMI, POA Morbid obesity, POA PLAN: DC zyvox and rocephin Continue cefazolin to complete X 14 days Pending stool studies Monitor volume status and creatinine Repeat blood culture negative Repeat labs in AM Wound care consult Venous doppler negative Echocardiogram reviewed Avoid nephrotoxic agents Renally dose all medications Monitor I&O Continue O2 therapy as needed, wean off as tolerated Keep head of bed above 30 Incentive spirometry DuoNeb q.6 hours Mucomyst b.i.d. Start PT Start CPAP, patient refused INTERVAL HISTORY: [This is a 79-year-old male with a history of chronic bilateral lymphedema who presented to the ED for evaluation of watery diarrhea and weakness associated with mild abdominal discomfort x2 days prior to arrival. Also reported decreased appetite, no nausea or vomiting on admission. He was treated with Zosyn, vancomycin, IV fluids with 3L NS, and Toradol. His labs on admission revealed leukocytosis with WBC of , hyponatremia at 133, elevated creatinine of 1.8 As well as elevated lactic acid at 3.3. Had mildly elevated liver enzymes, otherwise unremarkable with a bilirubin of 1.1. His CXR revealed bilateral pulmonary infiltrates. His CTA of the chest reveals mild bilateral ground-glass opacities with minimal right-sided pleural effusion as well as trivial left- sided pleural effusion. Negative for pulmonary embolism. His CT of the abdomen and pelvis revealed diverticulosis without diverticulitis, mild constipation and diffuse soft tissue anasarca. Blood pressure today is 115/85 with a heart rate of 74, afebrile. Patient continues with supplemental oxygen at 2 L NC. He did have low-grade temperature at 99 F last night, no fever. WBC today remain elevated at 18.3, electrolyte derangement improved, creatinine remains elevated at 1.1. Lactic acid is improved to 2.2. Patient also had mildly elevated troponin at 1:37 a.m., consistent with NSTEMI. His blood cultures are showing Gram-positive cocci in chains, pending final results. His urine cultures growing 10-50 K CFUs, pending final report. Procalcitonin was elevated at 1.25, ABG shows hypoxia with PO2 of 45. He is pending an echocardiogram.] 09/07 blood pressure is 152/65 with a heart rate of 72, afebrile. Patient remains hypoxic on 3 L NC. He has 500 mL documented urine output overnight. Continues on torsemide and metolazone. CBC shows improved WBC to 13, hemoglobin 8.6, platelets 374. BNP shows hyponatremia at 133, persistently elevated creatinine of 1.9, has not worsened. COVID and flu were negative. Initial blood cultures are positive 2/2 Gram-positive cocci in chains, pending susceptibility. Repeat blood cultures are negative. His urine culture is positive for Gram-negative rods, pending sensitivity. BNP is 526 and TSH is 1.96. He had an episode of atrial fibrillation with a heart rate of 75 overnight. An EKG was ordered, and confirmed atrial fibrillation with PVCs versus aberrancy, and a right bundle-branch block. No prior EKG available for comparison. His echocardiogram shows an EF of 55-60%, stage II diastolic dysfunction and mild aortic and mitral valve regurgitation. Venous Doppler was negative for DVT bilaterally. Pending wound care eval. His diarrhea has resolved, no bowel movement today. 09/08 Patient is growing strep agalactiae group B on blood culture. Repeat blood culture is negative. He has about 700ml of urine output overnight. Creatinine stable at 1.9. Patient is recommended for home health for continued IV antibiotics. He is weak and continues with mild respiratory distress. Will order PT for ambulation and CPAP at night. CXR today is unremarkable. 09/09 blood pressure is 123/70 with a heart rate of 75, afebrile. Patient continues on supplemental oxygen at 3 L NC. Has diuresed very little with 250 mL overnight. Continues with significant bilateral lower extremity swelling which is chronic lymphedema. Patient will need outpatient IV antibiotics to treat bacteremia and UTI. He has a sacral ulcer, pending wound care for eval as well as wound to bilateral lower extremities. He continues on metolazone 10 mg b.i.d. and torsemide 20 mg daily. Patient is growing Proteus vulgaris on urine culture which is sensitive to Rocephin. Repeat CXR is unremarkable. Patient and are agreeable to SNF. He refused to use CPAP at night. 09/10 Patient has diuresed significantly with 3350ml of urine output overnight. He is documented on room air but is still using supplemental oxygen upon visit. He states his breathing is improved. He has been working with PT. Stool studies not resulted yet. WBCs remain elevated at 14. Will adjust antibiotics. Patient is pending SNF for IV antibiotics. 09/11 Patient continues with weakness. His KUB is unremarkable, has had a bowel movement. He has diuresed 500ml overnight. Creatinine is 1.7 today. He continues on supplemental oxygen with 3L. No fever. Has been working with physical therapy. Continues with wound care. Pending SNF for continued IV antibiotics. 09/12 patient was initiated on spironolactone 25 mg b.i.d. yesterday, has diuresed about 2000 mL of urine output overnight. Per nursing note, patient has been refusing wound care due to feeling tired. WBCs most recently at two, creatinine at 1.7. Patient continues on cefazolin for bacteremia and acute complicated cystitis. Pending SNF for physical therapy and continued IV antibiotics. HE did work with physical therapy today as tolerated. An ABG was ordered and abnormal. His swelling to bilateral lower extremities is significantly decreased. 09/13 patient has significantly decreased swelling to bilateral lower extremities. Continues with diuresis with 3100 mL of urine output overnight. Labs today show a bicarb of43 and a serum, consistent with contraction alkalosis. Per nursing report, patient has been refusing wound care and CPAP. His CBC shows persistent leukocytosis currently at 11. His ABG yesterday shows hypercapnia with a CO2 of 68, patient has refused BiPAP. He continues on antibiotics for bacteremia and complicated cystitis. 09/14 blood pressure is 127/60 with a heart rate of 71, afebrile. Patient continues on 3 L NC. He had about 1100 mL of urine output overnight with a net fluid balance of -934 mL. He continues on torsemide, metolazone and spironolactone. Patient continues with significant swelling to lower extremities but has improved remarkably since admission. His CBC is unremarkable, BNP shows improved creatinine to 1.4. Continues on IV antibiotics for UTI and bacteremia, pending SNF. Per discussion with patient at bedside, he states he is worn out and is now considering hospice. We will consult hospice nurse for evaluation. 09/15 patient was evaluated at bedside, was present for the evaluation. Patient continues on antibiotic therapy today with cefazolin, most recent white count was 11.8 on the . Pending further lab studies in the morning. Patient continues with diuresis at this time, states that the fluid overload is improving. Patient had requested hospice services yesterday, however in conversation today with him in his the patient will comply with two week of IV antibiotic therapy at a sniff facility prior to making his final determination for hospice. We are in agreement with this plan, no changes made to medical management at this time, continue antibiotic therapy pending authorization for sniff acceptance. 09/16 patient was evaluated at bedside with present, he is currently comfortable, continues on diuretics at this time. Patient continues on IV cefazolin, pending sniff placement for IV antibiotics. Patient continues to be with the plan of sniff for two weeks prior to determining if he would like to go on hospice. Patient's white count today is 12.1, hemoglobin stable at 8.8. Renal function slightly improved with a creatinine of 1.2. BNP is down today to 436. REVIEW OF SYSTEMS: 12 point ROS reviewed with patient. Pertinent positives mentioned above. Otherwise negative. PHYSICAL EXAM: GENERAL: alert, weak, awake oriented x 3 HEENT: EOMI, Sclera non icteric, moist mucosa NECK: Supple, no JVD, trachea midline LUNGS: Diminished bibasilar area HEART: Regular rate and rhythm. Normal S1 and S2, without murmurs ABD: Distended abdomen with audible bowel sounds EXT: Edematous bilateral lower extremity with elastic bandage on bilateral lower extremity with dry drainage noted NEURO: Alert and oriented to person, follows commands Vital Signs (last 8hr) Date Time Temp Pulse Resp B/P (MAP) Pulse Ox O2 Delivery O2 Flow Rate FiO2 09/16/24 12:00 98.2 11/20/24 09:26 96 Nasal Cannula* 3 32 09/16/24 08:00 98.2 64 19 136/57 95 Nasal Cannula 3.0 LABS: Hematology Labs: Test 09/16/24 05:43 Range/Units White Blood Count 12.1 H 4.8-10.8 K/uL Red Blood Count 3.43 L 4.50-6.20 MIL/uL Hemoglobin 8.8 L 14.0-18.0 g/dL Hematocrit 29.5 L 42-54 % Mean Corpuscular Volume 86.0 79-99 fL Mean Corpuscular Hemoglobin 25.7 L 27.0-33.0 pg Mean Corpuscular Hemoglobin Concent 29.8 L 32.0-36.0 g/dL Red Cell Distribution Width 18.6 H 11.0-15.5 % Platelet Count 431 H 130-400 K/uL Mean Platelet Volume 8.8 7.5-10.5 fL Immature Granulocyte % (Auto) 0.7 0-1 % Neutrophils (%) (Auto) 81.2 H 40.0-77.0 % Lymphocytes (%) (Auto) 5.5 L 21.0-51.0 % Monocytes (%) (Auto) 9.5 3.0-13.0 % Eosinophils (%) (Auto) 2.7 0.0-8.0 % Basophils (%) (Auto) 0.4 0.0-5.0 % Neutrophils # (Auto) 9.9 H 1.8-7.7 K/uL Lymphocytes # (Auto) 0.7 L 1.0-4.8 K/uL Monocytes # (Auto) 1.2 H 0.1-1.0 K/uL Eosinophils # (Auto) 0.33 0.00-0.70 K/uL Basophils # (Auto) 0.05 0.00-0.20 K/uL Absolute Immature Granulocyte (auto 0.08 0-1 K/uL Nucleated Red Blood Cells 0.0 0.0-0.19 % Chemistry Labs: Test 09/16/24 05:43 Range/Units Sodium Level 139 136-145 mmol/L Potassium Level 3.4 L 3.5-5.1 mmol/L Chloride Level 94 L 101-111 mmol/L Carbon Dioxide Level 50 *H 21-32 mmol/L Blood Urea Nitrogen 55 H 7-18 mg/dL Creatinine 1.2 0.5-1.3 mg/dL Glomerular Filtration Rate Calc 62 >90 mL/min Random Glucose 128 H 70-105 mg/dL Total Calcium 8.1 L 8.5-10.1 mg/dL B-Type Natriuretic Peptide 436 H 0-100 pg/mL DIAGNOSTICS / RADIOLOGY RESULTS: [ ] PLAN NEURO: Minimize central acting medications as possible. Maintain fall precautions, adequate lighting during the day PULMONARY: Supplemental 02 as needed. Maintain aspiration precautions at all times CARDIOVASCULAR: Follow hemodynamics. Vital signs per facility protocol GI & NUTRITION: Continue with nutritional support. Continue stool softeners and laxatives as needed. KIDNEYS & ELECTROLYTES: Strict monitoring of intake, output and overall fluid balance. Avoid nephrotoxic medications to the extent possible. Medications to be dosed according to renal function. Monitor electrolytes and replace as needed ENDOCRINE: Maintain blood glucose between 100-180 at all times. Hypoglycemia protocol in place INFECTIOUS DISEASE: Trend temperature, WBC and procalcitonin level Follow cultures, deescalate antibiotics as soon as possible. Panculture if new onset fever ONCOLOGY/HEMATOLOGY/COAGULATION: Monitor for s/s of bleeding Monitor hemoglobin, coagulation studies as needed SKIN: Pressure ulcer prevention per facility protocol Specialty mattress ORTHO/REHAB: Continue PT/OT Prophylaxis: Continue GI and DVT prophylaxis Code Status: Full Resuscitation Disposition: TBD Other: Total patient care time exceeds 35 minutes excluding all procedures. ISRA GUERRERO Sep 16, 2024 15:47
[2024-09-16 16:00] VITALS: BP 119/69; PULSE 63; RESP 18; TEMP 98
[2024-09-16 18:40] VITALS: PULSE 69; RESP 18; O2SAT 99
[2024-09-17 05:44] VITALS: BP 139/58; PULSE 66; RESP 18; TEMP 98.6
[2024-09-17 07:19] VITALS: PULSE 74; RESP 18; O2SAT 96
--- NOTE | 2024-09-17 10:46 | DS ---
[facility] DISCHARGE SUMMARY Date Patient Seen: Sep 17, 2024 Time of Visit: 10:43 Supervising Physician: Dr. Tierney Primary Care Physician: Dr. Weinberg Outpatient Specialists: [ ] Inpatient Consults: [ ] HOSPITAL COURSE: HPI (per admitting provider) 79-year-old male with past medical history of chronic lymphedema, bilateral lower extremity venous insufficiency, morbid obesity who presented to ED via EMS with complaint of diarrhea x2 days with associated generalized body weakness and found to have NSTEMI, LY, possible community-acquired pneumonia, severe sepsis, urinary tract infection, and possible bilateral lower extremity cellulitis, with chronic lymphedema. Patient was seen and examined in ED with present at bedside. According to the patient has been having lots of diarrhea for the past days however today patient is unable to get up on his own that is why she activated EMS to bring patient here for medical evaluation. In ED CBC was done and showed WBC [place] more [place] [address], hemoglobin of 9.3, hematocrit of 30.5, and platelet of 391. His chemistry is notable for creatinine level of 1.8, BUN 42, sodium of 133, initial lactic acid of 2.2 Up to 3.3. UA was obtain and showed positive leuko esterase and nitrites. Chest x-ray was obtained and showed small pleural effusion with ground-glass opacities bilaterally, CT of the chest was also done and showed no acute embolism, and redemonstration of ground-glass opacities. CT of the abdomen did not reveal any acute intra-abdominal process however there is mild constipation with anasarca. Initial evaluation in ED patient was found to be hypoxic requiring O2 therapy, currently on nasal cannula with 97% O2 saturation on the monitor. Patient was also initiated on sepsis protocol and started on Zosyn IV. At present patient is currently hemodynamically stable, not in acute respiratory distress, normal sinus rhythm on the monitor. Patient denies any confusion, headache, chest pain, however he is complaining of abdominal distention, generalized body weakness, and poor appetite. On initial evaluation there is bilateral lower extremity edema, with elastic bandage bilateral lower extremity with dried drainage. Patient denies any smoking, illicit drug use and drinks occasionally. Patient is vaccinated against COVID virus and his flu shot is up-to-date. The patient was treated for the following problems: Patient is being discharged to [facility] facility for two weeks of continuous IV antibiotic treatment for bacteremia infection from strep agalact iae group B positive ACTIVE PROBLEM LIST FOR THE HOSPITALIZATION: Severe sepsis without septic shock, improved POA Acute hypoxic respiratory failure, secondary to below POA Acute on chronic diastolic heart failure, EF of 55-60% Gram positive bacteremia, strep agalactiae group B positive on blood culture Acute gastroenteritis, pending stool studies POA Acute complicated cystitis, proteus vulgaris, POA Acute kidney injury, likely prerenal 2/2 hypovolemia, creatinine level of 1.8 on admission Metabolic alkalosis, likely contraction alkalosis Chronic lymphedema, POA Bilateral lower extremity cellulitis, wound care following POA Hyponatremia, POA NSTEMI, POA Morbid obesity, POA CHRONIC PROBLEMS: continue previous management per PCP unless otherwise indicated 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 PCP notified of patients admission, hospital course and discharge. PHYSICAL EXAM: GENERAL: alert, weak, awake oriented x 3 HEENT: EOMI, Sclera non icteric, moist mucosa NECK: Supple, no JVD, trachea midline LUNGS: Diminished bibasilar area HEART: Regular rate and rhythm. Normal S1 and S2, without murmurs ABD: Distended abdomen with audible bowel sounds EXT: Edematous bilateral lower extremity with elastic bandage on bilateral lower extremity with dry drainage noted NEURO: Alert and oriented to person, follows commands FOLLOW-UP: Follow-up with PCP in 2-3 days RECOMMENDATIONS: See Discharge Instructions This case was seen and discussed with my supervising physician. More than 30 minutes spent on discharge process, including evaluation of the patient, discussion with nursing staff, medication reconciliation and follow-up appointments ISRA GUERRERO Sep 17, 2024 10:46
--- NOTE | 2024-09-17 11:20 | NUR ---
REPORT ATTEMPT NURSE TO CALL BACK
--- NOTE | 2024-09-17 12:16 | NUR ---
REPORT GIVEN TO JOE WEAVER WITH [facility] AT [id number] EMS CALLED FOR PICKUP
--- NOTE | 2024-09-17 14:45 | DS ---
[facility] DISCHARGE SUMMARY Date Patient Seen: Sep 17, 2024 Time of Visit: 14:45 Supervising Physician: [ ] Primary Care Physician: Dr. 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 PCP notified of patients admission, hospital course and discharge. PHYSICAL EXAM: GENERAL: alert, weak, awake oriented x 3 HEENT: EOMI, Sclera non icteric, moist mucosa NECK: Supple, no JVD, trachea midline LUNGS: Diminished bibasilar area HEART: Regular rate and rhythm. Normal S1 and S2, without murmurs ABD: Distended abdomen with audible bowel sounds EXT: Edematous bilateral lower extremity with elastic bandage on bilateral lower extremity with dry drainage noted NEURO: Alert and oriented to person, follows commands FOLLOW-UP: Follow-up with PCP in 2-3 days RECOMMENDATIONS: See Discharge Instructions This case was seen and discussed with my supervising physician. More than 30 minutes spent on discharge process, including evaluation of the patient, discussion with nursing staff, medication reconciliation and follow-up appointments ISRA GUERRERO Sep 17, 2024 14:45
--- NOTE | 2024-09-17 15:28 | NUR ---
PATIENT PICKED UP BY EMS
== END 2024-09-17 15:30 | DRG 871 ==
LOC: EDH 16:22 → INTOOBSV 19:11 → OBSVTOIN 19:11 → EDHIP 19:11 → 3DH 09-06 00:49
PROVIDERS: ADMIT Internal Medicine Critical Care Medicine; ATTEND Internal Medicine Critical Care Medicine
PROC: 05HB33Z Insertion of Infusion Device into Right Basilic Vein, Percutaneous Approach (ICD-10-PCS; principal; 2024-09-05)
DX: A41.9 Sepsis, unspecified organism (principal); I21.4 Non-ST elevation (NSTEMI) myocardial infarction; J96.01 Acute respiratory failure with hypoxia; J18.9 Pneumonia, unspecified organism; I50.33 Acute on chronic diastolic (congestive) heart failure; N17.9 Acute kidney failure, unspecified; L03.115 Cellulitis of right lower limb; L03.116 Cellulitis of left lower limb; E87.1 Hypo-osmolality and hyponatremia; E87.3 Alkalosis; Z68.41 Body mass index [BMI] 40.0-44.9, adult; N30.00 Acute cystitis without hematuria; D64.9 Anemia, unspecified; K59.00 Constipation, unspecified; R65.20 Severe sepsis without septic shock; I89.0 Lymphedema, not elsewhere classified; E66.01 Morbid (severe) obesity due to excess calories; K52.9 Noninfective gastroenteritis and colitis, unspecified; E86.1 Hypovolemia
CPT/HCPCS: 36415; 36600; 71045; 71270; 74018; 74176; 76770; 80048; 80053; 80076; 81001; 82435; 82803; 82947; 82948; 83605; 83690; 83735; 83880; 84100; 84132; 84145; 84295; 84443; 84484; 85018; 85025; 85027; 85610; 87040; 87086; 87186; 87635; 87804; 93005; 93306; 93356; 93970; 94660; 96361; 96374; 96375; 99291; G0378; J0690; J0692; J0696; J1644; J1885; J1940; J2020; J2543; Q9967; 3370; C1750; J3370